=== PATIENT | female | born 1950 | race Caucasian/White ===

== ENCOUNTER → 2024-02-02 10:28 | Outpatient (REF) | payer MEDICARE, OTHER, SELFPAY | LOC: RCS 10:28 | PROVIDERS: ATTENDING PHYSICIAN Internal Medicine Cardiovascular Disease | DX: I34.1 Nonrheumatic mitral (valve) prolapse (principal); I48.0 Paroxysmal atrial fibrillation | CPT/HCPCS: 93306; 93356 ==

== ENCOUNTER → 2024-02-04 09:07 | Outpatient (REF) | payer MEDICARE, OTHER, SELFPAY ==
[2024-02-04 11:14] LABS: TSH 0.02 uIU/ml (0.47-4.68)
== END ==
LOC: REG 09:07
PROVIDERS: ATTENDING PHYSICIAN Internal Medicine Endocrinology, Diabetes & Metabolism; FAMILY PHYSICIAN Family Medicine
DX: E89.0 Postprocedural hypothyroidism (principal)
CPT/HCPCS: 36415; 84443

== ENCOUNTER → 2024-03-17 08:55 | Outpatient (REF) | payer MEDICARE, OTHER, SELFPAY ==
[2024-03-17 10:54] LABS: TSH < 0.02 uIU/ml (0.47-4.68)
== END ==
LOC: REG 08:55
PROVIDERS: ATTENDING PHYSICIAN Internal Medicine Endocrinology, Diabetes & Metabolism; FAMILY PHYSICIAN Family Medicine
DX: E89.0 Postprocedural hypothyroidism (principal)
CPT/HCPCS: 36415; 84443

== ENCOUNTER → 2024-05-10 11:26 | Outpatient (REF) | payer MEDICARE, OTHER, SELFPAY ==
[2024-05-10 13:08] LABS: % Basophils 0.2 % (0-2); % Immature Granulocytes 0.5 % (0-0.5); % Lymphocytes 6.6 % (20.5-51.1); % Monocytes 2.2 % (1.7-9.3); % Neutrophils 90.5 % (42.2-75.2); Absolute Immature Granulocytes 0.1 10^3/uL (0-0.05); Absolute Lymphocytes 0.9 10^3/uL (1.2-3.4); Absolute Monocytes 0.3 10^3/uL (0.1-0.6); Absolute Neutrophils 11.8 10^3/uL (1.4-6.5); Hematocrit 38.2 % (37.0-47.0); Mean Corpuscular Hgb 31.2 pg (27.0-31.0); Mean Corpuscular Volume 91.6 fL (81.0-99.0); Mean Platelet Volume 9.4 fL (7.4-10.4); Nucleated Red Blood Cells % 0 %; Platelet Count 289 10^3/uL (130-400); Red Blood Cell Count 4.17 10^6/uL (4.20-5.40); Red Cell Dist. Width 16.7 % (11.5-14.5)
[2024-05-10 13:55] LABS: ALT (SGPT) 34 U/L (0-35); AST (SGOT) 36 U/L (14-36); Albumin 4.3 g/dl (3.5-5.0); Alkaline Phosphatase 101 U/L (38-126); Blood Urea Nitrogen 20 mg/dl (7-17); Calcium 9.3 mg/dl (8.4-10.2); Carbon Dioxide 30 mmol/L (22-30); Chloride 100 mmol/L (98-107); Glucose 124 mg/dl (70-99); Potassium 4.9 mmol/L (3.5-5.1); Sodium 134 mmol/L (135-145); Total Bilirubin 0.5 mg/dl (0.2-1.3); Total Protein 6.8 g/dl (6.3-8.2); eGFR > 60.00
[2024-05-10 14:08] LABS: Free T4 1.61 ng/dl (0.78-2.19)
[2024-05-10 14:29] LABS: TSH 0.09 uIU/ml (0.47-4.68)
== END ==
LOC: REG 11:26
PROVIDERS: ATTENDING PHYSICIAN Internal Medicine Endocrinology, Diabetes & Metabolism; FAMILY PHYSICIAN Family Medicine; REFERRING PHYSICIAN Internal Medicine Medical Oncology
DX: E89.0 Postprocedural hypothyroidism (principal); C25.9 Malignant neoplasm of pancreas, unspecified
CPT/HCPCS: 36415; 80053; 84439; 84443; 85025; 86301

== ENCOUNTER → 2024-06-14 08:45 | Outpatient (REF) | payer MEDICARE, OTHER, SELFPAY ==
[2024-06-14 09:44] LABS: % Eosinophils 2.9 % (0-6); % Immature Granulocytes 0.2 % (0-0.5); % Lymphocytes 29.7 % (20.5-51.1); % Monocytes 9.8 % (1.7-9.3); % Neutrophils 56.4 % (42.2-75.2); Absolute Basophils 0.1 10^3/uL (0-0.2); Absolute Eosinophils 0.2 10^3/uL (0-0.7); Absolute Lymphocytes 2.5 10^3/uL (1.2-3.4); Absolute Monocytes 0.8 10^3/uL (0.1-0.6); Absolute Neutrophils 4.7 10^3/uL (1.4-6.5); Hematocrit 42.5 % (37.0-47.0); Hemoglobin 14.5 g/dL (12.0-16.0); Mean Corp Hgb Conc. 34.1 g/dL (33.0-37.0); Mean Corpuscular Hgb 31.3 pg (27.0-31.0); Mean Corpuscular Volume 91.6 fL (81.0-99.0); Mean Platelet Volume 9.3 fL (7.4-10.4); Nucleated Red Blood Cells % 0 %; Platelet Count 280 10^3/uL (130-400); Red Blood Cell Count 4.64 10^6/uL (4.20-5.40); Red Cell Dist. Width 15.7 % (11.5-14.5); White Blood Cell Count 8.4 10^3/uL (4.8-10.8)
[2024-06-14 11:46] LABS: ALT (SGPT) 38 U/L (0-35); AST (SGOT) 55 U/L (14-36); Albumin 4.8 g/dl (3.5-5.0); Alkaline Phosphatase 102 U/L (38-126); Blood Urea Nitrogen 16 mg/dl (7-17); Calcium 9.8 mg/dl (8.4-10.2); Carbon Dioxide 27 mmol/L (22-30); Chloride 100 mmol/L (98-107); Glucose 113 mg/dl (70-99); Sodium 141 mmol/L (135-145); Total Bilirubin 0.6 mg/dl (0.2-1.3); Total Protein 7.4 g/dl (6.3-8.2); eGFR > 60.00
[2024-06-16 02:49] LABS: CA 19-9 <2 U/mL (<=35)
== END ==
LOC: REG 08:45
PROVIDERS: ATTENDING PHYSICIAN Internal Medicine Medical Oncology; FAMILY PHYSICIAN Family Medicine
DX: C25.9 Malignant neoplasm of pancreas, unspecified (principal)
CPT/HCPCS: 36415; 80053; 85025; 86301

== ENCOUNTER → 2024-08-21 09:03 | Outpatient (REF) | payer MEDICARE, OTHER, SELFPAY ==
[2024-08-21 09:48] LABS: % Basophils 0.8 % (0-2); % Eosinophils 2.7 % (0-6); % Immature Granulocytes 0.3 % (0-0.5); % Lymphocytes 25.7 % (20.5-51.1); % Monocytes 10.3 % (1.7-9.3); % Neutrophils 60.2 % (42.2-75.2); Absolute Basophils 0.1 10^3/uL (0-0.2); Absolute Eosinophils 0.2 10^3/uL (0-0.7); Absolute Lymphocytes 1.9 10^3/uL (1.2-3.4); Absolute Monocytes 0.8 10^3/uL (0.1-0.6); Absolute Neutrophils 4.4 10^3/uL (1.4-6.5); Hematocrit 44.7 % (37.0-47.0); Hemoglobin 15.6 g/dL (12.0-16.0); Mean Corp Hgb Conc. 34.9 g/dL (33.0-37.0); Mean Corpuscular Hgb 31.7 pg (27.0-31.0); Mean Corpuscular Volume 90.9 fL (81.0-99.0); Mean Platelet Volume 9.5 fL (7.4-10.4); Nucleated Red Blood Cells % 0 %; Platelet Count 373 10^3/uL (130-400); Red Blood Cell Count 4.92 10^6/uL (4.20-5.40); Red Cell Dist. Width 15.7 % (11.5-14.5); White Blood Cell Count 7.3 10^3/uL (4.8-10.8)
[2024-08-21 11:07] LABS: ALT (SGPT) 78 U/L (0-35); AST (SGOT) 74 U/L (14-36); Albumin 4.3 g/dl (3.5-5.0); Alkaline Phosphatase 171 U/L (38-126); Blood Urea Nitrogen 20 mg/dl (7-17); Calcium 9.6 mg/dl (8.4-10.2); Carbon Dioxide 28 mmol/L (22-30); Chloride 101 mmol/L (98-107); Glucose 117 mg/dl (70-99); Potassium 4.9 mmol/L (3.5-5.1); Sodium 141 mmol/L (135-145); Total Bilirubin 0.4 mg/dl (0.2-1.3); eGFR > 60.00
[2024-08-21 11:10] LABS: TSH 3.64 uIU/ml (0.47-4.68)
[2024-08-22 17:13] LABS: Thyroglobulin <0.1 ng/mL (1.3-31.8); Thyroglobulin Antibodies <0.9 IU/mL (0.0-4.0)
== END ==
LOC: REG 09:03
PROVIDERS: ATTENDING PHYSICIAN Internal Medicine Endocrinology, Diabetes & Metabolism; FAMILY PHYSICIAN Family Medicine
DX: E89.0 Postprocedural hypothyroidism (principal); C73 Malignant neoplasm of thyroid gland
CPT/HCPCS: 36415; 80053; 84432; 84443; 85025; 86800

== ENCOUNTER 2024-10-08 12:12 | Emergency (ER) | payer MEDICARE, OTHER, SELFPAY ==
[2024-10-08 12:13] VITALS: BP 150/84
[2024-10-08 13:20] VITALS: BP 138/83
[2024-10-08 13:23] VITALS: BP 138/83
[2024-10-08 14:16] VITALS: BP 124/68
[2024-10-08] MEDS: NSS 1000 IV (14:18)
[2024-10-08] MEDS: MORPHINE SULFATE 4 MG IV (14:19)
[2024-10-08] MEDS: ZOFRAN 4 MG IV (14:19)
[2024-10-08 14:29] LABS: % Basophils 0.5 % (0-2); % Eosinophils 0.8 % (0-6); % Immature Granulocytes 0.4 % (0-0.5); % Lymphocytes 7.4 % (20.5-51.1); % Monocytes 1.6 % (1.7-9.3); % Neutrophils 89.3 % (42.2-75.2); Absolute Basophils 0.1 10^3/uL (0-0.2); Absolute Eosinophils 0.1 10^3/uL (0-0.7); Absolute Lymphocytes 0.8 10^3/uL (1.2-3.4); Absolute Monocytes 0.2 10^3/uL (0.1-0.6); Absolute Neutrophils 9.8 10^3/uL (1.4-6.5); Hematocrit 36.5 % (37.0-47.0); Hemoglobin 12.7 g/dL (12.0-16.0); Mean Corp Hgb Conc. 34.8 g/dL (33.0-37.0); Mean Corpuscular Hgb 32.2 pg (27.0-31.0); Mean Corpuscular Volume 92.4 fL (81.0-99.0); Mean Platelet Volume 9.3 fL (7.4-10.4); Nucleated Red Blood Cells % 0 %; Platelet Count 214 10^3/uL (130-400); Red Blood Cell Count 3.95 10^6/uL (4.20-5.40); Red Cell Dist. Width 17.1 % (11.5-14.5); White Blood Cell Count 10.9 10^3/uL (4.8-10.8)
--- NOTE | 2024-10-08 14:39 | ED.GENMED ---
History of Present Illness
General
Chief Complaint: Cancer Problem
Source: patient
Exam Limitations: none
Time Seen by Provider: 10/08/24 13:43
Nursing documentation reviewed up to this point in time: agreed with
History of Present Illness
History of Present Illness:
74-year-old female with history of hypothyroidism, stage IV pancreatic cancer presents to the emergency room with her for evaluation mainly of leg pain and pelvic pain. Patient unfortunately was diagnosed with stage IV pancreatic cancer and
has been mainly following through [facility] (Dr. Tristan Porter is her oncologist) although she recently did a clinical trial through [facility] which was unfortunately unsuccessful. After this clinical trial she had about a month of chemotherapy
holiday and unfortunately during that period had significant progression of her cancer found to have metastasis to liver and lung and so she was recently started on chemotherapy once again. Throughout the past few months she has been having pains
in her left leg. 2 weeks ago as part of diagnostic workup she had an ultrasound of the leg that was negative for DVT. She has been managing her symptoms with Tylenol and Motrin but she feels that her symptoms are worsening and she says she cannot
even sleep due to her left leg pain mainly. She discussed with her oncologist who recommended she come to the emergency room for evaluation and pain management. She has noticed a small bump on the medial aspect of the left stewart but no edema. No
change in the skin. She denies any trauma or injury. She also reports some pain into the left groin. She denies any significant back pain. She has had abdominal pains and various chest pains related to her cancer but nothing new recently. She
denies any other new complaints
Past History
Past History
ED Past Medical History: Cancer and Hypothyroidism
ED Past Surgical History: Other
Social History
Tobacco: Non-smoker
Personal:
Living: with family
Review of Systems
Review of Systems
All Other Systems: ROS reviewed and negative except as documented in HPI and ROS
Constitutional: Denies fever
Musculoskeletal: Reports other (Leg and groin pain)
Skin: Denies rash
Phy Exam
Physical Exam
Physical Exam:
General: Awake, alert, oriented x3; no acute distress
Head: Normocephalic, atraumatic
Eyes: Conjunctiva normal, sclera anicteric
Throat: Airway intact, handling secretions
Neck: Trachea midline
Lungs: Breathing comfortably no distress
Heart: Regular rate
Abd: Soft, non distended, nontender
Neuro: Cranial nerves grossly intact, speech fluid
Skin: no rash, no wounds, no erythema or ecchymosis to the leg
Extremities: No edema in extremities, equal pulses in all extremities; she does have some mild tenderness around the left mid stewart and a firm nodule left mid stewart which is tender to the touch but no overlying skin changes
Scores
Heart Failure Risk
Heart Failure Risk Score: Not Applicable
Heart Score for Chest Pain Patients
STEMI patient?: Not applicable
Withdrawal Assessment of Alcohol
Withdrawal Assessment Completed?: Not applicable
Course
Orders/Labs/Results
Orders:
Orders
10/08/24 13:44
HYDROmorphone [Dilaudid] 1 mg IV NOW STA
Ondansetron Injectable [Zofran] 4 mg IV NOW STA
10/08/24 13:45
0.9% Sodium Chloride 1000 ml [Nss] 1,000 ml IV BOLUS
10/08/24 14:03
CR Leg Tibia/fibula Left 2 Vw Urgent
Comment:
Reason For Exam: leg pain, cancer history
10/08/24 14:05
Morphine Sulfate 4 mg IV NOW STA
10/08/24 14:15
CA 19-9 [S] Urgent
Complete Blood Count/With Diff Urgent
Comprehensive Metabolic Panel Urgent
Lipase Urgent
10/08/24 15:09
US Periph Venous LOWER Ext LT Urgent
Comment:
Reason For Exam: left leg pain
10/08/24 16:31
Urinalysis Reflex To Culture Urgent
Date Specimen was Collected: 10/08/24
Time Specimen was Collected: 16:30
Urine Microscopic Reflex Cult Urgent
10/08/24 17:40
Ibuprofen [Motrin] 400 mg PO NOW STA
Oxycodone [Roxicodone] 2.5 mg PO NOW STA
Abnormal Lab Results
10/08/24 10/08/24
14:15 16:31
WBC 10.9 H 10^3/uL
(4.8-10.8)
RBC 3.95 L 10^6/uL
(4.20-5.40)
Hct 36.5 L %
(37.0-47.0)
MCH 32.2 H pg
(27.0-31.0)
RDW 17.1 H %
(11.5-14.5)
Absolute Neuts (auto) 9.8 H 10^3/uL
(1.4-6.5)
Absolute Lymphs (auto) 0.8 L 10^3/uL
(1.2-3.4)
Neutrophils % 89.3 H %
(42.2-75.2)
Lymphocytes % 7.4 L %
(20.5-51.1)
Monocytes % 1.6 L %
(1.7-9.3)
Sodium 131 L mmol/L
(135-145)
Chloride 97 L mmol/L
(98-107)
BUN 18 H mg/dl
(7-17)
Glucose 112 H mg/dl
(70-99)
AST 147 H U/L
(14-36)
ALT 125 H U/L
(0-35)
Alkaline Phosphatase 261 H U/L
(38-126)
Urine Ketones 1+ A
(Negative)
Leukocyte Esterase Rfl Trace A
(Negative)
Urine Bacteria (Reflex) Few A
(Negative)
10/08/24 14:15
10/08/24 14:15
Vital Signs
Initial and Last Documented VS:
Initial Vital Signs
Temp Pulse Resp BP Pulse Ox
36.5 C 92 16 150/84 97
10/08/24 12:13 10/08/24 12:13 10/08/24 12:13 10/08/24 12:13 10/08/24 12:13
Last Documented Vital Signs
Temp Pulse Resp BP Pulse Ox
36.5 C 93 16 126/75 93
10/08/24 12:13 10/08/24 13:23 10/08/24 13:23 10/08/24 17:00 10/08/24 17:15
MDM/Problems Addressed
Differential Diagnosis Includes:
Bony metastasis, contusion/hematoma, DVT
MDM/Problems Addressed:
74-year-old female presents for evaluation of worsening pain in the left leg in the setting of metastatic pancreatic cancer. Pain uncontrolled with Tylenol and Motrin. No trauma or injury. Vitals and exam as above. She was ruled out for DVT 2
weeks ago at [facility]�can repeat interval scan to definitively rule out. Will send basic labs�patient is due for outpatient lab work and would like to have them drawn today (CBC, CMP, CA 19-9). Will check x-ray of the left leg. Will discuss with
patient's oncologist�patient would like to limit diagnostic she says that she has been given a prognosis of 2 months to live and that she is working towards palliative treatment and really mainly wants to focus on pain control for her symptoms at
this point in time. Will treat symptomatically.
Discussed case with patient's oncologist Dr. Porter. Possible that this is bony mets versus radiculopathy versus pain from enlarging lymph nodes. Agreed with workup as above, pain control and outpatient follow-up.
Labs reviewed: CBC unremarkable, CMP no clinically significant abnormalities. X-ray negative for any bony pathology. DVT study negative. Patient's pain was well-controlled here. I had a long discussion with patient and . I did explain
that MRI would probably be the next diagnostic steps to evaluate if this is a radicular pain from lumbar pathology. Offered admission for MRI and symptom control versus discharge with pain control and outpatient follow-up as planned�mary is
scheduled for outpatient MRI within a week. She feels comfortable with discharge with pain control and outpatient follow-up. Urged to return if symptoms are worsening. All questions answered.
Chronic conditions affecting care:
Pancreatic cancer
Acute Exacerbation and/or Progression of Chronic Illness:
Acutely hypertensive
Acute Exacerbation and/or Progression of Chronic Illness: HTN
*Radiology
Radiology exam reviewed: radiology read reviewed
*Pulse Oximetry
Patient hypoxic: no
*Critical Care Note
Total Time (30-74mins, 75-104mins- exclusive of procedures): Not Applicable
Data Reviewed
Source: patient, records and spouse
Patient Management
Discussion with other providers: Senior Account Clerk (Discussed with patient's oncologist)
ED Attending Note
-
Portions of this chart may have been created with voice recognition software.� Occasional wrong word or��sound alike� substitutions may have occurred due to the inherent limitations of voice recognition software.
Discharge Plan
Departure
Patient Disposition: Home (Routine Discharge)
Date of Disposition: 10/08/24
Time of Disposition: 17:44
Patient with high blood pressure during this ER visit?: Yes
Discharge Problem:
Leg pain
Instructions: Cancer Pain Syndromes (DC)
Prescriptions:
New
oxycodone 5 mg tablet
5 mg PO Q4H PRN (Reason: Pain) Qty: 20 0RF
No Action
levothyroxine 88 MCG tablet
88 mcg PO SUTUWETHFRSA
ascorbic acid (vitamin C) [Vitamin C] 500 MG tablet
1,000 mg PO DAILY
diphenhydramine HCl [Banophen] 25 MG capsule
25 mg PO DAILYPRN PRN (Reason: ALLERGY TO COLD)
Patient Comments:
COLD UTICARIA
epinephrine [EpiPen] 0.3 MG/0.3/SYRINGE auto-injector
0.3 mg IM PRN PRN (Reason: ALLERGIC REACTION TO COLD)
Patient Comments:
COLD UTICARIA
methylprednisolone [Medrol (Patrick)] 4 MG tablets,dose pack
4 tab PO . DIRECT PRN
Patient Comments:
COLD URTICARIA
albuterol sulfate 1 PUFF HFA aerosol inhaler
2 puff inhalation R Q4HPRN PRN (Reason: SOB FROM COLD ALLERGY)
cholecalciferol (vitamin D3) 1,000 UNITS tablet
1,000 units PO DAILY
omega-3 fatty acids-fish oil 1 EACH capsule
1 ea PO DAILY
multivitamin with folic acid [Tab-A-Adina] 1 TABLET tablet
1 tab PO DAILY
Biotin
2 tab PO DAILY
Calcium 400mg
400 mg PO TID@0800,1200,1600
Referrals:
Damon Sousa MD [Family Provider] - Call in 1-3 days for appt
Tristan Porter MD [Non-Admitting Privileges] - Keep scheduled appt
Activity Restrictions/Additional Instructions:
Thank you for visiting the Emergency Department at [facility].
1. Please schedule a follow up appointment as directed. Call first thing tomorrow morning to make an appointment.
2. If indicated, please take your medications as instructed and indicated on discharge paperwork.
3. If any of your symptoms do not improve, or persist, or become more severe within 6-12 hours, please return to the emergency department for further care.
4. Please return to the emergency department if you develop a headache, neck pain/stiffness, fever greater than 100.4F, chest pain, shortness of breath, persistent nausea, vomiting, slurred speech, difficulty walking, numbness/tingling, weakness,
signs of infection or any other symptoms that are worrisome to you.
Please call [phone] if you have any questions.
Interventions
Interventions:
*Risk Screen - Suicide Last Done: 10/08/24 12:13
*General Assessment Last Done: 10/08/24 13:23
*Neglect/Abuse Screening Last Done: 10/08/24 13:18
ED- Fall Risk Assessment Last Done: 10/08/24 13:24
*ED COVID-19 Vaccine History Last Done: 10/08/24 13:18
Discharge Date and Time
Print Language: TELUGU
[2024-10-08 14:46] LABS: ALT (SGPT) 125 U/L (0-35); AST (SGOT) 147 U/L (14-36); Albumin 4.1 g/dl (3.5-5.0); Alkaline Phosphatase 261 U/L (38-126); Blood Urea Nitrogen 18 mg/dl (7-17); Calcium 8.7 mg/dl (8.4-10.2); Carbon Dioxide 28 mmol/L (22-30); Chloride 97 mmol/L (98-107); Glucose 112 mg/dl (70-99); Lipase 40 U/L (23-300); Potassium 4.7 mmol/L (3.5-5.1); Sodium 131 mmol/L (135-145); Total Bilirubin 0.6 mg/dl (0.2-1.3); Total Protein 6.6 g/dl (6.3-8.2); eGFR > 60.00
[2024-10-08 16:13] VITALS: BP 114/59
[2024-10-08 16:57] LABS: Urine Albumin Trace (Neg - Trace); Urine Bilirubin Negative (Negative); Urine Character Clear (Clear); Urine Color Yellow; Urine Glucose Negative (Negative); Urine Ketone 1+ (Negative); Urine Leukocyte Trace (Negative); Urine Nitrite Negative (Negative); Urine Occult Blood Negative (Negative); Urine Urobilinogen Negative (Neg - 1+)
[2024-10-08 17:00] VITALS: BP 126/75
[2024-10-08 17:14] LABS: Urine Squamous Cell 0-2 /LPF (Few)
[2024-10-08 17:15] LABS: Urine Bacteria Few (Negative); Urine Red Blood Cell 0-2 /HPF (0-2)
[2024-10-08] MEDS: ROXICODONE 2.5 MG PO (17:55)
[2024-10-08] MEDS: MOTRIN 400 MG PO (17:55)
[2024-10-10 19:49] LABS: CA 19-9 <2 U/mL (<=35)
== END 2024-10-08 18:31 | disposition home or self-care (01) ==
LOC: EMR 12:12
PROVIDERS: EMERGENCY PHYSICIAN Emergency Medicine; FAMILY PHYSICIAN Family Medicine
DX: M79.605 Pain in left leg (principal); C25.9 Malignant neoplasm of pancreas, unspecified; C78.7 Secondary malignant neoplasm of liver and intrahepatic bile duct; C78.00 Secondary malignant neoplasm of unspecified lung; E03.9 Hypothyroidism, unspecified
CPT/HCPCS: 96374; 96375; 96361; 99284; 73590; 80053; 81003; 81015; 83690; 85025; 86301; 93971

== ENCOUNTER → 2024-10-17 11:56 | Outpatient (REF) | payer MEDICARE, OTHER, SELFPAY | LOC: RAD 11:56 | PROVIDERS: ATTENDING PHYSICIAN Internal Medicine Hospice and Palliative Medicine; FAMILY PHYSICIAN Family Medicine | DX: C25.9 Malignant neoplasm of pancreas, unspecified (principal) | CPT/HCPCS: 71046 ==

== ENCOUNTER 2024-10-18 16:14 | Inpatient (IN) | payer MEDICARE, OTHER, SELFPAY ==
[2024-10-18] VITALS (20 sets, daily range): BP systolic 88–141; BP diastolic 55–88
--- NOTE | 2024-10-18 11:20 | ED.GENMED ---
ED Provider Triage
<JAREN Juarez - Last Filed: 10/18/24 11:27>
-
Patient seen by provider in Triage?: Seen in Triage
Attestation: A medical screening examination has been initiated by a qualified medical provider. Based on the assessment performed at this time, it has been determined that an emergent medical condition may exist and the patient has been informed
that further medical evaluation and possible additional diagnostic testing may be needed.
HPI: 74 yr old female with hx of stage 4 pancreatic cancer w/ lung mets presents for SOB since last Tuesday. Pt had outpt chest xray yesterday suspicious for pneumonia. Pt has had cough /sweating however SOB has been getting worse.
GENERAL: Alert , in no apparent distress
EYE: No visual abnormalities.
NECK: Trachea midline
ENT: No visible abnormalities.
LUNGS: No acute respiratory distress
NEUROLOGICAL: Alert and oriented
SKIN: Skin intact. No visible changes.
MUSCULOSKELETAL: Moving extremities normally
PSYCH: Normal and appropriate interaction.
This is a medical evaluation conducted in person to initiate diagnostic evaluation and provide initial therapeutics. Please see further documentation by the treating clinician.
History of Present Illness
<JAREN Juarez - Last Filed: 10/18/24 11:27>
General
Chief Complaint: Breathing Problem
Time Seen by Provider: 10/18/24 14:39
<Mauricio Lopez MD - Last Filed: 10/18/24 21:19>
General
Source: patient
Exam Limitations: none
Nursing documentation reviewed up to this point in time: agreed with
History of Present Illness
History of Present Illness:
74-year-old female with past medical history of hypothyroidism, stage IV pancreatic cancer presents to the emergency room with her for evaluation of shortness of breath. Patient follows through [facility] for treatment of her pancreatic
cancer. Patient reports that since last Tuesday she has had progressive shortness of breath associate with mild nonproductive cough. She denies any chest pain. Denies any swelling in the legs although she has had pain in her legs which she was
evaluated for including multiple negative DVT studies. She says that she disclosed the symptoms to her oncologist who sent her for an x-ray yesterday which was concerning for pneumonia and significant pleural effusion; she was referred to the ER
and was recommended for follow-up CT of the chest today.
Past History
<JAREN Juarez - Last Filed: 10/18/24 11:27>
Past History
ED Past Medical History: Cancer and Hypothyroidism
ED Past Surgical History: Other
Social History
Tobacco: Non-smoker
Personal:
Living: with family
Review of Systems
<Mauricio Lopez MD - Last Filed: 10/18/24 21:19>
Review of Systems
All Other Systems: ROS reviewed and negative except as documented in HPI and ROS
Constitutional: Denies fever or chills
Respiratory: Reports cough and trouble breathing
Cardiac: Denies chest pain
Musculoskeletal: Reports muscle pain; Denies edema
Neurological: Denies headache
Phy Exam
<Mauricio Lopez MD - Last Filed: 10/18/24 21:19>
Physical Exam
Physical Exam:
General: Awake, alert, oriented x3; anxious appearing
Head: Normocephalic, atraumatic
Eyes: Conjunctiva normal, sclera anicteric
Throat: Airway intact, handling secretions
Neck: Trachea midline, supple without meningismus
Lungs: Patient is tachypneic and conversationally dyspneic; low normal pulse ox; breath sounds diminished throughout all lung orosco, no focal wheezing rales or rhonchi appreciated
Heart: Regular rate and rhythm, no murmurs, gallops, or rubs
Neuro: No gross deficits
Skin: Warm and dry
Extremities: No edema in extremities, warm and well-perfused
Scores
<Mauricio Lopez MD - Last Filed: 10/18/24 21:19>
Heart Failure Risk
Heart Failure Risk Score: Not Applicable
Heart Score for Chest Pain Patients
STEMI patient?: Not applicable
Withdrawal Assessment of Alcohol
Withdrawal Assessment Completed?: Not applicable
Course
<JAREN Juarez - Last Filed: 10/18/24 11:27>
Orders/Labs/Results
Orders:
Orders
10/18/24 11:23
Electrocardiogram (*1) Stat
Reason for Study: Other
Other Reason for Exam: chest pain
CT Chest PE Study Urgent
Comment:
Reason For Exam: SOb hx of pancreatic cancer w/ mets
EKG- Treatment ONCE
10/18/24 11:32
Complete Blood Count/With Diff Urgent
Comprehensive Metabolic Panel Urgent
10/18/24 Dinner
Regular
At Your Request: Full Participation
10/18/24 15:28
IR[facility] CONSULT Urgent
Consulting Provider: Kapil Pitts
Was physician already notified: Yes
Reason for Consult/Procedure: thoracentesis
Acknowledgement that appropriate orders are entered: Yes
10/18/24 15:29
LevoFLOXacin 750 MG/150 ML [Levaquin] 750 mg in 150 ml IV NOW
10/18/24 15:33
Sputum Culture [Respiratory Culture/Gram Stain] Urgent
JOHN Source: Sputum
Specimen Description:
10/18/24 15:39
COVID-19 Antigen Urgent
Source: Nasal Swab
Blood Culture Q30M
JOHN Source: Blood/Venous
Specimen Description:
Influenza A+B Rapid Molecular Urgent
JOHN Source: Nasal Swab
Specimen Description:
10/18/24 15:53
Blood Culture Q30M
JOHN Source: Blood/Venous
Specimen Description:
10/18/24 15:54
Admit/Transfer Patient As Directed
Co-Sign Provider:
Level of Care: Inpatient admission
Assign to:: Medical/Surgical
Physician / Group: robert
Diagnosis: pneumonia
Reason for Hospitalization: pneumonia, pleural effusions
Expected length of stay greater than two midnights?: Yes
ELOS- Estimated Length of Stay in days: 2
I certify the patient meets the requirements for IP care: Yes
10/18/24 15:55
Code Status As Directed
Resuscitation Status: Full Code
PRN Pain Medication Management As Directed
May give lesser potent ordered pain med per pt: Yes
preference::
Protocol:: Medication orders for pain may be administered in a
manner that supports deferring to patient preference
when the pt is:
- Requesting an ordered lesser potent pain medication.
Least to most potent pain medications are defined
as: acetaminophen < NSAID < tramadol < opioids
(morphine, oxycodone, hydromorphone).
- Requesting a lesser dose of the same medication IF
ORDERED.
- Requesting a less intrusive route of administration
if both routes are prescribed by the provider (PO <
IV).
10/18/24 15:58
Legionella Urinary Antigen Urgent
JOHN Source: Urine
Specimen Description:
MRSA Screen Routine
JOHN Source: Nose
Specimen Description:
Strep pneumoniae Antigen Urgent
JOHN Source: Urine
Specimen Description:
10/18/24 16:55
Body Fluid Amylase Routine
Fluid Source: Pleural
Date Specimen was Collected: 10/18/24
Time Specimen was Collected: 16:57
Body Fluid Glucose Routine
Fluid Source: Pleural
Date Specimen was Collected: 10/18/24
Time Specimen was Collected: 16:57
Body Fluid LDH Routine
Fluid Source: Pleural
Date Specimen was Collected: 10/18/24
Time Specimen was Collected: 16:57
Body Fluid Protein Routine
Fluid Source: Pleural
Body Fluid Triglycerides Routine
Fluid Source: Pleural
Date Specimen was Collected: 10/18/24
Time Specimen was Collected: 16:57
Body Fluid pH Routine
Fluid Source: Pleural
Date Specimen was Collected: 10/18/24
Time Specimen was Collected: 16:57
Fluid Culture with Gram Stain Routine
JOHN Source: Pleural Fluid
Specimen Description:
Comment: post procedure
IRAD Cytology Routine
Date Specimen was Collected: 10/18/24
Time Specimen was Collected: 16:57
Source: Pleural Fluid, Right
Clinical Impression: pna, panc cancer lung mets
History of Malignancy: yes
History of Radiation / Chemotherapy: yes
Submitting Physician: Dr. pitts
10/18/24 16:59
Body Fluid Cell Count Routine
What is the Body Fluid: pleural fluid
Date Specimen was Collected: 10/18/24
Time Specimen was Collected: 16:47
Comment: post procedure
Fluid Culture with Gram Stain Routine
JOHN Source: Pleural Fluid
Specimen Description:
Date Specimen was Collected: 10/18/24
Time Specimen was Collected: 16:47
Comment: post procedure
10/18/24 18:07
Ondansetron HCl [Zofran] 8 mg PO Q8HPRN PRN
10/18/24 19:25
0.9% Sodium Chloride 1000 ml [Nss] 1,000 ml IV 100 mls/hr
Acetaminophen [Tylenol] 650 mg PO Q4HPRN PRN
VANCOMYCIN Pharmacy to Dose [VANCOCIN Pharmacy to Dose] 1 each Pharmacy To Prepare [Call Pharmacy To Prepare] 0 ml IV PER PROTOCOL
10/18/24 19:25
LDH Routine
Comment: post procedure, add on to morning labs if already drawn
Total Protein Routine
Comment: post procedure, add on to morning labs if already drawn
Activity As Directed
Activity Level: As Tolerated
Vital Signs As Directed
Frequency: Per unit guidelines
DX Deep Vein Thrombosis Video Routine
10/18/24 20:00
Calcium Carbonate [Oscal Camacho 500] 500 mg PO BID
Heparin 5,000 units SC Q12
Oxycodone [Roxicodone] 5 mg PO Q6H
10/18/24 21:00
Ibuprofen [Motrin] 400 mg PO Q6H
10/18/24 22:00
Loratadine [Claritin] 10 mg PO HS
10/19/24 06:00
Complete Blood Count/With Diff IN AM
Comprehensive Metabolic Panel IN AM
Levothyroxine [Synthroid] 88 mcg PO DAILY @ 0600
10/19/24 08:00
Ascorbic Acid [Vitamin C] 1,000 mg PO DAILY
Cholecalciferol (Vitamin D3) [VITAMIN D3 (cholecalciferol)] 25 mcg PO DAILY
Multivitamin [Theragran] 1 tablet PO DAILY
10/20/24 16:00
LevoFLOXacin 750 MG/150 ML [Levaquin] 750 mg in 150 ml IV Q48H
Abnormal Lab Results
10/18/24
11:32
RBC 3.73 L 10^6/uL
(4.20-5.40)
Hgb 11.9 L g/dL
(12.0-16.0)
Hct 34.7 L %
(37.0-47.0)
MCH 31.9 H pg
(27.0-31.0)
RDW 16.1 H %
(11.5-14.5)
MPV 10.7 H fL
(7.4-10.4)
Abs Immat Gran (auto) 0.1 H 10^3/uL
(0-0.05)
Immature Gran % 1.2 H %
(0-0.5)
Sodium 130 L mmol/L
(135-145)
Chloride 94 L mmol/L
(98-107)
BUN 20 H mg/dl
(7-17)
Glucose 114 H mg/dl
(70-99)
AST 111 H U/L
(14-36)
ALT 83 H U/L
(0-35)
Alkaline Phosphatase 332 H U/L
(38-126)
10/18/24 11:32
10/18/24 11:32
Vital Signs
Initial and Last Documented VS:
Initial Vital Signs
Temp Pulse Resp BP Pulse Ox
36.9 C 91 30 141/88 94
10/18/24 11:20 10/18/24 11:20 10/18/24 11:20 10/18/24 11:20 10/18/24 11:20
Last Documented Vital Signs
Temp Pulse Resp BP Pulse Ox
37.1 C 86 21 107/67 97
10/18/24 16:08 10/18/24 21:00 10/18/24 21:00 10/18/24 21:00 10/18/24 21:00
<Mauricio Lopez MD - Last Filed: 10/18/24 21:19>
Orders/Labs/Results
Orders:
Orders
10/18/24 11:23
Electrocardiogram (*1) Stat
Reason for Study: Other
Other Reason for Exam: chest pain
CT Chest PE Study Urgent
Comment:
Reason For Exam: SOb hx of pancreatic cancer w/ mets
EKG- Treatment ONCE
10/18/24 11:32
Complete Blood Count/With Diff Urgent
Comprehensive Metabolic Panel Urgent
10/18/24 Dinner
Regular
At Your Request: Full Participation
10/18/24 15:28
IRAD CONSULT Urgent
Consulting Provider: Kapil Pitts
Was physician already notified: Yes
Reason for Consult/Procedure: thoracentesis
Acknowledgement that appropriate orders are entered: Yes
10/18/24 15:29
LevoFLOXacin 750 MG/150 ML [Levaquin] 750 mg in 150 ml IV NOW
10/18/24 15:33
Sputum Culture [Respiratory Culture/Gram Stain] Urgent
JOHN Source: Sputum
Specimen Description:
10/18/24 15:39
COVID-19 Antigen Urgent
Source: Nasal Swab
Blood Culture Q30M
JOHN Source: Blood/Venous
Specimen Description:
Influenza A+B Rapid Molecular Urgent
JOHN Source: Nasal Swab
Specimen Description:
10/18/24 15:53
Blood Culture Q30M
JOHN Source: Blood/Venous
Specimen Description:
10/18/24 15:54
Admit/Transfer Patient As Directed
Co-Sign Provider:
Level of Care: Inpatient admission
Assign to:: Medical/Surgical
Physician / Group: robert
Diagnosis: pneumonia
Reason for Hospitalization: pneumonia, pleural effusions
Expected length of stay greater than two midnights?: Yes
ELOS- Estimated Length of Stay in days: 2
I certify the patient meets the requirements for IP care: Yes
10/18/24 15:55
Code Status As Directed
Resuscitation Status: Full Code
PRN Pain Medication Management As Directed
May give lesser potent ordered pain med per pt: Yes
preference::
Protocol:: Medication orders for pain may be administered in a
manner that supports deferring to patient preference
when the pt is:
- Requesting an ordered lesser potent pain medication.
Least to most potent pain medications are defined
as: acetaminophen < NSAID < tramadol < opioids
(morphine, oxycodone, hydromorphone).
- Requesting a lesser dose of the same medication IF
ORDERED.
- Requesting a less intrusive route of administration
if both routes are prescribed by the provider (PO <
IV).
10/18/24 15:58
Legionella Urinary Antigen Urgent
JOHN Source: Urine
Specimen Description:
MRSA Screen Routine
JOHN Source: Nose
Specimen Description:
Strep pneumoniae Antigen Urgent
JOHN Source: Urine
Specimen Description:
10/18/24 16:55
Body Fluid Amylase Routine
Fluid Source: Pleural
Date Specimen was Collected: 10/18/24
Time Specimen was Collected: 16:57
Body Fluid Glucose Routine
Fluid Source: Pleural
Date Specimen was Collected: 10/18/24
Time Specimen was Collected: 16:57
Body Fluid LDH Routine
Fluid Source: Pleural
Date Specimen was Collected: 10/18/24
Time Specimen was Collected: 16:57
Body Fluid Protein Routine
Fluid Source: Pleural
Body Fluid Triglycerides Routine
Fluid Source: Pleural
Date Specimen was Collected: 10/18/24
Time Specimen was Collected: 16:57
Body Fluid pH Routine
Fluid Source: Pleural
Date Specimen was Collected: 10/18/24
Time Specimen was Collected: 16:57
Fluid Culture with Gram Stain Routine
JOHN Source: Pleural Fluid
Specimen Description:
Comment: post procedure
IR[facility] Cytology Routine
Date Specimen was Collected: 10/18/24
Time Specimen was Collected: 16:57
Source: Pleural Fluid, Right
Clinical Impression: pna, panc cancer lung mets
History of Malignancy: yes
History of Radiation / Chemotherapy: yes
Submitting Physician: Dr. pitts
10/18/24 16:59
Body Fluid Cell Count Routine
What is the Body Fluid: pleural fluid
Date Specimen was Collected: 10/18/24
Time Specimen was Collected: 16:47
Comment: post procedure
Fluid Culture with Gram Stain Routine
JOHN Source: Pleural Fluid
Specimen Description:
Date Specimen was Collected: 10/18/24
Time Specimen was Collected: 16:47
Comment: post procedure
10/18/24 18:07
Ondansetron HCl [Zofran] 8 mg PO Q8HPRN PRN
10/18/24 19:25
0.9% Sodium Chloride 1000 ml [Nss] 1,000 ml IV 100 mls/hr
Acetaminophen [Tylenol] 650 mg PO Q4HPRN PRN
VANCOMYCIN Pharmacy to Dose [VANCOCIN Pharmacy to Dose] 1 each Pharmacy To Prepare [Call Pharmacy To Prepare] 0 ml IV PER PROTOCOL
10/18/24 19:25
LDH Routine
Comment: post procedure, add on to morning labs if already drawn
Total Protein Routine
Comment: post procedure, add on to morning labs if already drawn
Activity As Directed
Activity Level: As Tolerated
Vital Signs As Directed
Frequency: Per unit guidelines
DX Deep Vein Thrombosis Video Routine
10/18/24 20:00
Calcium Carbonate [Oscal Camacho 500] 500 mg PO BID
Heparin 5,000 units SC Q12
Oxycodone [Roxicodone] 5 mg PO Q6H
10/18/24 21:00
Ibuprofen [Motrin] 400 mg PO Q6H
10/18/24 22:00
Loratadine [Claritin] 10 mg PO HS
10/19/24 06:00
Complete Blood Count/With Diff IN AM
Comprehensive Metabolic Panel IN AM
Levothyroxine [Synthroid] 88 mcg PO DAILY @ 0600
10/19/24 08:00
Ascorbic Acid [Vitamin C] 1,000 mg PO DAILY
Cholecalciferol (Vitamin D3) [VITAMIN D3 (cholecalciferol)] 25 mcg PO DAILY
Multivitamin [Theragran] 1 tablet PO DAILY
10/20/24 16:00
LevoFLOXacin 750 MG/150 ML [Levaquin] 750 mg in 150 ml IV Q48H
Abnormal Lab Results
10/18/24
11:32
RBC 3.73 L 10^6/uL
(4.20-5.40)
Hgb 11.9 L g/dL
(12.0-16.0)
Hct 34.7 L %
(37.0-47.0)
MCH 31.9 H pg
(27.0-31.0)
RDW 16.1 H %
(11.5-14.5)
MPV 10.7 H fL
(7.4-10.4)
Abs Immat Gran (auto) 0.1 H 10^3/uL
(0-0.05)
Immature Gran % 1.2 H %
(0-0.5)
Sodium 130 L mmol/L
(135-145)
Chloride 94 L mmol/L
(98-107)
BUN 20 H mg/dl
(7-17)
Glucose 114 H mg/dl
(70-99)
AST 111 H U/L
(14-36)
ALT 83 H U/L
(0-35)
Alkaline Phosphatase 332 H U/L
(38-126)
10/18/24 11:32
10/18/24 11:32
Vital Signs
Initial and Last Documented VS:
Initial Vital Signs
Temp Pulse Resp BP Pulse Ox
36.9 C 91 30 141/88 94
10/18/24 11:20 10/18/24 11:20 10/18/24 11:20 10/18/24 11:20 10/18/24 11:20
Last Documented Vital Signs
Temp Pulse Resp BP Pulse Ox
37.1 C 86 21 107/67 97
10/18/24 16:08 10/18/24 21:00 10/18/24 21:00 10/18/24 21:00 10/18/24 21:00
<Mauricio Lopez MD - Last Filed: 10/18/24 21:19>
MDM/Problems Addressed
Differential Diagnosis Includes:
Pneumonia, malignant effusion, pneumothorax, pulmonary embolism, CHF
MDM/Problems Addressed:
74-year-old female presents for evaluation of worsening shortness of breath since Tuesday. She arrives to us with tachypnea, low normal pulse ox. Chest x-ray done as an outpatient yesterday showed bilateral pleural effusions and findings
concerning for pneumonia. Physical exam as above. Labs were sent in triage including a CBC and a CMP which showed no clinically significant abnormalities�she has stably abnormal LFTs and mild hyponatremia, stable anemia. She was ordered for a CT
chest in triage to rule out PE and to better evaluate findings on previous chest x-ray. I did review appears to show bilateral pneumonia with significant pleural effusions. Suspect will need thoracentesis, will cover with antibiotics. Will admit
for continued management. Case discussed with hospitalist for admission. Case discussed with IR to consider thoracentesis.
Chronic conditions affecting care:
Pancreatic cancer
<Mauricio Lopez MD - Last Filed: 10/18/24 21:19>
*Radiology
Radiology exam reviewed: preliminary read by ED provider and radiology read reviewed
*Pulse Oximetry
Patient hypoxic: no
*EKG
Interpreted by ED Provider?: Yes
Heart Rate: 90
Rate: normal
Rhythm: sinus and PAC's
[place]: left axis deviation
Interval: normal interval
QRS Pattern: normal QRS
Ischemia: no ischemia
*Critical Care Note
Total Time (30-74mins, 75-104mins- exclusive of procedures): Not Applicable
Data Reviewed
Review of Other/Old Records Reveals: Labs and Records
Source: patient, records and spouse
<Mauricio Lopez MD - Last Filed: 10/18/24 21:19>
Patient Management
Discussion with other providers: Hospitalist (Discussed with hospitalist)
Escalation/DeEscalation of care consider admission/obs:
Admission indicated
ED Attending Note
<JAREN Juarez - Last Filed: 10/18/24 11:27>
-
Portions of this chart may have been created with voice recognition software.� Occasional wrong word or��sound alike� substitutions may have occurred due to the inherent limitations of voice recognition software.
Discharge Plan
Departure
Patient Disposition: Admit
Date of Disposition: 10/18/24
Time of Disposition: 15:31
Admit to doctor: Robert
Presentation/result/management discussed w/ accepting MD/DO: Hospitalist
Discharge Problem:
Pneumonia, Pleural effusion
Interventions
Interventions:
*Risk Screen - Suicide Last Done: 10/18/24 11:20
*General Assessment Last Done: 10/18/24 11:20
ED- Fall Risk Assessment Last Done: 10/18/24 14:50
*ED COVID-19 Vaccine History Last Done: 10/18/24 11:20
ED- Cardiac Assessment Last Done: 10/18/24 14:50
ED- Pulmonary Assessment Last Done: 10/18/24 14:50
[2024-10-18 12:10] LABS: % Basophils 0.5 % (0-2); % Eosinophils 0.5 % (0-6); % Immature Granulocytes 1.2 % (0-0.5); % Lymphocytes 23.3 % (20.5-51.1); % Monocytes 5.9 % (1.7-9.3); % Neutrophils 68.6 % (42.2-75.2); Absolute Immature Granulocytes 0.1 10^3/uL (0-0.05); Absolute Lymphocytes 1.4 10^3/uL (1.2-3.4); Absolute Monocytes 0.4 10^3/uL (0.1-0.6); Absolute Neutrophils 4.1 10^3/uL (1.4-6.5); Hematocrit 34.7 % (37.0-47.0); Hemoglobin 11.9 g/dL (12.0-16.0); Mean Corp Hgb Conc. 34.3 g/dL (33.0-37.0); Mean Corpuscular Hgb 31.9 pg (27.0-31.0); Nucleated Red Blood Cells % 0 %; Red Blood Cell Count 3.73 10^6/uL (4.20-5.40); Red Cell Dist. Width 16.1 % (11.5-14.5)
[2024-10-18 12:13] LABS: ALT (SGPT) 83 U/L (0-35); AST (SGOT) 111 U/L (14-36); Albumin 4.3 g/dl (3.5-5.0); Alkaline Phosphatase 332 U/L (38-126); Blood Urea Nitrogen 20 mg/dl (7-17); Calcium 9.4 mg/dl (8.4-10.2); Carbon Dioxide 27 mmol/L (22-30); Chloride 94 mmol/L (98-107); Glucose 114 mg/dl (70-99); Potassium 4.6 mmol/L (3.5-5.1); Sodium 130 mmol/L (135-145); Total Bilirubin 0.6 mg/dl (0.2-1.3); eGFR 58.75
[2024-10-18 13:31] LABS: Mean Platelet Volume 10.7 fL (7.4-10.4); Platelet Count 142 10^3/uL (130-400)
[2024-10-18] MEDS: LEVAQUIN 150 IV (15:35)
--- NOTE | 2024-10-18 16:00 | HPS.HSE ---
Family Physician
-
Family Physician: Damon Sousa
Chief Complaint
-
cough, shortness of breath
History of Present Illness
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
asthma, osteopenia, melanoma in 2005, mitral valve prolapse, presenting with shortness of breath and productive cough since last Tuesday. Patient had outpatient chest x-ray yesterday suspicious for pneumonia. She has been having cough and
sweating.
She does not smoke or drink alcohol.
Medical History
Past Medical History
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
osteopenia, melanoma in 2005, mitral valve prolapse,)
Past Surgical History: Reports None
Social History
Tobacco: Non-smoker
Alcohol: None
Drug: None
Family History
Family History: Not pertinent
Allergies / Home Medications
Allergies reflects when Allergies were last updated in [employer].
Home Medications with original date entered in [employer]
Allergy/Medication List:
Allergies
Allergy/AdvReac Type Severity Reaction Status Date / Time
latex Allergy hives,rash Verified 10/18/24 11:25
oxaliplatin Allergy Unknown Verified 10/18/24 11:25
Sulfa (Sulfonamide Allergy Hives,rash Verified 10/18/24 11:25
Antibiotics)
COLD UTICARIA Allergy Unknown Uncoded 10/18/24 11:25
KEFLEX Allergy Unknown Uncoded 10/18/24 11:25
Home Medications
levothyroxine 88 mcg tablet 88 mcg PO DAILY Thyroid 07/30/19
biotin 1 mg capsule 2 mg PO DAILY Supplement ##0 11/02/21
calcium carbonate 500 mg PO BID Supplement ##0 11/02/21
cholecalciferol (vitamin D3) 25 mcg (1,000 unit) tablet 1,000 units PO DAILY Supplement 11/02/21
ascorbic acid (vitamin C) 1,000 mg tablet (Vitamin C) 1 g PO DAILY 10/18/24
fexofenadine 180 mg tablet 180 mg PO HS 10/18/24
ibuprofen 200 mg tablet (Advil) 400 mg PO Q6H 10/18/24
ondansetron HCl 8 mg tablet 8 mg PO Q8HPRN PRN nausea 10/18/24
oxycodone 5 mg tablet 5 mg PO Q6H 10/18/24
therapeutic multivitamin 1 tab PO DAILY 10/18/24
Review of Systems
-
History Source: Patient
A 12 point ROS was completed and negative except as noted: Yes
Constitutional: Reports No Symptoms
EENT: Reports No Symptoms
Respiratory: Reports See HPI
Cardiac: Reports No Symptoms
Abdomen/GI: Reports No Symptoms
: Reports No Symptoms
Musculoskeletal: Reports No Symptoms
Skin: Reports No Symptoms
Neurological: Reports No Symptoms
Endocrine: Reports No Symptoms
Hematologic/Lymphatic: Reports No Symptoms
Psych: Reports No Symptoms
Physical Exam
Vital Signs
Vital Signs
Temp Pulse Resp BP Pulse Ox
98.5 F 90 20 116/70 97
10/18/24 11:20 10/18/24 15:30 10/18/24 15:30 10/18/24 15:00 10/18/24 15:41
Physical Exam
General: Well Developed, Well Nourished and No Apparent Distress
HEENT: NormoCephalic, Moist mucous membranes and Atraumatic
Respiratory: Clear
Cardiac: S1/S2 and Regular Rhythm; No Murmur or Rub
GI: Soft, Non Tender, Non Distended and Normal Bowel Sounds; No Organomegaly
Rectal: Deferred by Provider
Musculoskeletal: No Clubbing, No Cyanosis and No Edema
Skin: No Rash
Neuro: Nonfocal/grossly intact
Laboratory Results
-
10/18/24 11:32
10/18/24 11:32
Laboratory Results
Total Bilirubin 0.6 mg/dl (0.2-1.3) 10/18/24 11:32
AST 111 U/L (14-36) H 10/18/24 11:32
ALT 83 U/L (0-35) H 10/18/24 11:32
Alkaline Phosphatase 332 U/L (38-126) H 10/18/24 11:32
Data Reviewed
-
Lab Data: Labs Reviewed by me
Old Records: Reviewed
Impression/Plan
-
IMPRESSION:
PLAN:
# Bilateral pneumonia in immunocompromised patient
# Moderate bilateral pleural effusions secondary to pneumonia/lung metastases
-Blood cultures
-COVID and flu pending
-As per chest x-ray
-CT PE shows moderate bilateral pleural effusions
-Check strep antigen, Legionella, sputum culture, MRSA
-IV fluids
-Vancomycin/Levaquin due to Keflex allergy
-IR consulted for thoracentesis
# Transaminitis
-Continue to monitor
Stage IV pancreatic cancer with lung metastases
-On chemotherapy
-Continue oxycodone, ibuprofen
Chronic bronchiectasis
Papillary thyroid cancer status post thyroidectomy/GAMBOA
-Continue levothyroxine
Mild intermittent asthma
-Continue DuoNebs
Osteopenia
Melanoma in 2005
Mitral valve prolapse
Full code
DVT prophylaxis�heparin
Regular diet
[2024-10-18 17:18] LABS: COVID-19 Antigen Negative (Negative)
[2024-10-18 17:37] LABS: Body Fluid pH 7.48
[2024-10-18 17:40] LABS: Body Fluid Mononuclear 81.5 %; Body Fluid Polymorphonuclear 18.5 %; Body Fluid WBC 228 /CUMM
[2024-10-18 17:43] LABS: Body Fluid Second Tech EYM
[2024-10-18 17:56] LABS: Body Fluid Glucose 111 mg/dl; Body Fluid LDH 451 U/L; Body Fluid Triglycerides 63 mg/dl
[2024-10-18] MEDS: ZOFRAN 8 MG PO (18:31)
[2024-10-18 19:17] LABS: Total Protein 6.1 g/dl (6.3-8.2)
[2024-10-18 20:08] LABS: Body Fluid Amylase < 30 U/L
[2024-10-18] MEDS: ROXICODONE 2.5 MG PO (20:12)
[2024-10-18] MEDS: MOTRIN 400 MG PO (20:14)
[2024-10-18] MEDS: VANCOCIN 275 MG IV (20:17)
[2024-10-18] MEDS: NSS 1000 IV (20:18)
[2024-10-18] MEDS: ROXICODONE PO (20:27)
--- NOTE | 2024-10-18 20:29 | PHA.VAN.IN ---
Assessment
- Assessment
Renal Function: Appears elevated from baseline (10/08/24 BASELINE SCR: 0.7)
Concomitant Antimicrobials: LEVAQUIN
- Previous Dosing Experience
Previous Regimen: NONE
Plan
- Plan
Initial / Loading Dose: 1250MG
Maintenance Regimen: DOSING BY RANDOM LEVELS
Monitoring: RANDOM VANCOMYCIN LEVEL 10/19/24 AM
Pharmacokinetics Vancomycin I
- -
Patient Age: 74
Patient Sex: Female
Vancomycin Day #: 1
Indication: Pulmonary/Respiratory
Requesting Provider: JELLY
Pertinent Antimicrobial Allergies:
Allergies
Sulfa (Sulfonamide Antibiotics) Allergy (Verified 10/18/24 11:25)
Hives,rash
cephalexin [From Keflex] Allergy (Verified 10/18/24 19:55)
Unknown
Height / Weight:
Height 5 ft 5 in
Actual Weight 53.4 kg
Pertinent Past Medical History: PANCREATIC CA WITH METS
- Vital Signs / Lab Results
Temp Pulse Resp BP Pulse Ox
98.7 F 86 18 112/65 96
10/18/24 16:08 10/18/24 18:00 10/18/24 18:00 10/18/24 18:00 10/18/24 18:00
Lab Results - Hematology
10/18/24
11:32
WBC 6.0
Lab Results - Chemistry
10/18/24
11:32
BUN 20 H
Creatinine 1.0
Albumin 4.3
Microbiology Results
10/18/24 15:39 Influenza Types A & B (YAA) - Final
Nasal Swab Negative for Influenza A & B, NAAT
Negative results must be combined with clinical observations
and patient history.
Nucleic Acid Amplification test (NAAT)performed on the
[employer] platform.
[2024-10-18] MEDS: OSCAL CAL 500 500 MG PO (21:32)
[2024-10-18] MEDS: HEPARIN 5000 UNITS SC (21:32)
[2024-10-18] MEDS: MOTRIN PO (21:32)
[2024-10-18] MEDS: CLARITIN 10 MG PO (21:32)
[2024-10-19] VITALS (11 sets, daily range): BP systolic 106–126; BP diastolic 64–79
[2024-10-19] MEDS: MOTRIN 400 MG PO ×4 (02:07→22:11)
[2024-10-19] MEDS: ROXICODONE 2.5 MG PO ×4 (02:07→22:11)
[2024-10-19] MEDS: NSS 1000 IV ×2 (06:27→18:26)
[2024-10-19 06:57] LABS: % Basophils 0.3 % (0-2); % Eosinophils 0.9 % (0-6); % Immature Granulocytes 1.4 % (0-0.5); % Lymphocytes 17.6 % (20.5-51.1); % Neutrophils 69.8 % (42.2-75.2); Absolute Eosinophils 0.1 10^3/uL (0-0.7); Absolute Immature Granulocytes 0.1 10^3/uL (0-0.05); Absolute Lymphocytes 1.1 10^3/uL (1.2-3.4); Absolute Monocytes 0.7 10^3/uL (0.1-0.6); Absolute Neutrophils 4.5 10^3/uL (1.4-6.5); Hematocrit 27.1 % (37.0-47.0); Hemoglobin 9.6 g/dL (12.0-16.0); Mean Corp Hgb Conc. 35.4 g/dL (33.0-37.0); Mean Corpuscular Hgb 32.7 pg (27.0-31.0); Mean Corpuscular Volume 92.2 fL (81.0-99.0); Mean Platelet Volume 11.9 fL (7.4-10.4); Nucleated Red Blood Cells % 0.6 %; Platelet Count 111 10^3/uL (130-400); Red Blood Cell Count 2.94 10^6/uL (4.20-5.40); Red Cell Dist. Width 16.2 % (11.5-14.5); White Blood Cell Count 6.5 10^3/uL (4.8-10.8)
[2024-10-19 07:34] LABS: ALT (SGPT) 66 U/L (0-35); AST (SGOT) 98 U/L (14-36); Albumin 2.9 g/dl (3.5-5.0); Alkaline Phosphatase 248 U/L (38-126); Blood Urea Nitrogen 16 mg/dl (7-17); Calcium 8.3 mg/dl (8.4-10.2); Carbon Dioxide 25 mmol/L (22-30); Chloride 100 mmol/L (98-107); Estimated Creatinine Clearance 51 ml/min; Glucose 87 mg/dl (70-99); Potassium 4.5 mmol/L (3.5-5.1); Sodium 131 mmol/L (135-145); Total Bilirubin 0.4 mg/dl (0.2-1.3); Total Protein 5.1 g/dl (6.3-8.2); eGFR > 60.00
[2024-10-19] MEDS: SYNTHROID 88 MCG PO (07:36)
[2024-10-19] MEDS: THERAGRAN 1 TABLET PO (09:20)
[2024-10-19] MEDS: VITAMIN D3 (cholecalciferol) 25 MCG PO (09:20)
[2024-10-19] MEDS: OSCAL CAL 500 500 MG PO (09:20)
[2024-10-19] MEDS: VITAMIN C 1000 MG PO (09:20)
[2024-10-19] MEDS: HEPARIN 5000 UNITS SC ×2 (09:21→21:18)
--- NOTE | 2024-10-19 09:30 | PHA.VAN.FU ---
Vancomycin Assessment / Plan
- Assessment
Renal Function: SCR Decreasing
WBC's are: WNL
In the past 24 hrs, patient has been: Afebrile
Concomitant Antimicrobials: levofloxacin
- Assessment - Therapeutic Drug Monitoring
Random Level: 10 - drawn ~10H after initial dose of 1250mg
- Dosing Plan
Adjust Regimen to: Vanc 1000mg Q24H - first dose now then 0600
New Regimen Predicts: AUC (549), Peak (37.2), Trough (12.7)
Dosing Comments: utilized IBW for dosing weight
Patients may have higher clearance than predicted as patients with cancer may have increased clearance (Pharmacotherapy. 2019;40(27):4107-5650)
- Monitoring Plan
No level(s) ordered at this time: consider levels in next few days
MRSA Screen: Ordered per protocol
- Follow Up
Pharmacy will continue to follow.
Vancomycin Follow UP
- -
Patient Age: 74
Patient Sex: Female
Vancomycin Day #: 2
Indication: Pulmonary/Respiratory
Requesting Provider: Dr. Capone
Pertinent Antimicrobial Allergies:
Sulfa (Sulfonamide Antibiotics) - Hives,rash
cephalexin - Unknown
Height / Weight:
Height 5 ft 5 in
Actual Weight 53.4 kg
IBW in k
Pertinent Past Medical History: BMI ~19.6, stage IV pancreatic cancer
- Vital Signs / Lab Results
Temp Pulse Resp BP Pulse Ox
98.2 F 84 15 110/75 95
10/19/24 09:26 10/19/24 08:30 10/19/24 08:30 10/19/24 08:00 10/19/24 09:26
Lab Results - Hematology
10/18/24 10/19/24
11:32 06:31
WBC 6.0 6.5
Lab Results - Chemistry
10/18/24 10/19/24
11:32 06:31
BUN 20 H 16
Creatinine 1.0 0.8
Estimated Creat Clear 51
Albumin 4.3 2.9 L
Microbiology Results
10/18/24 15:39 Influenza Types A & B (YAA) - Final
Nasal Swab Negative for Influenza A & B, NAAT
Negative results must be combined with clinical observations
and patient history.
Nucleic Acid Amplification test (NAAT)performed on the
[employer] platform.
Therapeutic Drug Monitoring
Random Vancomycin 10.0 ug/ml 10/19/24 06:31
[2024-10-19] MEDS: VANCOCIN 200 IV (11:29)
--- NOTE | 2024-10-19 12:00 | PTCARENOTE ---
Assumed care of patient [id number].
Patient is pleasant, cooperative and AAOX4. Here with PNA and pleural effusions s/p R Thoracentesis on 10/18. Receiving IV fluids and IV ABX. Lungs diminished to auscultation, presently on 2L NC. Attempted to wean off oxygen and patient was 88% on RA.
Placed back on 2L NC. Ambulatory with staff assist. Skin intact.
[2024-10-19] MEDS: ZOFRAN 8 MG PO (13:11)
--- NOTE | 2024-10-19 14:42 | W.PN.HOSP.TC ---
Today's Communication/Plan
-
Continue oxygen supplementation.
Left thoracentesis if possible.
Pulmonology consultation.
Expand antibiotics with addition of Zosyn.
Check procalcitonin level
Assessment / Plan
Assessment / Plan
Impression:
Acute hypoxic respiratory failure.
Bilateral pleural effusions.
Metastatic lymphadenopathy.
Bilateral pneumonia suspected.
Immunocompromise state
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
-On chemotherapy with gemcitabine and Abraxane 2 weeks prior to admission.
Elevated LFT
Protein calorie malnutrition BMI of 19
Other conditions:
Bronchiectasis by history.
History of papillary thyroid cancer status post thyroidectomy and radiation treatment.
Mild intermittent asthma.
History of melanoma removal.
Osteopenia.
Mitral valve prolapse
Plan:
Acute hypoxic respiratory failure.
On exam she is saturating at 85% on room air.
Likely multifactorial and suspect secondary to metastatic lung disease and bilateral pleural effusion, possibly pneumonia.
Continue oxygen supplementation and following below.
No evidence of CHF
Recent echocardiogram within normal limit
CT scan of the chest negative for PE
Bilateral pleural effusion.
Status post right thoracentesis 10/18 900 cc with no evidence of empyema. Gram stain and cultures negative to date
Consult interventional urology for left thoracentesis
Bilateral pneumonia suspected.
COVID/flu negative
Prior history of bronchiectasis.
Afebrile with normal white count, although immunocompromised to recent chemotherapy.
Reports nonproductive cough with minimal hemoptysis prior to presentation.
Check procalcitonin level.
Expand antibiotics: Vancomycin with addition of Zosyn. Hold Levaquin.
Pulmonology evaluation
Consider steroid trial, although with no evidence of bronchospasm on exam
Pancreatic carcinoma
Status post partial pancreas resection.
Status post multiple rounds of chemotherapy including 5-FU regimen, clinical trials, currently on gemcitabine and Abraxane 2 weeks prior to presentation.
Primary oncology Dr. Palacio [facility] [phone], [phone]
Full code.
DVT prophylaxis heparin
Anticipated Discharge: > 48 hours
Subjective/Interval History
-
Date of Service: October 19, 2024
Objective Data
-
Labs:
Laboratory Results
10/19/24
06:31
WBC 6.5
Hgb 9.6 L
Hct 27.1 L
Plt Count 111 L D
Sodium 131 L
Potassium 4.5
Chloride 100
Carbon Dioxide 25
BUN 16
Creatinine 0.8
Glucose 87
Calcium 8.3 L
Total Bilirubin 0.4
AST 98 H
ALT 66 H
Alkaline Phosphatase 248 H
Vital Signs:
Vital Signs
Temp Pulse Resp BP Pulse Ox
98.2 F 90 14 107/69 95
10/19/24 09:26 10/19/24 13:30 10/19/24 13:15 10/19/24 12:00 10/19/24 13:45
I&O
10/18/24 10/19/24 10/20/24
06:59 06:59 06:59
Intake Total 1000 / 1000
Balance 1000 / 1000
Physical Exam
-
General: Well Developed and No Apparent Distress
HEENT: Normocephalic, Atraumatic and Moist Mucous Membranes
Respiratory: Clear to Auscultation
Cardiac: Regular Rhythm and S1/S2; Negative Murmur, Rub or Gallop
GI: Soft, Nontender, Nondistended and Normal Bowel Sounds; Negative Organomegaly
Rectal: Deferred by Provider
Musculoskeletal: No Clubbing, No Cyanosis and No Edema
Skin: Negative Rash
Neuro: Nonfocal/Grossly Intact
--- NOTE | 2024-10-19 14:59 | CON.PUL ---
Consultation
Consultation Request
Date/Time Consultation Requested: 10/19/24-3:30 PM
Date/Time Consultation Performed: 10/19/24-4 PM
Requesting Provider: hospitalist
Performing Provider: , Dr. Persaud
Reason for Consultation: , shortness of breath
Medical History
-
Chief Complaint: , shortness of breath
History of Present Illness:
74-year-old female with history of stage IV pancreatic cancer with metastatic disease to the lung, receiving chemotherapy at [facility] as well as bronchiectasis and papillary thyroid carcinoma status post thyroidectomy presented with shortness
of breath and productive cough, found to have pneumonia-pulmonary consulted for pneumonia and pleural effusion 10/19/24.Patient developed increasing shortness of breath and difficulties taking a deep breath, Currently denies any pleurisy, chest
congestion, adductive cough, abdominal pain, new weakness or swelling.
Past Medical History
Past Medical History: None (. Pancreatic cancer, stage IV/chemotherapy, lung metastases. Bronchiectasis. Papillary thyroid cancer/thyroidectomy/radioactive iodine. Asthma. Osteopenia. Melanoma 2016.)
Social History
Tobacco: Non-smoker
Alcohol: None
Drug: None
Occupational Exposures: No known asbestos exposure
Environmental Exposures: . No known tuberculosis exposure
Family History
Family History: Reviewed & Not Pertinent
Allergies / Home Medications
Allergies
Allergy/AdvReac Type Severity Reaction Status Date / Time
cephalexin [From Keflex] Allergy face Verified 10/19/24 09:46
welts;
tolerates
amoxicillin
latex Allergy hives,rash Verified 10/18/24 11:25
oxaliplatin Allergy Unknown Verified 10/18/24 11:25
Sulfa (Sulfonamide Allergy Hives,rash Verified 10/18/24 11:25
Antibiotics)
COLD UTICARIA Allergy Unknown Uncoded 10/18/24 11:25
Home Medications
�Medication �Instructions �Recorded �Confirmed �Last Taken �Type
levothyroxine 88 mcg tablet 88 mcg PO DAILY Thyroid 07/30/19 10/18/24 11/01/21 History
biotin 1 mg capsule 2 mg PO DAILY Supplement ##0 11/02/21 10/18/24 11/01/21 History
calcium carbonate 500 mg PO BID Supplement ##0 11/02/21 10/18/24 11/01/21 History
cholecalciferol (vitamin D3) 25 1,000 units PO DAILY Supplement 11/02/21 10/18/24 11/01/21 History
mcg (1,000 unit) tablet
ascorbic acid (vitamin C) 1,000 mg 1 g PO DAILY 10/18/24 10/18/24 Unknown History
tablet (Vitamin C)
fexofenadine 180 mg tablet 180 mg PO HS 10/18/24 10/18/24 Unknown History
ibuprofen 200 mg tablet (Advil) 400 mg PO Q6H 10/18/24 10/18/24 Unknown History
ondansetron HCl 8 mg tablet 8 mg PO Q8HPRN PRN nausea 10/18/24 10/18/24 Unknown History
oxycodone 5 mg tablet 5 mg PO Q6H 10/18/24 10/18/24 Unknown History
therapeutic multivitamin 1 tab PO DAILY 10/18/24 10/18/24 Unknown History
Review of Systems
-
Unable to Obtain full review of systems at this time due to: Other (per HPI)
Vitals / Labs / Diagnostic Testing
Vital Signs
Temp Pulse Resp BP Pulse Ox
98.2 F 90 14 107/69 95
10/19/24 09:26 10/19/24 13:30 10/19/24 13:15 10/19/24 12:00 10/19/24 13:45
Lab Data
10/19/24 06:31
10/19/24 06:31
Microbiology
10/18/24 16:59 Pleural Fluid Body Fluid Culture - Preliminary
No Growth After 18-24 Hours
10/18/24 16:59 Pleural Fluid Gram Stain - Preliminary
10/18/24 15:39 Nasal Swab Influenza Types A & B (YAA) - Final
Negative for Influenza A & B, NAAT
Negative results must be combined with clinical observations
and patient history.
Nucleic Acid Amplification test (NAAT)performed on the
[employer] platform.
Diagnostic Testing:
Physical Exam
-
Exam:
HEENT atraumatic normocephalic and anicteric. Heart was regular without murmur. Chest was clear without wheezes or crackles. Integument without rashes or icterus. Neurologic exam without weakness or numbness. Abdomen soft and nondistended.
The patient had no JVD, cyanosis, clubbing or edema.
Assessment
-
74-year-old female with history of stage IV pancreatic cancer with metastatic disease to the lung, receiving chemotherapy at [place] as well as bronchiectasis and papillary thyroid carcinoma status post thyroidectomy presented with shortness
of breath and productive cough, found to have pneumonia-pulmonary consulted for pneumonia and pleural effusion 10/19/24.
Bilateral community acquired pneumonia..
Bilateral pleural effusions.
Status post right thoracentesis 10/18/24--900 mL straw-colored fluid, cultures negative, no growth, cytology pending
Left thoracentesis 10/19/24--Ultrasound not enough fluid for thoracentesis
Immunocompromised.
Pancreatic cancer with metastatic disease to the lung and liver.
Transaminitis.
Protein calorie malnutrition.
Jcqjhx-mrzirdkzuq-chibtbpxkr 9.6.
Thrombocytopenia-platelet 111.
Mild hyponatremia
Conditions present prior to admission:
Pancreatic cancer, stage IV/chemotherapy, lung metastases.
Bronchiectasis. P
Papillary thyroid cancer/thyroidectomy/radioactive iodine.
Asthma.
Osteopenia.
Melanoma 2016.
Plan
Respiratory decompensation likely related to underlying lung disease with pneumonia and pleural effusions-No known previous pulmonary disease, now has Possible pulmonary mets
Supplemental oxygen as needed.
High flow oxygen if needed.
Aspiration precautions.
Nebulizers if needed-currently not bronchospastic
Incentive spirometry
Mucus clearing devices
Mucolytic's as needed.
Check cultures.
Influenza negative
COVID negative
Sputum culture-pending
Check urine Legionella and streptococcal antigen
Empiric antibiotics-empirically on vancomycin and Zosyn-Consider adding atypical coverage
Bilateral pleural effusions status post right thoracentesis-cultures negative, cytology pending.
Left thoracentesis, possible if there is enough fluid-pending, check cytology.
Monitor hemoglobin.
Transfuse as needed.
Follow liver functions.
Replace electrolytes.
DVT prophylaxis-on subcutaneous heparin.
Nutrition especially in light of significant protein calorie malnutrition.
Physical therapy.
Reviewed with at the bedside
Outpatient oncology [id number]-Sx[facility] at [place]-also had opinion from [facility]-has finished a couple phase 1 trials
Studies:
CT chest 10/30/18-4 mm left lower lobe nodule stable compared to CT chest 2013, no acute disease.
CT chest 10/18/2024-pneumonia, no pulmonary embolism, hilar lymphadenopathy and pulmonary nodules consistent with metastatic disease and bilateral pulmonary pleural effusions
Echocardiogram 02/02/24-EF 65-70%, normal diastolic function
Data Reviewed
-
EKG: Report reviewed by me
Radiology: Image personally visualized and interpreted and Report reviewed by me
CT Scan: Image personally visualized and interpreted and Report reviewed by me
Ultrasound: Report reviewed by me
Medical Tests (Nuc Med, Echo etc): Report reviewed by me
Labs: Labs reviewed by me
Old Records: Reviewed
Total Time Spent with Patient (in minutes): 55
[2024-10-19] MEDS: ROXICODONE PO (16:02)
[2024-10-19] MEDS: ZOSYN 50 IV ×2 (16:54→22:15)
[2024-10-19] MEDS: OSCAL CAL 500 PO (18:27)
[2024-10-19 19:56] LABS: Blood Urea Nitrogen 17 mg/dl (7-17); Calcium 8.4 mg/dl (8.4-10.2); Carbon Dioxide 27 mmol/L (22-30); Chloride 98 mmol/L (98-107); Estimated Creatinine Clearance 51 ml/min; Glucose 118 mg/dl (70-99); Magnesium 1.8 mg/dl (1.6-2.3); Potassium 4.5 mmol/L (3.5-5.1); Sodium 131 mmol/L (135-145); eGFR > 60.00
[2024-10-19 20:12] LABS: Procalcitonin 0.13 ng/ml (0.0-0.25)
[2024-10-19] MEDS: VIBRAMYCIN 100 MG PO (21:18)
[2024-10-19] MEDS: MAGNESIUM OXIDE 500 MG PO (21:18)
[2024-10-19] MEDS: CLARITIN 10 MG PO (22:12)
[2024-10-20] VITALS (9 sets, daily range): BP systolic 85–152; BP diastolic 54–95; BMI 20.3
[2024-10-20] MEDS: MOTRIN 400 MG PO ×4 (04:09→21:03)
[2024-10-20] MEDS: NSS 1000 IV (04:09)
[2024-10-20] MEDS: ROXICODONE 2.5 MG PO ×4 (04:10→21:04)
[2024-10-20] MEDS: ZOSYN 50 IV ×2 (04:12→10:23)
[2024-10-20] MEDS: VANCOCIN 200 IV (07:18)
[2024-10-20] MEDS: SYNTHROID 88 MCG PO (07:27)
[2024-10-20] MEDS: THERAGRAN 1 TABLET PO (07:36)
[2024-10-20] MEDS: VIBRAMYCIN 100 MG PO ×2 (07:36→21:03)
[2024-10-20] MEDS: VITAMIN D3 (cholecalciferol) 25 MCG PO (07:37)
[2024-10-20] MEDS: HEPARIN 5000 UNITS SC ×2 (07:37→21:03)
[2024-10-20] MEDS: VITAMIN C 1000 MG PO (08:44)
[2024-10-20] MEDS: OSCAL CAL 500 500 MG PO ×2 (08:44→21:03)
--- NOTE | 2024-10-20 10:15 | PHA.VAN.FU ---
Vancomycin Assessment / Plan
- Assessment
Renal Function: Stable
WBC's are: WNL
In the past 24 hrs, patient has been: Afebrile
Concomitant Antimicrobials: PO doxycyline; pip/tazo
- Dosing Plan
Continue: vancomycin 1000 mg q24h - first dose 10/19
- Monitoring Plan
Monitoring Comments: consider levels after Tuesday AM dose if still on
- Follow Up
Pharmacy will continue to follow.
Vancomycin Follow UP
- -
Patient Age: 74
Patient Sex: Female
Vancomycin Day #: 2
Indication: Pulmonary/Respiratory
Requesting Provider: Dr. Capone
Pertinent Antimicrobial Allergies:
Sulfa (Sulfonamide Antibiotics) - Hives,rash
cephalexin - Unknown
Height / Weight:
Height 5 ft 5 in
Actual Weight 53.4 kg
IBW in k
Pertinent Past Medical History: BMI ~19.6, stage IV pancreatic cancer
- Vital Signs / Lab Results
Temp Pulse Resp BP Pulse Ox
98.1 F 81 15 128/74 95
10/19/24 23:00 10/20/24 07:30 10/20/24 07:30 10/20/24 04:00 10/20/24 07:45
Lab Results - Hematology
10/18/24 10/19/24
11:32 06:31
WBC 6.0 6.5
Lab Results - Chemistry
10/18/24 10/19/24 10/19/24
11:32 06:31 19:33
BUN 20 H 16 17
Creatinine 1.0 0.8 0.8
Estimated Creat Clear 51 51
Albumin 4.3 2.9 L
Microbiology Results
10/19/24 22:36 Legionella Urinary Antigen - Final
Urine Negative for Legionella pneumophila Serogroup 1 antigen.
A negative result does not rule out the possiblity of
Legionella infection due to other serogroups or species of
Legionella. Clinical correlation is recommended.
Streptococcus pneumoniae Antigen (M - Final
Negative for Streptococcus pneumoniae antigen.
A negative result does not exclude infection with
Streptococcus pneumoniae. Clinical correlation is
recommended.
10/18/24 15:39 Blood Culture - Preliminary
Blood/Venous No Growth in 24 hours- Final report to follow
10/18/24 15:53 Blood Culture - Preliminary
Blood/Venous No Growth in 24 hours- Final report to follow
10/18/24 16:59 Body Fluid Culture - Preliminary
Pleural Fluid No Growth After 18-24 Hours
Gram Stain - Preliminary
10/18/24 15:39 Influenza Types A & B (YAA) - Final
Nasal Swab Negative for Influenza A & B, NAAT
Negative results must be combined with clinical observations
and patient history.
Nucleic Acid Amplification test (NAAT)performed on the
[employer] platform.
Therapeutic Drug Monitoring
Random Vancomycin 10.0 ug/ml 10/19/24 06:31
--- NOTE | 2024-10-20 11:03 | W.PN.PUL3 ---
Today's Communication / Plan
-
Repeat CXR for recurrence, path still pending
Complete abx for full course, can de-escalate to single therapy x 5 days
Check proBNP, repeat ECHO--in Afib, cards eval obtained
Can discuss ASEPT placement next week if fluid recurs following >2 taps
Prolonged discussion at bedside with patient and
Assessment
-
74-year-old female with history of stage IV pancreatic cancer with metastatic disease to the lung, receiving chemotherapy at [place] as well as bronchiectasis and papillary thyroid carcinoma status post thyroidectomy presented with shortness
of breath and productive cough, found to have pneumonia-pulmonary consulted for pneumonia and pleural effusion 10/19/24.
Bilateral pleural effusions s/p R thoracentesis 10/18/24--900 mL straw-colored fluid, cultures negative, no growth, cytology pending
Left thoracentesis 10/19/24--Ultrasound not enough fluid for thoracentesis
Immunocompromised
Pancreatic cancer with metastatic disease to the lung and liver.
Transaminitis.
Protein calorie malnutrition.
Egdjnl-dluuqzixkt-btxvatfywk 9.6.
Thrombocytopenia-platelet 111.
Mild hyponatremia
Conditions present prior to admission:
Pancreatic cancer, stage IV/chemotherapy, lung metastases.
Bronchiectasis. P
Papillary thyroid cancer/thyroidectomy/radioactive iodine.
Asthma.
Osteopenia.
Melanoma 2016.
Plan
Respiratory decompensation likely related to underlying lung disease with pneumonia and pleural effusions-No known previous pulmonary disease, now has Possible pulmonary mets
Supplemental oxygen as needed--97% on 2L NC
Aspiration precautions.
Nebulizers if needed-currently not bronchospastic
Incentive spirometry
Mucus clearing devices
Mucolytic's as needed.
Check cultures.
Influenza negative
COVID negative
Body fluid culture neg--pleural
Urine Legionella and streptococcal antigen negative
MRSA negative
Empiric antibiotics-empirically on vancomycin and Zosyn-may de-escalate given data and complete 5 days
Bilateral pleural effusions status post right thoracentesis-cultures negative, cytology pending.
Left thoracentesis, possible if there is enough fluid-pending, check cytology.
Cell count 10/18/24: pH 7.48 - wbc 228 - glu 111 - ldh 451 - serum LDH unable to obtain
Not known if exudate vs transudate/procal negative--can empirically treat with course of abx x 5 days
Check proBNP
Consider repeat ECHO
Afib noted, cards eval
Fluid could be related to underlying cancer, we discussed role of ASEPT
She was noted to have fluid present as far back at Nov
Monitor hemoglobin.
Transfuse as needed.
Follow liver functions.
Replace electrolytes.
DVT prophylaxis-on subcutaneous heparin.
Nutrition especially in light of significant protein calorie malnutrition.
Physical therapy.
Reviewed with at the bedside
Outpatient oncology [id number]-Qjcjcew at [place]-also had opinion from [facility]-has finished a couple phase 1 trials
She remains full code, but notes that she is not sure if she wants to keep doing this
Recommend GO if she decides that she does not wish to keep going
Studies:
CT chest 10/30/18-4 mm left lower lobe nodule stable compared to CT chest 2013, no acute disease.
CT chest 10/18/2024-pneumonia, no pulmonary embolism, hilar lymphadenopathy and pulmonary nodules consistent with metastatic disease and bilateral pulmonary pleural effusions
Echocardiogram 02/02/24-EF 65-70%, normal diastolic function
Total time spent on this consultation/encounter __51__ minutes which includes review of history, physical exam, medications, laboratory data, personal review of imaging, extensive review of outpatient records, discussion with care team and
respiratory therapy.
Subjective Data
-
Date of Service:
Date of Service: October 20, 2024
Chief Complaint: Pulmonary Follow Up
Subjective:
More tachy today and SOB
AFib noted on monitor, more diaphoretic
at bedside
Objective Data
Data Reviewed
Vital Signs / I&O / Oxygen:
Vital Signs
Temp Pulse Resp BP Pulse Ox
98.1 F 81 15 128/74 95
10/19/24 23:00 10/20/24 07:30 10/20/24 07:30 10/20/24 04:00 10/20/24 07:45
Intake and Output
10/19/24 10/20/24 10/21/24
06:59 06:59 06:59
Intake Total 1000 / 1000 50 / 50
Balance 1000 / 1000 50 / 50
SaO2 95
Nasal Cannula flow liters per 2
minute
Physical Exam
General: Comfortable, Chills, Sweats and Other (NAD)
HEENT: Normocephalic and Moist Mucous Membranes
Cardiovascular: S1-S2 and Irregular Rhythm (tachy)
Respiratory: Non-Labored Respirations and Other (decreased BS to mid thorax b/l)
GI: Soft, Non Distended and Non Tender
Neurology: Awake, Alert, Oriented and No Motor Deficits
Skin: Warm, Dry and Good Color
Labs/Micro/Reports
Lab Data
10/19/24 06:31
10/19/24 19:33
Microbiology
10/20/24 19:20 Nose Nasal Screen MRSA (PCR) - Final
MRSA not detected - performed by PCR methodology.
10/19/24 22:36 Urine Legionella Urinary Antigen - Final
Negative for Legionella pneumophila Serogroup 1 antigen.
A negative result does not rule out the possiblity of
Legionella infection due to other serogroups or species of
Legionella. Clinical correlation is recommended.
10/19/24 22:36 Urine Streptococcus pneumoniae Antigen (M - Final
Negative for Streptococcus pneumoniae antigen.
A negative result does not exclude infection with
Streptococcus pneumoniae. Clinical correlation is
recommended.
10/18/24 15:39 Blood/Venous Blood Culture - Preliminary
No Growth in 24 hours- Final report to follow
10/18/24 15:53 Blood/Venous Blood Culture - Preliminary
No Growth in 24 hours- Final report to follow
10/18/24 16:59 Pleural Fluid Body Fluid Culture - Preliminary
No Growth After 18-24 Hours
10/18/24 16:59 Pleural Fluid Gram Stain - Preliminary
10/18/24 15:39 Nasal Swab Influenza Types A & B (YAA) - Final
Negative for Influenza A & B, NAAT
Negative results must be combined with clinical observations
and patient history.
Nucleic Acid Amplification test (NAAT)performed on the
[employer] platform.
--- NOTE | 2024-10-20 12:36 | W.PN.HOSP.TC ---
Addendum entered and electronically signed by Brett Lang MD 10/20/24 13:33:
Twelve-lead ECG with A-fib
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
Following response to Lasix, repeated chest x-ray and natruretic peptide level, start Lopressor 25 mg twice daily. If rate had been not controlled on diet, consider Cardizem drip.
Pending cardiology consult and further discussion on anticoagulation for thromboembolic prophylaxis.
Original Note:
Today's Communication/Plan
-
Chest x-ray with concern for pleural effusion anticoagulation
Narrow antibiotics to Unasyn doxycycline
Twelve-lead ECG
CHF BNP
Trial of Lasix
Continue oxygen supplementation
Assessment / Plan
Assessment / Plan
Impression:
Acute hypoxic respiratory failure.
Bilateral pleural effusions.
Metastatic lymphadenopathy.
Bilateral pneumonia suspected.
Immunocompromise state
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
-On chemotherapy with gemcitabine and Abraxane 2 weeks prior to admission.
Elevated LFT
Protein calorie malnutrition BMI of 19
Other conditions:
Bronchiectasis by history.
History of papillary thyroid cancer status post thyroidectomy and radiation treatment.
Mild intermittent asthma.
History of melanoma removal.
Osteopenia.
Mitral valve prolapse
Plan:
Acute hypoxic respiratory failure.
On exam she is saturating at 85% on room air.
Likely multifactorial and suspect secondary to metastatic lung disease and bilateral pleural effusion, possibly pneumonia.
Continue oxygen supplementation and following below.
No evidence of CHF
Recent echocardiogram within normal limit
CT scan of the chest negative for PE
Bilateral pleural effusion.
Status post right thoracentesis 10/18 900 cc with no evidence of empyema. Gram stain and cultures negative to date
Minimal left pleural effusion not amenable for thoracentesis as per assessment on 10/19
Bilateral pneumonia suspected.
COVID/flu negative
Prior history of bronchiectasis.
Afebrile with normal white count, although immunocompromised to recent chemotherapy.
Reports nonproductive cough with minimal hemoptysis prior to presentation.
Check procalcitonin level. Normal
Narrow antibiotics to Unasyn and doxycycline
Pulmonology evaluation appreciated
Consider steroid trial, although with no evidence of bronchospasm on exam
Tachycardic
Check ECG with concern for A-fib
Patient mentioned history of paroxysmal A-fib in the past.
Check pro CHF BNP
Given persistent tachycardia as well as worsening shortness of breath, trial of Lasix 40 mg IV will be provided
Reported hallucinations
Will continue oxycodone with caution for now. Patient was informed not to take every 6 hours unless required for pain.
Pancreatic carcinoma
Status post partial pancreas resection.
Status post multiple rounds of chemotherapy including 5-FU regimen, clinical trials, currently on gemcitabine and Abraxane 2 weeks prior to presentation.
Primary oncology Dr. Pia LINDSEY [phone], [phone]
Full code.
DVT prophylaxis heparin
Anticipated Discharge: > 48 hours
Subjective/Interval History
-
Date of Service: October 20, 2024
Objective Data
-
Vital Signs:
Vital Signs
Temp Pulse Resp BP Pulse Ox
99.0 F 133 22 152/95 94
10/20/24 11:55 10/20/24 11:55 10/20/24 11:55 10/20/24 11:55 10/20/24 11:55
I&O
10/19/24 10/20/24 10/21/24
06:59 06:59 06:59
Intake Total 1000 / 1000 50 / 50
Balance 1000 / 1000 50 / 50
Physical Exam
-
General: Well Developed and No Apparent Distress
HEENT: Normocephalic, Atraumatic and Moist Mucous Membranes
Respiratory: Clear to Auscultation
Cardiac: Regular Rhythm and S1/S2; Negative Murmur, Rub or Gallop
GI: Soft, Nontender, Nondistended and Normal Bowel Sounds; Negative Organomegaly
Rectal: Deferred by Provider
Musculoskeletal: No Clubbing, No Cyanosis and No Edema
Skin: Negative Rash
Neuro: Nonfocal/Grossly Intact
[2024-10-20] MEDS: LASIX 40 MG IV (12:39)
[2024-10-20] MEDS: LOPRESSOR 25 MG PO ×2 (13:41→21:04)
[2024-10-20] MEDS: UNASYN IV ×2 (14:50→21:02)
[2024-10-20 14:56] LABS: NT-proBNP 237 pg/ml
[2024-10-20] MEDS: ZOFRAN 8 MG PO (15:58)
--- NOTE | 2024-10-20 18:41 | PTCARENOTE ---
recieved pt from ED via stretcher, able to walk from stretcher to bed, spouse at bedside, oriented to her room, VSS charted, call zamora within reach.
[2024-10-20] MEDS: CLARITIN 10 MG PO (21:03)
[2024-10-21] MEDS: UNASYN IV ×4 (03:01→21:00)
[2024-10-21 03:23] VITALS: BP 116/74
[2024-10-21] MEDS: ROXICODONE 2.5 MG PO ×4 (04:23→21:24)
[2024-10-21] MEDS: MOTRIN 400 MG PO ×4 (04:23→21:22)
[2024-10-21] MEDS: SYNTHROID 88 MCG PO (06:14)
[2024-10-21 07:40] VITALS: BP 112/68
[2024-10-21] MEDS: LOPRESSOR 25 MG PO ×2 (08:13→21:00)
[2024-10-21] MEDS: VITAMIN C 1000 MG PO (08:13)
[2024-10-21] MEDS: VIBRAMYCIN 100 MG PO ×2 (08:13→21:00)
[2024-10-21] MEDS: THERAGRAN 1 TABLET PO (08:13)
[2024-10-21] MEDS: OSCAL CAL 500 500 MG PO ×2 (08:14→21:00)
[2024-10-21] MEDS: VITAMIN D3 (cholecalciferol) 25 MCG PO (08:14)
[2024-10-21] MEDS: HEPARIN 5000 UNITS SC ×2 (08:14→21:18)
[2024-10-21 11:35] VITALS: BP 110/65
--- NOTE | 2024-10-21 12:57 | W.PN.CD ---
Today's Communication / Plan
-
Suggest Echo in AM
PRN metoprolol has been used in the past, seems reasonable to use again
Life expectancy too short to consider Eliquis
If path is negative or if pulmonary felt Lasix might help mobilize pleural effusion I have no objection to a trial of Lasix
Impression / Plan
-
PAF, known, follows with Dr. Roberts
- CHADS2-VASc is 2
- PRN metoprolol has been used in the past, seems reasonable to use at discharge
- Life expectancy too short to consider Eliquis
Metastatic pancreatic cancer
- Poor prognosis, she has been told that she only has several months to live
Pleural effusions are suspected to be malignant but path is pending
- If path is negative or if pulmonary felt Lasix might help mobilize pleural effusion I have no objection to a trial of Lasix
Dyspnea
- Suspect from pulmonary effects of metastatic pancreatic cancer
- Doubt heart failure
Physical Exam
Vital Signs/Labs
Vital Signs
Temp Pulse Resp BP Pulse Ox
98.7 F 79 16 110/65 94
10/21/24 11:35 10/21/24 11:35 10/21/24 11:35 10/21/24 11:35 10/21/24 11:35
10/20/24 10/21/24 10/22/24
06:59 06:59 06:59
Actual Weight 55.338 kg
10/19/24 06:31
10/19/24 19:33
Magnesium 1.8 mg/dl (1.6-2.3) 10/19/24 19:33
10/19/24
19:33
Uas-Q-Gdfnzsexedh Pept 237
Data Reviewed
-
Date of Service: October 21, 2024
[2024-10-21] MEDS: ZOFRAN 8 MG PO (13:05)
--- NOTE | 2024-10-21 13:53 | W.PN.HOSP.TC ---
Today's Communication/Plan
-
Continue antibiotics.
Continue beta-kelsy.
Update echocardiogram in a.m.
Monitor for pleural fluid reaccumulation.
Agree with additional diuresis with hope of decreasing rate of possible pleural fluid reaccumulation.
Discussed with patient's at the bedside
Discussed with cardiology and pulmonology.
Assessment / Plan
Assessment / Plan
Impression:
Acute hypoxic respiratory failure.
Bilateral pleural effusions.
Metastatic lymphadenopathy.
Bilateral pneumonia suspected.
Immunocompromise state
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
-On chemotherapy with gemcitabine and Abraxane 2 weeks prior to admission.
Elevated LFT
Protein calorie malnutrition BMI of 19
Other conditions:
Bronchiectasis by history.
History of papillary thyroid cancer status post thyroidectomy and radiation treatment.
Mild intermittent asthma.
History of melanoma removal.
Osteopenia.
Mitral valve prolapse
Plan:
Acute hypoxic respiratory failure.
On exam she is saturating at 85% on room air.
Likely multifactorial and suspect secondary to metastatic lung disease and bilateral pleural effusion, possibly pneumonia.
Continue oxygen supplementation and following below.
No evidence of CHF upon presentation
Recent echocardiogram within normal limit
CT scan of the chest negative for PE
Bilateral pleural effusion.
Status post right thoracentesis 10/18 900 cc with no evidence of empyema. Gram stain and cultures negative to date
Minimal left pleural effusion not amenable for thoracentesis as per assessment on 10/19
Bilateral pneumonia suspected.
COVID/flu negative
Prior history of bronchiectasis.
Afebrile with normal white count, although immunocompromised to recent chemotherapy.
Reports nonproductive cough with minimal hemoptysis prior to presentation.
Check procalcitonin level. Normal
Narrow antibiotics to Unasyn and doxycycline
Pulmonology evaluation appreciated
Consider steroid trial, although with no evidence of bronchospasm on exam
Paroxysmal atrial fibrillation.
Improved and back to normal sinus rhythm with introduction of beta-kelsy. Will continue
Ongoing discussion in terms of anticoagulation. Agree with life expectancy and risk versus benefits.
Reported hallucinations
Will continue oxycodone with caution for now. Patient was informed not to take every 6 hours unless required for pain.
Pancreatic carcinoma
Status post partial pancreas resection.
Status post multiple rounds of chemotherapy including 5-FU regimen, clinical trials, currently on gemcitabine and Abraxane 2 weeks prior to presentation.
Primary oncology Dr. Pia LINDSEY [phone], [phone]
Full code.
DVT prophylaxis heparin
Anticipated Discharge: 24 - 48 hours
Subjective/Interval History
-
Date of Service: October 21, 2024
Objective Data
-
Vital Signs:
Vital Signs
Temp Pulse Resp BP Pulse Ox
98.7 F 79 16 110/65 94
10/21/24 11:35 10/21/24 11:35 10/21/24 11:35 10/21/24 11:35 10/21/24 11:35
I&O
10/20/24 10/21/24 10/22/24
06:59 06:59 06:59
Intake Total 1110 / 1110
Balance 1110 / 1110
Physical Exam
-
General: Well Developed and No Apparent Distress
HEENT: Normocephalic, Atraumatic and Moist Mucous Membranes
Respiratory: Clear to Auscultation
Cardiac: Regular Rhythm and S1/S2; Negative Murmur, Rub or Gallop
GI: Soft, Nontender, Nondistended and Normal Bowel Sounds; Negative Organomegaly
Rectal: Deferred by Provider
Musculoskeletal: No Clubbing, No Cyanosis and No Edema
Skin: Negative Rash
Neuro: Nonfocal/Grossly Intact
--- NOTE | 2024-10-21 14:33 | W.PN.PUL3 ---
Today's Communication / Plan
-
CXR from 10/20 showing reaccumulation, but she had significant UO from lasix
Trial another dose today, cards to see
Repeat CXR in AM, if fluid remains can arrange for repeat Thora (only had 1 so far on R)
We have discussed ASEPT--would be indicated if she recurs again following second thora attempt
Reviewed plan of care with patient
Assessment
-
74-year-old female with history of stage IV pancreatic cancer with metastatic disease to the lung, receiving chemotherapy at [place] as well as bronchiectasis and papillary thyroid carcinoma status post thyroidectomy presented with shortness
of breath and productive cough, found to have pneumonia-pulmonary consulted for pneumonia and pleural effusion 10/19/24.
Bilateral pleural effusions s/p R thoracentesis 10/18/24--900 mL straw-colored fluid, cultures negative, no growth, cytology pending
Left thoracentesis 10/19/24--Ultrasound not enough fluid for thoracentesis
Immunocompromised
Pancreatic cancer with metastatic disease to the lung and liver.
Transaminitis.
Protein calorie malnutrition.
Pszhtp-qltaobvyun-eijucktmcw 9.6.
Thrombocytopenia-platelet 111.
Mild hyponatremia
Conditions present prior to admission:
Pancreatic cancer, stage IV/chemotherapy, lung metastases.
Bronchiectasis. P
Papillary thyroid cancer/thyroidectomy/radioactive iodine.
Asthma.
Osteopenia.
Melanoma 2016.
Plan
Respiratory decompensation likely related to underlying lung disease with pneumonia and pleural effusions-No known previous pulmonary disease, now has Possible pulmonary mets
Supplemental oxygen as needed--97% on 2L NC--this could be weaned off
Aspiration precautions.
Nebulizers if needed-currently not bronchospastic
Incentive spirometry
Mucus clearing devices
Mucolytic's as needed.
Check cultures.
Influenza negative
COVID negative
Body fluid culture neg--pleural
Urine Legionella and streptococcal antigen negative
MRSA negative
Empiric antibiotics-empirically on vancomycin and Zosyn-may de-escalate given data and complete 5 days
Agree with unasyn coverage x 5 days
Bilateral pleural effusions status post right thoracentesis-cultures negative, cytology pending.
Left thoracentesis, possible if there is enough fluid-pending, check cytology.
Cell count 10/18/24: pH 7.48 - wbc 228 - glu 111 - ldh 451 - serum LDH unable to obtain (hemolyzed x 3; inconclusive due to lack of serum comparison)
Not known if exudate vs transudate/procal negative--can empirically treat with course of abx x 5 days
Repeat CXR does show rapid return of fluid
We discussed role of ASEPT if fluid recurs after thora x 2
Repeat CXR in AM for assessment
Check proBNP--237
Consider repeat ECHO
Afib noted, cards eval
Fluid could be related to underlying cancer, we discussed role of ASEPT
She was noted to have fluid present as far back at Nov
Lasix trial again with plan to repeat CXR in AM
Monitor hemoglobin.
Transfuse as needed.
Follow liver functions.
Replace electrolytes.
DVT prophylaxis-on subcutaneous heparin.
Nutrition especially in light of significant protein calorie malnutrition.
Physical therapy.
Reviewed with at the bedside
Outpatient oncology [id number] at [place]/[facility]-also had opinion from [facility]-has finished a couple phase 1 trials
She remains full code, but notes that she is not sure if she wants to keep doing this
Recommend GOC if she decides that she does not wish to keep going
Studies:
CT chest 10/30/18-4 mm left lower lobe nodule stable compared to CT chest 2013, no acute disease.
CT chest 10/18/2024-pneumonia, no pulmonary embolism, hilar lymphadenopathy and pulmonary nodules consistent with metastatic disease and bilateral pulmonary pleural effusions
Echocardiogram 02/02/24-EF 65-70%, normal diastolic function
Total time spent on this consultation/encounter __51__ minutes which includes review of history, physical exam, medications, laboratory data, personal review of imaging, extensive review of outpatient records, discussion with care team and
respiratory therapy.
Subjective Data
-
Date of Service:
Date of Service: October 21, 2024
Chief Complaint: Pulmonary Follow Up
Subjective:
Better today, no new complaints
Objective Data
Data Reviewed
Vital Signs / I&O / Oxygen:
Vital Signs
Temp Pulse Resp BP Pulse Ox
98.7 F 79 16 110/65 94
10/21/24 11:35 10/21/24 11:35 10/21/24 11:35 10/21/24 11:35 10/21/24 11:35
Intake and Output
10/20/24 10/21/24 10/22/24
06:59 06:59 06:59
Intake Total 1110 / 1110
Balance 1110 / 1110
SaO2 94
Nasal Cannula flow liters per 2
minute
Physical Exam
General: Comfortable, Chills, Sweats and Other (NAD)
HEENT: Normocephalic and Moist Mucous Membranes
Cardiovascular: S1-S2 and Irregular Rhythm (tachy)
Respiratory: Non-Labored Respirations and Other (decreased BS to mid thorax b/l)
GI: Soft, Non Distended and Non Tender
Neurology: Awake, Alert, Oriented and No Motor Deficits
Skin: Warm, Dry and Good Color
Labs/Micro/Reports
Lab Data
10/19/24 06:31
10/19/24 19:33
Microbiology
10/18/24 16:59 Pleural Fluid Body Fluid Culture - Final
No Growth After 72 Hours
10/18/24 16:59 Pleural Fluid Gram Stain - Final
10/18/24 15:39 Blood/Venous Blood Culture - Preliminary
No Growth in 48 hours- Final report to follow
10/18/24 15:53 Blood/Venous Blood Culture - Preliminary
No Growth in 48 hours- Final report to follow
10/20/24 19:20 Nose Nasal Screen MRSA (PCR) - Final
MRSA not detected - performed by PCR methodology.
10/19/24 22:36 Urine Legionella Urinary Antigen - Final
Negative for Legionella pneumophila Serogroup 1 antigen.
A negative result does not rule out the possiblity of
Legionella infection due to other serogroups or species of
Legionella. Clinical correlation is recommended.
10/19/24 22:36 Urine Streptococcus pneumoniae Antigen (M - Final
Negative for Streptococcus pneumoniae antigen.
A negative result does not exclude infection with
Streptococcus pneumoniae. Clinical correlation is
recommended.
10/18/24 15:39 Nasal Swab Influenza Types A & B (YAA) - Final
Negative for Influenza A & B, NAAT
Negative results must be combined with clinical observations
and patient history.
Nucleic Acid Amplification test (NAAT)performed on the
[employer] platform.
[2024-10-21] MEDS: LASIX 40 MG IV (14:45)
[2024-10-21 15:00] VITALS: BP 107/63
[2024-10-21 19:19] VITALS: BP 116/75
[2024-10-21] MEDS: CLARITIN 10 MG PO (21:21)
[2024-10-21 23:25] VITALS: BP 126/71
[2024-10-22] VITALS (8 sets, daily range): BP systolic 93–139; BP diastolic 60–80
[2024-10-22] MEDS: UNASYN IV ×4 (02:23→20:57)
[2024-10-22] MEDS: MOTRIN 400 MG PO ×4 (04:00→22:21)
[2024-10-22] MEDS: ROXICODONE 2.5 MG PO ×4 (04:33→22:21)
[2024-10-22] MEDS: SYNTHROID 88 MCG PO (04:34)
[2024-10-22 06:28] LABS: Hematocrit 28.7 % (37.0-47.0); Hemoglobin 10.1 g/dL (12.0-16.0); Mean Corp Hgb Conc. 35.2 g/dL (33.0-37.0); Mean Corpuscular Hgb 32.3 pg (27.0-31.0); Mean Corpuscular Volume 91.7 fL (81.0-99.0); Platelet Count 183 10^3/uL (130-400); Red Blood Cell Count 3.13 10^6/uL (4.20-5.40)
[2024-10-22 06:44] LABS: Blood Urea Nitrogen 22 mg/dl (7-17); Calcium 9.4 mg/dl (8.4-10.2); Carbon Dioxide 28 mmol/L (22-30); Chloride 98 mmol/L (98-107); Estimated Creatinine Clearance 39 ml/min; Glucose 92 mg/dl (70-99); Potassium 3.6 mmol/L (3.5-5.1); Sodium 132 mmol/L (135-145)
[2024-10-22 08:08] LABS: Absolute Neutrophils -Man Diff 6.6 10^3/uL (1.4-6.5); Band Neutrophils 3 % (0-3); Lymphocytes 16 % (20-51); Segmented Neutrophils 52 % (42-75)
--- NOTE | 2024-10-22 08:08 | W.PN.PUL3 ---
Today's Communication / Plan
-
CXR from 10/20 showing reaccumulation, but she had significant UO from lasix
Recurrent right-sided effusion is likely malignant
Recommend indwelling pleural catheter but she wishes to think about this first
Consider right-sided thoracentesis in the meantime if her SOB worsens
Repeat CXR tomorrow morning to continue trending her right-sided pleural effusion
Continue with supplemental O2 and wean as tolerated to keep SpO2 >90%
Reviewed plan of care with patient
Assessment
-
74-year-old female with history of stage IV pancreatic cancer with metastatic disease to the lung, receiving chemotherapy at [place] as well as bronchiectasis and papillary thyroid carcinoma status post thyroidectomy presented with shortness
of breath and productive cough, found to have pneumonia-pulmonary consulted for pneumonia and pleural effusion 10/19/24.
Bilateral pleural effusions s/p R thoracentesis 10/18/24--900 mL straw-colored exudative fluid, cultures negative with NGTD, cytology pending
Left thoracentesis 10/19/24--Ultrasound not enough fluid for thoracentesis
Immunocompromised
Pancreatic cancer with metastatic disease to the lung and liver.
Transaminitis.
Protein calorie malnutrition.
Fyqjox-caeakmzsmo-iyjxculuio 9.6.
Thrombocytopenia- now resolved
Mild hyponatremia
Conditions present prior to admission:
Pancreatic cancer, stage IV/chemotherapy, lung metastases.
Bronchiectasis. P
Papillary thyroid cancer/thyroidectomy/radioactive iodine.
Asthma.
Osteopenia.
Melanoma 2016.
Plan
Respiratory decompensation likely related to underlying lung disease with pneumonia and pleural effusions-No known previous pulmonary disease, now has suspected pulmonary mets
Supplemental oxygen as needed--97% on 2L NC--this could be weaned off as tolerated while keeping SpO2 >90%
Aspiration precautions.
Nebulizers if needed-currently not bronchospastic
Incentive spirometry
Mucus clearing devices
Mucolytics as needed.
Check cultures.
Influenza negative
COVID negative
Pleural fluid culture shows NGTD
Urine Legionella and streptococcal antigen negative
MRSA negative
Empiric antibiotics- s/p IV vancomycin from 10/18 - 10/20 and s/p Zosyn 10/19 - 10/20; currently on Unasyn (started 10/20) and Doxy (started 10/19)
complete 5-7 days assuming she continues to clinically improve and remains afebrile for 48 hours prior to stopping antibiotics
Bilateral pleural effusions status post right thoracentesis-cultures negative, cytology pending.
Left thoracentesis not possible given small pocket
Cell count 10/18/24: pH 7.48 - wbc 228 - glu 111 - ldh 451 - serum LDH unable to obtain (hemolyzed x 3; inconclusive due to lack of serum comparison)
Likely exudative give pleural fluid LDH is 451
Repeat CXR does show rapid return of fluid
We discussed role of ASEPT/PleurX and pt wants to think about this
Can always repeat thoracentesis on the right side if she continues to not be sure about Pleurx catheter
Check proBNP--237 on 10/19/2024
Echo performed today - follow up results
Last echo in January 2024 showing preserved LVEF at 65 to 70% with normal diastolic function, with valvular heart disease with mild MR, mild AI and normal PASP at 22 mmHg
Paroxysmal Afib noted, cards eval
Fluid likely related to underlying cancer, we discussed role of ASEPT
She was noted to have fluid present as far back at Nov
s/p trial of lasix on 10/20 + 10/21 - would not recommend additional lasix as fluid is likley due to malignancy
Monitor hemoglobin.
Transfuse as needed to keep Hb>7g/dL; keep plt>20k
Follow liver functions.
Replace electrolytes.
DVT prophylaxis-on subcutaneous heparin.
Nutrition especially in light of significant protein calorie malnutrition.
Physical therapy.
Reviewed with , Magen, at the bedside
Outpatient oncology [id number] at [place]-also had opinion from [facility]-has finished a couple phase 1 trials
She remains full code, but notes that she is not sure if she wants to keep doing this or continue chemotherapy despite the being hopeful that she will feel well enough to continue fighting
Recommend GOC if she decides that she does not wish to keep going
Studies:
CT chest 10/30/18-4 mm left lower lobe nodule stable compared to CT chest 2013, no acute disease.
CT chest 10/18/2024-pneumonia, no pulmonary embolism, hilar lymphadenopathy and pulmonary nodules consistent with metastatic disease and bilateral pulmonary pleural effusions
Echocardiogram 02/02/24-EF 65-70%, normal diastolic function
Total time spent today was 38 minutes for this encounter. Time includes reviewing laboratory test/imaging results, reviewing pertinent medical records, obtaining and reviewing medical history, performing an appropriate exam, ordering medications,
tests and procedures. Time also includes documentation of this encounter, coordinating patient care and communicating with other healthcare professionals. Total time does not include separately billed tests performed on this date of service.
Subjective Data
-
Date of Service:
Date of Service: October 22, 2024
Chief Complaint: Pulmonary Follow Up
Subjective:
Seen and evaluated this morning. Spoke at bedside to the patient's , Magen, and answered all of his questions. Patient is currently on 2 L/min and breathing comfortably at rest but still short of breath when exerts herself. She feels like
her breathing is worse today. No acute events reported from overnight. She is not sure if she wants to continue with chemotherapy once she is discharged. Also not sure if she wants the ASEPT/Pleurx catheter. She wants to think about it. She
currently denies chest pain, COSME, abdominal pain, nausea, vomiting, fevers or chills, although she does feel like there is a 'tube' around her upper belly.
Review of Systems
General: Other (Negative unless mentioned above)
Objective Data
Data Reviewed
Vital Signs / I&O / Oxygen:
Vital Signs
Temp Pulse Resp BP Pulse Ox
98.4 F 82 18 117/73 92
10/22/24 03:21 10/22/24 03:21 10/22/24 03:21 10/22/24 03:21 10/22/24 03:21
Intake and Output
10/21/24 10/22/24 10/23/24
06:59 06:59 06:59
Intake Total 1110 / 1110 1490 / 1490
Balance 1110 / 1110 1490 / 1490
SaO2 92
Nasal Cannula flow liters per 2
minute
Physical Exam
General: Respiratory Distress (n), Comfortable, Chills (n), Sweats (n) and Other (NAD)
HEENT: Normocephalic, Anicteric and Moist Mucous Membranes
Cardiovascular: S1-S2 and Peripheral Edema (n)
Respiratory: Wheeze (n), Crackles (Bilateral lungs scattered), Rhonchi (n), Non-Labored Respirations, Stridor (n) and Other (Grossly diminished breath sounds in the right base to rght middle lung field )
GI: Soft, Non Distended, Non Tender and Normal Bowel Sounds
Neurology: AO x 3 and Tremors (n)
Skin: Warm, Dry and Jaundice (n)
Labs/Micro/Reports
Lab Data
10/22/24 05:43
10/22/24 05:43
Microbiology
10/18/24 15:39 Blood/Venous Blood Culture - Preliminary
No Growth in 72 hours- Final report to follow
10/18/24 15:53 Blood/Venous Blood Culture - Preliminary
No Growth in 72 hours- Final report to follow
10/18/24 16:59 Pleural Fluid Body Fluid Culture - Final
No Growth After 72 Hours
10/18/24 16:59 Pleural Fluid Gram Stain - Final
10/20/24 19:20 Nose Nasal Screen MRSA (PCR) - Final
MRSA not detected - performed by PCR methodology.
10/19/24 22:36 Urine Legionella Urinary Antigen - Final
Negative for Legionella pneumophila Serogroup 1 antigen.
A negative result does not rule out the possiblity of
Legionella infection due to other serogroups or species of
Legionella. Clinical correlation is recommended.
10/19/24 22:36 Urine Streptococcus pneumoniae Antigen (M - Final
Negative for Streptococcus pneumoniae antigen.
A negative result does not exclude infection with
Streptococcus pneumoniae. Clinical correlation is
recommended.
[2024-10-22 08:09] LABS: Anisocytosis 1+; Atypical Lymphocytes 1 %; Eosinophils 5 % (0-6); Hypochromasia 1+; Metamyelocytes 3 % (-); Monocytes 20 % (2-9); Normal RBC Morphology No; Nucleated Red Blood Cells 1 (-); Platelets Checked Yes; Polychromasia 1+
[2024-10-22 08:10] LABS: Acanthocytes 1+; Ovalocytes FEW; Schistocytes FEW; Target Cells FEW; Total Cells Counted 100
[2024-10-22] MEDS: VIBRAMYCIN 100 MG PO ×2 (08:41→20:56)
[2024-10-22] MEDS: VITAMIN C 1000 MG PO (08:41)
[2024-10-22] MEDS: THERAGRAN 1 TABLET PO (08:41)
[2024-10-22] MEDS: VITAMIN D3 (cholecalciferol) 25 MCG PO (08:41)
[2024-10-22] MEDS: HEPARIN 5000 UNITS SC ×2 (08:42→20:56)
[2024-10-22] MEDS: OSCAL CAL 500 500 MG PO ×2 (08:42→20:56)
[2024-10-22] MEDS: LOPRESSOR 25 MG PO (08:42)
--- NOTE | 2024-10-22 10:11 | W.PN.CD ---
Today's Communication / Plan
-
Stop metoprolol
start proprandol IR 20 mg q 6hrs PRN palps/AFib
Lasix per pulmonary
Cardiology will sign off
She can see Dr. Roberts as needed
Impression / Plan
-
PAF, known, follows with Dr. Roberts
- CHADS2-VASc is 2
- PRN metoprolol has been used in the past
- Will switch to PRN propranolol as it has quicker onset of action
- Life expectancy too short to consider Eliquis
Metastatic pancreatic cancer
- Poor prognosis, she has been told that she only has several months to live
Pleural effusions are suspected to be malignant but path is pending
- If path is negative or if pulmonary felt Lasix might help mobilize pleural effusion I have no objection to a trial of Lasix
Dyspnea
- Suspect from pulmonary effects of metastatic pancreatic cancer
- Doubt heart failure
Subjective: No CP.
Physical Exam
Vital Signs/Labs
Vital Signs
Temp Pulse Resp BP Pulse Ox
98.4 F 78 18 104/69 96
10/22/24 07:35 10/22/24 07:35 10/22/24 07:35 10/22/24 07:35 10/22/24 09:44
10/21/24 10/22/24 10/23/24
06:59 06:59 06:59
Actual Weight 55.338 kg
10/22/24 05:43
10/22/24 05:43
Magnesium 1.8 mg/dl (1.6-2.3) 10/19/24 19:33
10/19/24
19:33
Cjz-P-Jhqbmpyiurw Pept 237
Physical Exam
Constitutional: No acute distress
EENT: Anicteric
Cardiovascular: Rhythm & rate is regular and Pedal edema is absent
Respiratory: Crackles Absent
GI: Soft and Distention absent
Neuro/Psych: AO x 3
Data Reviewed
-
Date of Service: October 22, 2024
[2024-10-22] MEDS: ZOFRAN 8 MG PO (13:04)
[2024-10-22] MEDS: INDERAL 20 MG PO (14:34)
--- NOTE | 2024-10-22 14:35 | CM ---
Reviewed the chart note and spoke with the patient at the bedside. The patient resides with her spouse in a two story home with two steps to enter. The patient reports no DME/SNF in the past, but has had [facility]. The patient confirmed her
pharmacy of choice is the [facility]. The patient is scheduled for a thoracentesis today. Patient currently on supplemental O2. CM continues to be available to patient/family and is monitoring medical plan for needs at discharge.
Plan: Discharge plans will depend on the patient's progress.
--- NOTE | 2024-10-22 14:49 | W.PN.HOSP.TC ---
Today's Communication/Plan
-
Thoracentesis
Assessment / Plan
Assessment / Plan
Impression:
Acute hypoxic respiratory failure.
Bilateral pleural effusions.
Metastatic lymphadenopathy.
Bilateral pneumonia suspected.
Immunocompromise state
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
-On chemotherapy with gemcitabine and Abraxane 2 weeks prior to admission.
Elevated LFT
Protein calorie malnutrition BMI of 19
Other conditions:
Bronchiectasis by history.
History of papillary thyroid cancer status post thyroidectomy and radiation treatment.
Mild intermittent asthma.
History of melanoma removal.
Osteopenia.
Mitral valve prolapse
Plan:
Acute hypoxic respiratory failure.
On exam she is saturating at 85% on room air.
Likely multifactorial and suspect secondary to metastatic lung disease and bilateral pleural effusion, possibly pneumonia.
Continue oxygen supplementation and following below.
No evidence of CHF upon presentation
Recent echocardiogram within normal limit
CT scan of the chest negative for PE
Bilateral pleural effusion.
Status post right thoracentesis 10/18 900 cc with no evidence of empyema. Gram stain and cultures negative to date
Follow-up chest x-ray suggestive of pleural fluid recannulation of the right
Repeat attempt of thoracentesis on the right on 10/22.
Ongoing discussions in regards to Pleurx placement
Minimal left pleural effusion not amenable for thoracentesis as per assessment on 10/19
Bilateral pneumonia suspected.
COVID/flu negative
Prior history of bronchiectasis.
Afebrile with normal white count, although immunocompromised to recent chemotherapy.
Reports nonproductive cough with minimal hemoptysis prior to presentation.
Check procalcitonin level. Normal
Narrow antibiotics to Unasyn and doxycycline
Pulmonology evaluation appreciated
Consider steroid trial, although with no evidence of bronchospasm on exam
Paroxysmal atrial fibrillation.
Improved and back to normal sinus rhythm with introduction of beta-kelsy. Will continue. Transition to long-acting.
Updated echocardiogram pending
Ongoing discussion in terms of anticoagulation. Agree with life expectancy and risk versus benefits.
Reported hallucinations
Will continue oxycodone with caution for now. Patient was informed not to take every 6 hours unless required for pain.
Pancreatic carcinoma
Status post partial pancreas resection.
Status post multiple rounds of chemotherapy including 5-FU regimen, clinical trials, currently on gemcitabine and Abraxane 2 weeks prior to presentation.
Primary oncology Dr. Palacio [facility] [phone], [phone]
Full code.
DVT prophylaxis heparin
Anticipated Discharge: 24 - 48 hours
Subjective/Interval History
-
Date of Service: October 22, 2024
Objective Data
-
Labs:
Laboratory Results
10/22/24
05:43
WBC 12.0 H
Hgb 10.1 L
Hct 28.7 L
Plt Count 183 D
Sodium 132 L
Potassium 3.6
Chloride 98
Carbon Dioxide 28
BUN 22 H
Creatinine 1.1 H
Glucose 92
Calcium 9.4
Vital Signs:
Vital Signs
Temp Pulse Resp BP Pulse Ox
98.3 F 119 16 121/80 936
10/22/24 14:31 10/22/24 14:34 10/22/24 14:31 10/22/24 14:34 10/22/24 14:31
I&O
10/21/24 10/22/24 10/23/24
06:59 06:59 06:59
Intake Total 1110 / 1110 1490 / 1490
Balance 1110 / 1110 1490 / 1490
Physical Exam
-
General: Well Developed and No Apparent Distress
HEENT: Normocephalic, Atraumatic and Moist Mucous Membranes
Respiratory: Clear to Auscultation
Cardiac: Regular Rhythm and S1/S2; Negative Murmur, Rub or Gallop
GI: Soft, Nontender, Nondistended and Normal Bowel Sounds; Negative Organomegaly
Rectal: Deferred by Provider
Musculoskeletal: No Clubbing, No Cyanosis and No Edema
Skin: Negative Rash
Neuro: Nonfocal/Grossly Intact
--- NOTE | 2024-10-22 14:49 | PTCARENOTE ---
pt to go for thoracentesis. remains on 2L of O2. pt aaox3. when getting ready to get on stretcher pt went into afib. prn added by cardiology this morning for afib/palpitations. prn given and MD made aware. tele strips added to patient chart.
[2024-10-22 15:40] LABS: Body Fluid pH 7.41
[2024-10-22 16:00] LABS: Body Fluid Glucose 104 mg/dl; Body Fluid LDH 376 U/L; Body Fluid Protein 2.8 g/dl
[2024-10-22 16:09] LABS: Body Fluid Mononuclear 95.4 %; Body Fluid Polymorphonuclear 4.6 %; Body Fluid WBC 368 /CUMM
[2024-10-22 16:27] LABS: Body Fluid Second Tech EYM
[2024-10-22] MEDS: CLARITIN 10 MG PO (22:20)
[2024-10-23] MEDS: UNASYN IV ×4 (02:35→20:37)
[2024-10-23 03:30] VITALS: BP 108/66
[2024-10-23] MEDS: MOTRIN 400 MG PO ×4 (04:27→21:59)
[2024-10-23] MEDS: ROXICODONE 2.5 MG PO ×4 (04:27→21:59)
[2024-10-23] MEDS: SYNTHROID 88 MCG PO (06:34)
[2024-10-23 07:30] LABS: Hematocrit 28.9 % (37.0-47.0); Hemoglobin 9.8 g/dL (12.0-16.0); Mean Corp Hgb Conc. 33.9 g/dL (33.0-37.0); Mean Corpuscular Hgb 31.8 pg (27.0-31.0); Mean Corpuscular Volume 93.8 fL (81.0-99.0); Mean Platelet Volume 10.7 fL (7.4-10.4); Platelet Count 240 10^3/uL (130-400); Red Blood Cell Count 3.08 10^6/uL (4.20-5.40); Red Cell Dist. Width 17.5 % (11.5-14.5); White Blood Cell Count 12.4 10^3/uL (4.8-10.8)
--- NOTE | 2024-10-23 07:53 | W.PN.CD ---
Today's Communication / Plan
-
will arrange op f/u echo in 7-10 days
d/w patient s/sx of enlarging effusion
Cardiology will sign off
Impression / Plan
-
PAF, known, follows with Dr. Roberts
- CHADS2-VASc is 2
- PRN metoprolol has been used in the past
-switched to PRN propranolol as it has quicker onset of action
- Life expectancy too short to consider Eliquis
Pericardial effusion:
-new mild to moderate without hd compromise
-suspect malignant effusion
-will arrange close follow up in the next 7-10 days
Metastatic pancreatic cancer
- Poor prognosis, she has been told that she only has several months to live
Pleural effusions are suspected to be malignant but path is pending
-s/p 750cc from right 10/22/23
- If path is negative or if pulmonary felt Lasix might help mobilize pleural effusion I have no objection to a trial of Lasix
Dyspnea
- Suspect from pulmonary effects of metastatic pancreatic cancer
- Doubt heart failure, feeling better after
Subjective: No CP. Breathing feeling a bit better after thoracentesis
Physical Exam
Vital Signs/Labs
Vital Signs
Temp Pulse Resp BP Pulse Ox
98.2 F 79 17 108/66 94
10/23/24 03:30 10/23/24 03:30 10/23/24 03:30 10/23/24 03:30 10/23/24 03:30
10/23/24 05:54
Magnesium 1.8 mg/dl (1.6-2.3) 10/19/24 19:33
10/19/24
19:33
Dvs-K-Vkwwhiisqkz Pept 237
Physical Exam
Constitutional: No acute distress
Cardiovascular: Rhythm & rate is regular, Pedal edema is absent, JVD pressure is normal, Systolic murmur absent and Diastolic murmur absent
Respiratory: Respiratory effort normal, Lungs clear to auscul., Wheeze Absent and Crackles Absent
Neuro/Psych: AO x 3
Data Reviewed
-
Date of Service: October 23, 2024
EKG: Other (sinus)
[2024-10-23 07:55] VITALS: BP 108/70
[2024-10-23 08:24] LABS: ALT (SGPT) 85 U/L (0-35); AST (SGOT) 126 U/L (14-36); Albumin 2.9 g/dl (3.5-5.0); Alkaline Phosphatase 327 U/L (38-126); Blood Urea Nitrogen 28 mg/dl (7-17); Calcium 8.8 mg/dl (8.4-10.2); Carbon Dioxide 29 mmol/L (22-30); Chloride 100 mmol/L (98-107); Estimated Creatinine Clearance 35 ml/min; Glucose 82 mg/dl (70-99); Potassium 3.8 mmol/L (3.5-5.1); Sodium 136 mmol/L (135-145); Total Bilirubin 0.4 mg/dl (0.2-1.3); Total Protein 5.1 g/dl (6.3-8.2); eGFR 47.21
[2024-10-23 08:46] LABS: LDH 1565 U/L (120-246)
[2024-10-23] MEDS: VIBRAMYCIN 100 MG PO ×2 (09:04→20:37)
[2024-10-23] MEDS: HEPARIN 5000 UNITS SC ×2 (09:04→20:37)
[2024-10-23] MEDS: VITAMIN D3 (cholecalciferol) 25 MCG PO (09:04)
[2024-10-23] MEDS: THERAGRAN 1 TABLET PO (09:04)
[2024-10-23] MEDS: OSCAL CAL 500 500 MG PO ×2 (09:04→20:37)
[2024-10-23] MEDS: VITAMIN C 1000 MG PO (09:04)
--- NOTE | 2024-10-23 09:08 | W.PN.PUL3 ---
Today's Communication / Plan
-
s/p R-sided thora yesterday removing 750 cc of hazy ania-colored fluid
Check abd US to eval for ascites as she feels that there is a 'band' around her lower belly
Recurrent right-sided effusion is likely malignant
Repeat echo in 7-10 days as per cardiology; currently no evidence of tamponade so no urgent need to drain
Recommend indwelling pleural catheter but she wishes to think about this first and speak to her oncologist from [place]
Continue with supplemental O2 and wean as tolerated to keep SpO2 >90%
Reviewed plan of care with patient
Assessment
-
74-year-old female with history of stage IV pancreatic cancer with metastatic disease to the lung, receiving chemotherapy at [place]/[facility] as well as bronchiectasis and papillary thyroid carcinoma status post thyroidectomy presented with shortness
of breath and productive cough, found to have pneumonia-pulmonary consulted for pneumonia and pleural effusion 10/19/24.
Bilateral pleural effusions s/p R thoracentesis 10/18/24--900 mL straw-colored exudative fluid, cultures negative with NGTD, cytology pending
Left thoracentesis 10/19/24--Ultrasound not enough fluid for thoracentesis
Right thoracentesis 10/22/2024 - 750cc of hazy, ania colored fluid
Immunocompromised
Small�moderate circumferential pericardial effusion without tamponade - likely malignant pericardial effusion
Pancreatic cancer with metastatic disease to the lung and liver.
Transaminitis likely due to hepatic metastasis
NALINI (baseline creatinine 0.8)
Protein calorie malnutrition.
Ersxob-qkykqtdsxn-jmlrhwkvom 9.6.
Thrombocytopenia- now resolved
Mild hyponatremia
Conditions present prior to admission:
Pancreatic cancer, stage IV/chemotherapy, lung metastases.
Bronchiectasis. P
Papillary thyroid cancer/thyroidectomy/radioactive iodine.
Asthma.
Osteopenia.
Melanoma 2016.
Plan
Respiratory decompensation likely related to underlying lung disease with pneumonia and pleural effusions-No known previous pulmonary disease, now has suspected pulmonary mets
Supplemental oxygen as needed--97% on 2L NC--this could be weaned off as tolerated while keeping SpO2 >90%
Aspiration precautions.
Nebulizers if needed-currently not bronchospastic
Incentive spirometry
Mucus clearing devices
Mucolytics as needed.
Follow up cultures.
Influenza negative
COVID negative
Pleural fluid cultures from 10/18/2024 + 10/22/2024 show NGTD
Urine Legionella and streptococcal antigen negative
Blood cultures from 10/18/2024 show NGTD
MRSA negative
Empiric antibiotics- s/p IV vancomycin from 10/18 - 10/20 and s/p Zosyn 10/19 - 10/20; currently on Unasyn (started 10/20) and Doxy (started 10/19)
complete 5-7 days assuming she continues to clinically improve and remains afebrile for 48 hours prior to stopping antibiotics
Bilateral pleural effusions status post right thoracentesis on 10/18/2024-cultures negative, cytology pending.
Left thoracentesis not possible given small pocket
Cell count 10/18/24: pH 7.48 - wbc 228 - glu 111 - ldh 451 - serum LDH unable to obtain (hemolyzed x 3; inconclusive due to lack of serum comparison)
Likely exudative give pleural fluid LDH is 451
Repeat right-sided thoracentesis done on 10/22/2024 removing 750 cc of hazy, exudative ania-colored fluid. Glucose 104, T protein 2.8, LDH 376; follow-up cytology + cultures
Repeat CXR today shows minimal reaccumulation of right-sided pleural fluid with slight worsening of left-sided pleural effusion
We discussed role of ASEPT/PleurX and pt wants to think about this and discuss this with her private oncologist from [place] (Dr. Arellano)
Check proBNP--237 on 10/19/2024
Echo performed on 10/22/2024 -shows small�moderate circumferential pericardial effusion without evidence of tamponade, with preserved LVEF at 64% without regional WMA, normal RV size and function with no sig valvular Dz
Cardiology recommends repeat echo in 7-10 days to continue monitoring pericardial fluid; if patient has sudden tachycardia, chest pain or worsening SOB then would obtain stat echo to rule out developing tamponade
Last echo in January 2024 showing preserved LVEF at 65 to 70% with normal diastolic function, with valvular heart disease with mild MR, mild AI and normal PASP at 22 mmHg
Paroxysmal Afib noted, cards eval
Fluid likely related to underlying cancer, we discussed role of ASEPT
She was noted to have fluid present as far back at Aug
s/p trial of lasix on 10/20 + 10/21 - would not recommend additional lasix as fluid is likely due to malignancy
Monitor hemoglobin.
Transfuse as needed to keep Hb>7g/dL; keep plt>20k
Follow liver functions, which is likely elevated due to hepatic mets
Check abd US with dopplers to rule out hepatic vein thrombosis and to eval for ascites, iram given her lower abd discomfort
Replace electrolytes
Trend serum creatinine and monitor UOP
DVT prophylaxis-on subcutaneous heparin; would change to LMWH if Cr improves given her active malignancy
Nutrition especially in light of significant protein calorie malnutrition.
Physical therapy.
Reviewed with , Magen, at the bedside
Outpatient oncology fcroda-tn-Cebtmei at [facility]-also had opinion from [facility]-has finished a couple phase 1 trials
She remains full code, but notes that she is not sure if she wants to keep doing this or continue chemotherapy despite the being hopeful that she will feel well enough to continue fighting
Recommend GOC/adjustment of code status if she decides that she does not wish to keep pursuing treatment for her cancer
Studies:
CT chest 10/30/18-4 mm left lower lobe nodule stable compared to CT chest 2013, no acute disease.
CT chest 10/18/2024-pneumonia, no pulmonary embolism, hilar lymphadenopathy and pulmonary nodules consistent with metastatic disease and bilateral pulmonary pleural effusions
Echocardiogram 02/02/24-EF 65-70%, normal diastolic function
Total time spent today was 36 minutes for this encounter. Time includes reviewing laboratory test/imaging results, reviewing pertinent medical records, obtaining and reviewing medical history, performing an appropriate exam, ordering medications,
tests and procedures. Time also includes documentation of this encounter, coordinating patient care and communicating with other healthcare professionals. Total time does not include separately billed tests performed on this date of service.
Subjective Data
-
Date of Service:
Date of Service: October 23, 2024
Chief Complaint: Pulmonary Follow Up
Subjective:
Patient seen and evaluated today at bedside. Had thoracentesis yesterday of the right side removing send 50 cc of hazy, ania-colored fluid. CXR showed improvement in right-sided effusion, and today there still remains a tiny right-sided pleural
effusion with slight worsening of the left-sided pleural effusion. Her is at bedside (Magen) as well as her friend, Madelyn. She is currently on 2 L/min nasal cannula. She did not sleep well overnight as she was being 'bothered a lot.'
Currently denies chest pain, COSME, nausea, fevers or chills.
Review of Systems
General: Other (Negative unless mentioned above)
Objective Data
Data Reviewed
Vital Signs / I&O / Oxygen:
Vital Signs
Temp Pulse Resp BP Pulse Ox
98.3 F 78 17 108/70 97
10/23/24 07:55 10/23/24 07:55 10/23/24 07:55 10/23/24 07:55 10/23/24 10:05
Intake and Output
10/22/24 10/23/24 10/24/24
06:59 06:59 06:59
Intake Total 1490 / 1490 810 / 810
Balance 1490 / 1490 810 / 810
SaO2 97
Nasal Cannula flow liters per 2
minute
Physical Exam
General: Respiratory Distress (n), Comfortable, Chills (n), Sweats (n) and Other (NAD)
HEENT: Normocephalic, Anicteric and Moist Mucous Membranes
Cardiovascular: S1-S2 and Peripheral Edema (n)
Respiratory: Wheeze (n), Crackles (Bilateral lungs scattered), Rhonchi (n), Non-Labored Respirations and Stridor (n)
GI: Soft, Non Distended, Non Tender and Normal Bowel Sounds
Neurology: AO x 3 and Tremors (n)
Skin: Warm, Dry, Jaundice (n) and Bruising (seen along lower abdomen with larger bruise seen on left flank which is non-tender)
Labs/Micro/Reports
Lab Data
10/23/24 05:54
10/23/24 05:54
Microbiology
10/22/24 15:10 Pleural Fluid Gram Stain - Final
10/18/24 15:39 Blood/Venous Blood Culture - Preliminary
No Growth in 4 days- Final report to follow
10/18/24 15:53 Blood/Venous Blood Culture - Preliminary
No Growth in 4 days- Final report to follow
10/18/24 16:59 Pleural Fluid Body Fluid Culture - Final
No Growth After 72 Hours
10/18/24 16:59 Pleural Fluid Gram Stain - Final
10/20/24 19:20 Nose Nasal Screen MRSA (PCR) - Final
MRSA not detected - performed by PCR methodology.
10/19/24 22:36 Urine Legionella Urinary Antigen - Final
Negative for Legionella pneumophila Serogroup 1 antigen.
A negative result does not rule out the possiblity of
Legionella infection due to other serogroups or species of
Legionella. Clinical correlation is recommended.
10/19/24 22:36 Urine Streptococcus pneumoniae Antigen (M - Final
Negative for Streptococcus pneumoniae antigen.
A negative result does not exclude infection with
Streptococcus pneumoniae. Clinical correlation is
recommended.
--- NOTE | 2024-10-23 09:39 | CM ---
Reviewed the chart notes. Patient is s/p ultrasound-guided thoracentesis, yielding 750 cc of hazy ania pleural fluid yesterday. Per nursing, patient requesting to speak with hospice for information. Referral sent via [facility]osp[facility].
CM continues to be available to patient/family and is monitoring medical plan for needs at discharge.
Plan: Discharge plans will depend on patient's progress.
[2024-10-23 10:37] LABS: Absolute Neutrophils -Man Diff 9.5 10^3/uL (1.4-6.5); Band Neutrophils 7 % (0-3); Lymphocytes 7 % (20-51); Monocytes 14 % (2-9); Platelets Checked Yes; Segmented Neutrophils 70 % (42-75)
[2024-10-23 10:38] LABS: Acanthocytes 1+; Anisocytosis 2+; Normal RBC Morphology No
[2024-10-23 10:39] LABS: Ovalocytes 1+; Poikilocytosis 1+; Target Cells Occasional
[2024-10-23 10:40] LABS: Eosinophils 1 % (0-6); Metamyelocytes 1 % (-); Total Cells Counted 100
--- NOTE | 2024-10-23 10:42 | HOSPNOTE ---
Addendum entered by Nati Martinez RN 10/23/24 14:25:
Spoke with patient and spouse about hospice and the palliative care. The patient is leaning towards a pleurex cath placement and then home with and palliative care with since they will do home visits and continue treatment and care with [facility]. I answered all questions and left my card for any further questions. Please reach out if more information is needed. The patient asked to speak to me just to get information.
Original Note:
Referral received will provide information. More information to follow.
[2024-10-23 11:54] VITALS: BP 113/73
[2024-10-23] MEDS: ZOFRAN 8 MG PO (13:48)
--- NOTE | 2024-10-23 15:12 | W.PN.HOSP.TC ---
Today's Communication/Plan
-
Complete 5 to 7 days of antibiotics.
Monitor for pleural fluid reaccumulation.
Outpatient follow-up with cardiology for pericardial effusion/A-fib.
Ongoing goals of care discussion including Pleurx catheter placement
Assessment / Plan
Assessment / Plan
Impression:
Acute hypoxic respiratory failure.
Bilateral pleural effusions.
Metastatic lymphadenopathy.
Bilateral pneumonia suspected.
Immunocompromise state
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
-On chemotherapy with gemcitabine and Abraxane 2 weeks prior to admission.
Elevated LFT
Protein calorie malnutrition BMI of 19
Other conditions:
Bronchiectasis by history.
History of papillary thyroid cancer status post thyroidectomy and radiation treatment.
Mild intermittent asthma.
History of melanoma removal.
Osteopenia.
Mitral valve prolapse
Plan:
Acute hypoxic respiratory failure.
On exam she is saturating at 85% on room air.
Likely multifactorial and suspect secondary to metastatic lung disease and bilateral pleural effusion, possibly pneumonia.
Continue oxygen supplementation and following below.
No evidence of CHF upon presentation
Recent echocardiogram within normal limit
CT scan of the chest negative for PE
Bilateral pleural effusion.
Status post right thoracentesis 10/18 900 cc with no evidence of empyema. Gram stain and cultures negative to date
Follow-up chest x-ray suggestive of pleural fluid recannulation of the right
Repeat right thoracentesis with 700 mL out on 10/22
Ongoing discussions in regards to Pleurx placement
Minimal left pleural effusion not amenable for thoracentesis as per assessment on 10/19
Bilateral pneumonia suspected.
COVID/flu negative
Prior history of bronchiectasis.
Afebrile with normal white count, although immunocompromised to recent chemotherapy.
Reports nonproductive cough with minimal hemoptysis prior to presentation.
Check procalcitonin level. Normal
Narrow antibiotics to Unasyn and doxycycline
Pulmonology evaluation appreciated
Consider steroid trial, although with no evidence of bronchospasm on exam
Paroxysmal atrial fibrillation.
Updated echocardiogram with preserved LVEF, and mild to moderate pericardial effusion with no evidence of tamponade
Continue propranolol as ordered
Reported hallucinations
Will continue oxycodone with caution for now. Patient was informed not to take every 6 hours unless required for pain.
Pancreatic carcinoma
Status post partial pancreas resection.
Status post multiple rounds of chemotherapy including 5-FU regimen, clinical trials, currently on gemcitabine and Abraxane 2 weeks prior to presentation.
Primary oncology Dr. Pia LINDSEY [phone], [phone]
Full code.
DVT prophylaxis heparin
Anticipated Discharge: 24 - 48 hours
Subjective/Interval History
-
Date of Service: October 23, 2024
Objective Data
-
Labs:
Laboratory Results
10/23/24
05:54
WBC 12.4 H
Hgb 9.8 L
Hct 28.9 L
Plt Count 240 D
Sodium 136
Potassium 3.8
Chloride 100
Carbon Dioxide 29
BUN 28 H
Creatinine 1.2 H
Glucose 82
Calcium 8.8
Total Bilirubin 0.4
AST 126 H
ALT 85 H
Alkaline Phosphatase 327 H
Vital Signs:
Vital Signs
Temp Pulse Resp BP Pulse Ox
98.7 F 83 17 113/73 94
10/23/24 11:54 10/23/24 11:54 10/23/24 11:54 10/23/24 11:54 10/23/24 11:54
I&O
10/22/24 10/23/24 10/24/24
06:59 06:59 06:59
Intake Total 1490 / 1490 810 / 810
Balance 1490 / 1490 810 / 810
Physical Exam
-
General: Well Developed and No Apparent Distress
HEENT: Normocephalic, Atraumatic and Moist Mucous Membranes
Respiratory: Clear to Auscultation
Cardiac: Regular Rhythm and S1/S2; Negative Murmur, Rub or Gallop
GI: Soft, Nontender, Nondistended and Normal Bowel Sounds; Negative Organomegaly
Rectal: Deferred by Provider
Musculoskeletal: No Clubbing, No Cyanosis and No Edema
Skin: Negative Rash
Neuro: Nonfocal/Grossly Intact
[2024-10-23 15:57] VITALS: BP 115/69
[2024-10-23] MEDS: NEURONTIN 300 MG PO ×2 (16:51→22:00)
[2024-10-23 19:21] VITALS: BP 126/71
--- NOTE | 2024-10-23 19:46 | PTCARENOTE ---
per the meeting with her oncologist pt states it didn't go as well as they hoped. she said her oncologist said to ask for something better for pain management with a longer life span. she also told her to see who they offer for palliative/hospice so
if we could get the consult for that put in tomorrow. this nurse communicated this to MD and case management. just adding to chart since this nurse is not back tomorrow
[2024-10-23] MEDS: CLARITIN 10 MG PO (22:00)
[2024-10-23 23:22] VITALS: BP 130/75
[2024-10-24] VITALS (7 sets, daily range): BP systolic 94–123; BP diastolic 53–73
[2024-10-24] MEDS: UNASYN IV ×2 (01:58→09:42)
[2024-10-24] MEDS: MOTRIN 400 MG PO ×4 (03:53→22:29)
[2024-10-24] MEDS: ROXICODONE 2.5 MG PO ×4 (03:53→22:28)
[2024-10-24] MEDS: SYNTHROID 88 MCG PO (03:55)
[2024-10-24] MEDS: VIBRAMYCIN 100 MG PO (08:22)
[2024-10-24] MEDS: VITAMIN C 1000 MG PO (08:22)
[2024-10-24] MEDS: OSCAL CAL 500 500 MG PO ×2 (08:22→20:26)
[2024-10-24] MEDS: THERAGRAN 1 TABLET PO (08:22)
[2024-10-24] MEDS: VITAMIN D3 (cholecalciferol) 25 MCG PO (08:22)
[2024-10-24] MEDS: NEURONTIN 300 MG PO ×3 (08:22→22:29)
[2024-10-24] MEDS: HEPARIN 5000 UNITS SC ×2 (08:22→20:26)
--- NOTE | 2024-10-24 09:20 | W.PN.PUL3 ---
Today's Communication / Plan
-
s/p R-sided thora on 10/22/2024 removing 750 cc of hazy ania-colored fluid
Recurrent right-sided effusion is likely malignant
Pleural fluid from 10/18/2024 is negative for malignancy (likely false negative)
Repeat echo in 7-10 days as per cardiology; currently no evidence of tamponade so no urgent need to drain
Recommend indwelling pleural catheter and patient has agreed to this; will likely occur tomorrow; our pulmonary office will manage this after it is placed
Check CXR tomorrow to assess for bilateral pleural effusions and if left effusion is increasing then would have her get a thoracentesis while down for r-sided Pleurx
Continue with supplemental O2 and wean as tolerated to keep SpO2 >90%
Reviewed plan of care with patient
Assessment
-
74-year-old female with history of stage IV pancreatic cancer with metastatic disease to the lung, receiving chemotherapy at [place] as well as bronchiectasis and papillary thyroid carcinoma status post thyroidectomy presented with shortness
of breath and productive cough, found to have pneumonia-pulmonary consulted for pneumonia and pleural effusion 10/19/24.
Bilateral pleural effusions s/p R thoracentesis 10/18/24--900 mL straw-colored exudative fluid, cultures negative with NGTD, cytology negative for malignancy
Left thoracentesis 10/19/24--Ultrasound not enough fluid for thoracentesis
Right thoracentesis 10/22/2024 - 750cc of hazy, ania colored fluid (cytology pending)
Immunocompromised
Small�moderate circumferential pericardial effusion without tamponade - likely malignant pericardial effusion
Pancreatic cancer with metastatic disease to the lung and liver.
Transaminitis likely due to hepatic metastasis
NALINI (baseline creatinine 0.8)
Protein calorie malnutrition.
Vsyddh-[id number] 9.6.
Thrombocytopenia- now resolved
Mild hyponatremia
Conditions present prior to admission:
Pancreatic cancer, stage IV/chemotherapy, lung metastases.
Bronchiectasis. P
Papillary thyroid cancer/thyroidectomy/radioactive iodine.
Asthma.
Osteopenia.
Melanoma 2016.
Plan
Respiratory decompensation likely related to underlying lung disease with pneumonia and pleural effusions-No known previous pulmonary disease, now has suspected pulmonary mets
Supplemental oxygen as needed--97% on 2-3L NC--this could be weaned off as tolerated while keeping SpO2 >90%
Aspiration precautions.
Nebulizers if needed-currently not bronchospastic
Incentive spirometry
Mucus clearing devices
Mucolytics as needed.
Follow up cultures.
Influenza negative
COVID negative
Pleural fluid cultures from 10/18/2024 + 10/22/2024 show NGTD
Urine Legionella and streptococcal antigen negative
Blood cultures from 10/18/2024 show NGTD
MRSA negative
Empiric antibiotics- s/p IV vancomycin from 10/18 - 10/20 and s/p Zosyn 10/19 - 10/20; s/p Unasyn (started 10/20 - 10/24/2024) and Doxy (started 10/19 until 10/24/2024)
Continue to monitor off ABx
Bilateral pleural effusions status post right thoracentesis on 10/18/2024-cultures negative, cytology negative for malignancy.
Left thoracentesis not possible given small pocket
Cell count 10/18/24: pH 7.48 - wbc 228 - glu 111 - ldh 451 - serum LDH unable to obtain (hemolyzed x 3; inconclusive due to lack of serum comparison)
Likely exudative give pleural fluid LDH is 451
Repeat right-sided thoracentesis done on 10/22/2024 removing 750 cc of hazy, exudative ania-colored fluid. Glucose 104, T protein 2.8, LDH 376; follow-up cytology + cultures
Repeat CXR on 10/23/2024 showed minimal reaccumulation of right-sided pleural fluid with slight worsening of left-sided pleural effusion
We discussed role of ASEPT/PleurX and pt had spoke to her oncologist from [place] (Dr. Arellano), and the patient has agreed to a chronic indwelling pleural catheter. This would like to be placed tomorrow.
Check CXR tomorrow morning as now her left hemithorax sounds absent with concern for increasing left-sided pleural effusion. If morning CXR on 10/25/2024 shows increased size of left pleural effusion then she should get a left-sided thoracentesis at
the same time she has a right-sided Pleurx
Once chronic indwelling pleural catheter is placed, our pulmonary office will manage it
Check proBNP--237 on 10/19/2024
Echo performed on 10/22/2024 - shows small�moderate circumferential pericardial effusion without evidence of tamponade, with preserved LVEF at 64% without regional WMA, normal RV size and function with no sig valvular Dz
Cardiology recommends repeat echo in 7-10 days to continue monitoring pericardial fluid; if patient has sudden tachycardia, chest pain or worsening SOB then would obtain stat echo to rule out developing tamponade
Last echo in January 2024 showing preserved LVEF at 65 to 70% with normal diastolic function, with valvular heart disease with mild MR, mild AI and normal PASP at 22 mmHg
Paroxysmal Afib noted, cards eval
Fluid likely related to underlying cancer, we discussed role of ASEPT
She was noted to have fluid present as far back at Nov
s/p trial of lasix on 10/20 + 10/21 - would not recommend additional lasix as fluid is likely due to malignancy
Monitor hemoglobin.
Transfuse as needed to keep Hb>7g/dL; keep plt>20k
Trend LFTs, which is likely elevated due to hepatic mets
Abdominal ultrasound with Doppler shows no evidence for ascites, with normal directional blood flow with no evidence of hepatic vein thrombosis, and a small hypoechoic mass in the mid abdomen which is likely due to her pancreatic cancer
Replace electrolytes to keep K>4, Mg>2
Trend serum creatinine and monitor UOP
DVT prophylaxis-on subcutaneous heparin; would change to LMWH if Cr improves given her active malignancy
Nutrition especially in light of significant protein calorie malnutrition.
PT/OT
Pain control
Reviewed with , Magen, at the bedside
Outpatient oncology [id number] at [place]-also had opinion from [facility]-has finished a couple phase 1 trials
She is now DNR/DNI as of 10/24/2024; she will follow up with palliative care as an outpatient as she is not interested in continuing chemotherapy at this time. This was decided after she spoke with her oncologist from [place] (Dr. Arellano). She is,
however, not ready yet for hospice
Studies:
CT chest 10/30/18-4 mm left lower lobe nodule stable compared to CT chest 2013, no acute disease.
CT chest 10/18/2024-pneumonia, no pulmonary embolism, hilar lymphadenopathy and pulmonary nodules consistent with metastatic disease and bilateral pulmonary pleural effusions
Echocardiogram 02/02/24-EF 65-70%, normal diastolic function
Total time spent today was 38 minutes for this encounter. Time includes reviewing laboratory test/imaging results, reviewing pertinent medical records, obtaining and reviewing medical history, performing an appropriate exam, ordering medications,
tests and procedures. Time also includes documentation of this encounter, coordinating patient care and communicating with other healthcare professionals. Total time does not include separately billed tests performed on this date of service.
Subjective Data
-
Date of Service:
Date of Service: October 24, 2024
Chief Complaint: Pulmonary Follow Up
Subjective:
Patient seen and evaluated today at bedside. Afebrile overnight. Cytology from pleural fluid from 10/18/2024 is negative for malignancy. Other pleural fluid that was collected is still pending. She is currently on 2 L/min nasal cannula. ,
Magen, at bedside and all questions were answered. She spoke with her oncologist yesterday from [place] and she is not interested in starting chemotherapy, instead she will visit with palliative care. She is not ready yet to start hospice. Currently
denies chest pain, COSME, nausea, fevers or chills, although she says she is becoming more short of breath as of today.
Review of Systems
General: Other (Negative unless mentioned above)
Objective Data
Data Reviewed
Vital Signs / I&O / Oxygen:
Vital Signs
Temp Pulse Resp BP Pulse Ox
98.3 F 86 16 107/66 91
10/24/24 07:35 10/24/24 07:35 10/24/24 07:35 10/24/24 07:35 10/24/24 09:08
Intake and Output
10/23/24 10/24/24 10/25/24
06:59 06:59 06:59
Intake Total 810 / 810 1340 / 1340
Balance 810 / 810 1340 / 1340
SaO2 91
Nasal Cannula flow liters per 2
minute
Physical Exam
General: Respiratory Distress (n), Comfortable, Chills (n), Sweats (n) and Other (NAD)
HEENT: Normocephalic, Anicteric and Moist Mucous Membranes
Cardiovascular: S1-S2 and Peripheral Edema (n)
Respiratory: Wheeze (n), Crackles (Bilaterally from the middle lung orosco to the upper lung orosco), Rhonchi (n), Non-Labored Respirations, Stridor (n) and Other (Absent breath sounds in the bases bilaterally up to 1/[address] up)
GI: Soft, Non Distended, Non Tender and Normal Bowel Sounds
Neurology: AO x 3 and Tremors (n)
Skin: Warm, Dry, Jaundice (n) and Bruising (seen along lower abdomen with larger bruise seen on left flank which is non-tender)
Labs/Micro/Reports
Lab Data
10/23/24 05:54
10/23/24 05:54
Microbiology
10/18/24 15:39 Blood/Venous Blood Culture - Final
No Growth - Final Report
10/18/24 15:53 Blood/Venous Blood Culture - Final
No Growth - Final Report
10/22/24 15:10 Pleural Fluid Gram Stain - Final
10/18/24 16:59 Pleural Fluid Body Fluid Culture - Final
No Growth After 72 Hours
10/18/24 16:59 Pleural Fluid Gram Stain - Final
--- NOTE | 2024-10-24 10:43 | PN.CDI ---
CDI
- -
CDI:
Physician Documentation Request
Admit Date: 10/18/24 16:14
Dear Doctor Precious,
Please review the following and provide your response in the progress notes.
Clinical Indicators:
- Progress notes indicate 'Protein calorie malnutrition BMI of 19' without specificity
- Average documented 63% nutrient intake for 4 days
- Patient admit for acute respiratory failure with bilateral pleural effusions and pancreatic cancer on chemo
Based on the above information and your assessment, which of the following most accurately represents the patient's nutritional status?
Malnutrition (specify if mild, moderate or severe)
Cachexia without malnutrition
Underweight without malnutrition
No nutritional deficiency
Other (please specify)
[place] Criteria ([facility] Hospitalist 2017)
2 or more criteria must be present for either
non severe or severe malnutrition
Note that the criteria differs related to the
presence of an acute or chronic illness
Acute Illness Chronic Illness
Energy Intake Non Severe: <75% for >7 days Non Severe: <75% for >1 month
Severe: <50% for >5 days Severe: <75% for >1 month
Weight Loss Non Severe: 1-2% over 1 week Non Severe: 5% over 1 month
5% over 1 month 7.5% over 3 months
7.5% over 3 months 10% over 6 months
1 year N/A 20% over 1 year
Severe: >2% over 1 week Severe: >5% over 1 month
>5% over 1 month >7.5% over 3 months
>7.5% over 3 months >10% over 6 months
1 year N/A >20% over 1 year
Body Fat Non Severe: Mild Decrease Non Severe: Mild Loss
Severe: Moderate Decrease Severe: Severe Loss
Muscle Mass Non Severe: Mild Decrease Non Severe: Mild Loss
Severe: Moderate Decrease Severe: Severe Loss
Fluid Accumulation Non Severe: Mild Accumulation Non Severe: Mild Accumulation
Severe: Moderate to severe Severe: Moderate to severe
accumulation accumulation
Reduced [place] Strength Non Severe: N/A Non Severe: N/A
Severe: Measurably reduced Severe: Measurably reduced
Additional criteria that can be used to Determine if Mild or Moderate Malnutrition ([employer]ck Manual 2018)
Mild Moderate Severe
Albumin gm/dl <3.0 gm/dl <2.5 gm/dl <2.0 gm/dl
Pre Albumin mg/dl <15 gm/dl <10 mg/dl <5.0 mg/dl
BMI <18.5 <17 <16
Use of terms such as suspected, likely, concern for, or probable (associated with a specific diagnosis that is being evaluated, monitored, or treated as if it exists) are acceptable and can be coded in the inpatient setting, when documented at the
time of discharge.
Thank you,
Brant Pillai RN
CDI Specialist
Please use your independent medical judgment in providing your response.
--- NOTE | 2024-10-24 11:30 | PTCARENOTE ---
Patient and spouse requesting more information on palliative care vs hospice. This RN communicated with MD, palliative care consult placed by this RN, this RN communicated with palliative care team regarding consult.
--- NOTE | 2024-10-24 13:14 | W.CON.PAL ---
Consultation
-
Date/Time Consultation Requested: 10/24/2024
Date/Time Consultation Performed: 10/24/2024
Requesting Provider: Dr. Gibson
Performing Provider: Dr. Maurer
Reason for Consult: Goals of Care Discussion
Primary Diagnosis: Pancreatic Cancer
Reason for Admission
Illness Course/HPI
74 y/o female admitted to [facility] for dyspnea secondary to b/l pna/pleural effusions in the setting of stage IV pancreatic cancer. Patient met with hospice earlier in the week, requested to meet with palliative care as well.
patient reports they have exhausted all lines of chemotherapy at this time.
Received thoracentesis x 2 this hospitalization, and reports there is a plan for pleurex placement
Functional Status
Lives with spouse in [address] home, 1st floor powder room
At her baseline is independent, was at the gym 2 weeks ago.
Currently requiring oxygen and fatiguing easily.
Patient and spouse are supported by nearby neighbours, they do not have kids or other family members nearby
Goals of Care Discussion
-
Individuals Present for Discussion & Relationship to Patient:
Patient, spouse
Patient able to participate in discussion at time of visit: Yes
Patient's Information Preferences: Fully Involved/Able to Participate
Patient Goals
Patient's goals are comfort oriented
Discussed palliative care and hospice services. at this time patient is ready to start with palliative with eventual transition to hospice when starts needing more help at the home with her personal needs.
Discussed palliative care team structure, hours, etc.
She has completed an advanced directive
Discussed code status -will change to DNR
Pain & Symptom Assessment
Patient Symptoms
Patient Symptoms: Pain (managed with oxycodone and now added gabapentin ), Dyspnea and Fatigue
-
Pain at home managed with oxycodone 2.5mg q6 hours but has to wake up at night to maintain pain control. Recently started on gabapentin, which is making her feel drowsy
Objective Data
-
Objective Data:
Vital Signs
Temp Pulse Resp BP Pulse Ox
98.8 F 89 16 121/71 93
10/24/24 11:21 10/24/24 11:21 10/24/24 11:21 10/24/24 11:21 10/24/24 11:21
Laboratory Results
10/23/24 05:54
10/23/24 05:54
Total Protein 5.1 g/dl (6.3-8.2) L 10/23/24 05:54
Albumin 2.9 g/dl (3.5-5.0) L 10/23/24 05:54
Palliative Performance Scale
Palliative Performance Scale:
PPS Level Ambulation Activity & Evidence of Disease Self Care Intake Conscious Level
100% Full Normal Activity & Work; Full Intake Full
No Evidence of Disease
90% Full Normal Activity & Work; Full Normal Full
Some Evidence of Disease
80% Full Normal Activity with Effort Full Normal or Full
Some Evidence of Disease Reduced
70% Reduced Unable Normal Job/Work Full Normal or Full
Significant Disease Reduced
60% Reduced Unable Hobby/Housework Occasional Normal or Full or Confusion
Significant Disease Assistance Reduced
50% Mainly Sit/Lie Unable to do Any Work Considerable Normal or Full or Confusion
Extensive Disease Assistance Req'd Reduced
40% Mainly in Bed Unable to do Most Activity Mainly Assistance Normal or Full or Drowsy;
Extensive Disease Reduced +/- Confusion
30% Totally Bed Unable to do Any Activity Total Care Normal or Full or Drowsy;
Bound Extensive Disease Reduced +/- Confusion
20% Totally Bed Bound Unable to do Any Activity Total Care Minimal to Full or Drowsy;
Extensive Disease Sips +/- Confusion
10% Totally Bed Bound Unable to do Any Activity Total Care Mouth Care Drowsy or Coma;
Extensive Disease Only +/- Confusion
0%
PPS Score Level:
Palliative Performance Score Response
Palliative Performance Score Response: 50%
Physical Exam
-
General: No Apparent Distress and Comfortable
HEENT: Oxygen
Neuro: Awake, Alert and Oriented
Psych: Calm and Intact Judgement/Insight
Assessment / Plan
-
Assessment/Plan:
Agreeable to home palliative care with eventual transition to hospice care
change code status to DNR
Planning for pleurex
Total floor time 60 mins
Care Reviewed
Data Reviewed
Reviewed with: Patient
--- NOTE | 2024-10-24 13:25 | CM ---
Reviewed the chart notes and spoke with the patient and her spouse at the bedside. Patient anticipates pleurx cath placement this admission. Patient agreeable with VN and Palliative Care. Referrals sent via [facility]. continues to be
available to patient/family and is monitoring medical plan for needs at discharge.
Plan: Discharge to home when medically stable with VN and Palliative Care services. Patient anticipates having a pleurx cath placed prior to discharge.
--- NOTE | 2024-10-24 15:30 | VNURNOTE ---
Home Health Liaison met with patient and spouse at bedside to discuss [facility] nurse/therapy, visits, schedule and homebound status. Patient is agreeable and understands that visits at home will be 2-3 x per week to assess and teach medical management.
Multiple questions answered about estimated length of VN need, Pleurx/Asept cath potential drainage frequencies, and VN 24 hr on-call offering. [facility] brochure provided with contact information. Patient is aware that [facility] will contact them for start
of care in 1-2 days after discharge from . Watching for new home 02 needs.
[facility] referral completed in [facility].
--- NOTE | 2024-10-24 17:04 | W.PN.HOSP.TC ---
Today's Communication/Plan
-
Palliative care input appreciated.
Interventional radiology consultation for right Pleurx placement.
Adjust analgesic regimen, currently on oxycodone/Neurontin
Discharge planning
Observe closely off antibiotic
Assessment / Plan
Assessment / Plan
Impression:
Acute hypoxic respiratory failure.
Bilateral pleural effusions.
Metastatic lymphadenopathy.
Bilateral pneumonia suspected.
Immunocompromise state
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
-On chemotherapy with gemcitabine and Abraxane 2 weeks prior to admission.
Elevated LFT
Protein calorie malnutrition BMI of 19
Other conditions:
Bronchiectasis by history.
History of papillary thyroid cancer status post thyroidectomy and radiation treatment.
Mild intermittent asthma.
History of melanoma removal.
Osteopenia.
Mitral valve prolapse
Plan:
Acute hypoxic respiratory failure.
On exam she is saturating at 85% on room air.
Likely multifactorial and suspect secondary to metastatic lung disease and bilateral pleural effusion, possibly pneumonia.
Continue oxygen supplementation and following below.
No evidence of CHF upon presentation
Recent echocardiogram within normal limit
CT scan of the chest negative for PE
Bilateral pleural effusion.
Status post right thoracentesis 10/18 900 cc with no evidence of empyema. Gram stain and cultures negative to date
Follow-up chest x-ray suggestive of pleural fluid recannulation of the right
Repeat right thoracentesis with 700 mL out on 10/22
Interventional radiology consult for right Pleurx placement
Minimal left pleural effusion not amenable for thoracentesis as per assessment on 10/19
Bilateral pneumonia suspected.
COVID/flu negative
Prior history of bronchiectasis.
Afebrile with normal white count, although immunocompromised to recent chemotherapy.
Reports nonproductive cough with minimal hemoptysis prior to presentation.
Check procalcitonin level. Normal
Narrow antibiotics to Unasyn and doxycycline
Pulmonology evaluation appreciated
Completed completed 6-day course of antibiotics on 10/24
Paroxysmal atrial fibrillation.
Updated echocardiogram with preserved LVEF, and mild to moderate pericardial effusion with no evidence of tamponade
Continue propranolol as ordered
Reported hallucinations
Will continue oxycodone with caution for now. Patient was informed not to take every 6 hours unless required for pain.
Pancreatic carcinoma
Status post partial pancreas resection.
Status post multiple rounds of chemotherapy including 5-FU regimen, clinical trials, currently on gemcitabine and Abraxane 2 weeks prior to presentation.
Primary oncology Dr. Palacio [facility] [phone], [phone]
Malignant pain
Continue oxycodone 2.5 mg as needed with addition of Neurontin.
Full code.
DVT prophylaxis heparin
Anticipated Discharge: 24 - 48 hours
Subjective/Interval History
-
Date of Service: October 24, 2024
Objective Data
-
Vital Signs:
Vital Signs
Temp Pulse Resp BP Pulse Ox
98.8 F 89 20 111/64 96
10/24/24 15:59 10/24/24 15:59 10/24/24 15:59 10/24/24 15:59 10/24/24 15:59
I&O
10/23/24 10/24/24 10/25/24
06:59 06:59 06:59
Intake Total 810 / 810 1340 / 1340
Balance 810 / 810 1340 / 1340
Physical Exam
-
General: Well Developed and No Apparent Distress
HEENT: Normocephalic, Atraumatic and Moist Mucous Membranes
Respiratory: Clear to Auscultation
Cardiac: Regular Rhythm and S1/S2; Negative Murmur, Rub or Gallop
GI: Soft, Nontender, Nondistended and Normal Bowel Sounds; Negative Organomegaly
Rectal: Deferred by Provider
Musculoskeletal: No Clubbing, No Cyanosis and No Edema
Skin: Negative Rash
Neuro: Nonfocal/Grossly Intact
[2024-10-24] MEDS: INDERAL 20 MG PO (17:39)
--- NOTE | 2024-10-24 18:48 | PTCARENOTE ---
Patient's tele monitor alarming for afib in 150s-160s; upon assessment by this RN, patient stating she feels palpitations, occasional PARISI. BP 125/86, patient 95% on 2L. MD made aware, patient medicated with PRN PO propranolol. Patient's HR in
80s-90s NSR on monitor one hour after administration, patient states relief of symptoms.
--- NOTE | 2024-10-24 19:46 | PTCARENOTE ---
Patient to be NPO after breakfast in AM for IR/Pleurx cath insertion. Patient aware.
[2024-10-24] MEDS: CLARITIN 10 MG PO (22:30)
[2024-10-25] VITALS (9 sets, daily range): BP systolic 81–144; BP diastolic 60–82
[2024-10-25] MEDS: MOTRIN 400 MG PO ×4 (03:51→22:26)
[2024-10-25] MEDS: ROXICODONE 2.5 MG PO ×4 (03:51→22:28)
[2024-10-25] MEDS: SYNTHROID 88 MCG PO (06:11)
[2024-10-25] MEDS: VITAMIN C 1000 MG PO (08:23)
[2024-10-25] MEDS: NEURONTIN 300 MG PO ×3 (08:23→22:27)
[2024-10-25] MEDS: HEPARIN 5000 UNITS SC ×2 (08:23→22:26)
[2024-10-25] MEDS: OSCAL CAL 500 500 MG PO ×2 (08:23→22:26)
[2024-10-25] MEDS: VITAMIN D3 (cholecalciferol) 25 MCG PO (08:23)
[2024-10-25] MEDS: THERAGRAN 1 TABLET PO (08:23)
--- NOTE | 2024-10-25 08:58 | W.PN.PUL3 ---
Today's Communication / Plan
-
s/p R-sided thora on 10/22/2024 removing 750 cc of hazy ania-colored fluid
Recurrent right-sided effusion is likely malignant
Pleural fluid from 10/18/2024 is negative for malignancy (likely false negative)
Repeat echo in 7-10 days as per cardiology; currently no evidence of tamponade so no urgent need to drain
Recommend indwelling pleural catheter and patient has agreed to this; currently not in the fluid for right-sided Pleurx
Repeat CXR tomorrow and if enough pleural fluid has accumulated then she will get a right-sided Pleurx, otherwise can reassess as an outpatient
If patient feels well tomorrow and does not get a Pleurx, then she can go home after home O2 assessment is done
If patient does get Pleurx tomorrow then would observe 1 more night and then discharge home on Tuesday
Once Pleurx is inserted then our office will manage it
Continue with supplemental O2 and wean as tolerated to keep SpO2 >90%
Reviewed plan of care with patient
Assessment
-
74-year-old female with history of stage IV pancreatic cancer with metastatic disease to the lung, receiving chemotherapy at [place] as well as bronchiectasis and papillary thyroid carcinoma status post thyroidectomy presented with shortness
of breath and productive cough, found to have pneumonia-pulmonary consulted for pneumonia and pleural effusion 10/19/24.
Bilateral pleural effusions s/p R thoracentesis 10/18/24--900 mL straw-colored exudative fluid, cultures negative with NGTD, cytology negative for malignancy
Left thoracentesis 10/19/24--Ultrasound not enough fluid for thoracentesis
Right thoracentesis 10/22/2024 - 750cc of hazy, ania colored fluid (cytology negative for malignancy)
Immunocompromised
Small�moderate circumferential pericardial effusion without tamponade - likely malignant pericardial effusion
Pancreatic cancer with metastatic disease to the lung and liver.
Transaminitis likely due to hepatic metastasis
NALINI (baseline creatinine 0.8)
Protein calorie malnutrition.
[id number] 9.6.
Thrombocytopenia- now resolved
Mild hyponatremia - now resolved
Conditions present prior to admission:
Pancreatic cancer, stage IV/chemotherapy, lung metastases.
Bronchiectasis. P
Papillary thyroid cancer/thyroidectomy/radioactive iodine.
Asthma.
Osteopenia.
Melanoma 2016.
Plan
Respiratory decompensation likely related to underlying lung disease with pneumonia and pleural effusions-No known prior Hx of pulmonary disease --> now has suspected pulmonary mets
Supplemental oxygen as needed--97% on 2-3L NC--this could be weaned off as tolerated while keeping SpO2 >90%
Check walking pulse oximetry prior to discharge
Aspiration precautions.
Nebulizers if needed-currently not bronchospastic
Incentive spirometry
Mucus clearing devices
Mucolytics as needed.
Follow up cultures.
Influenza negative
COVID negative
Pleural fluid cultures from 10/18/2024 + 10/22/2024 show NGTD
Urine Legionella and streptococcal antigen negative
Blood cultures from 10/18/2024 show NGTD
MRSA negative
Empiric antibiotics- s/p IV vancomycin from 10/18 - 10/20 and s/p Zosyn 10/19 - 10/20; s/p Unasyn (started 10/20 - 10/24/2024) and Doxy (started 10/19 until 10/24/2024)
Continue to monitor off ABx
Bilateral pleural effusions status post right thoracentesis on 10/18/2024-cultures negative, cytology negative for malignancy.
Left thoracentesis not possible given small pocket
Cell count 10/18/24: pH 7.48 - wbc 228 - glu 111 - ldh 451 - serum LDH unable to obtain (hemolyzed x 3; inconclusive due to lack of serum comparison)
Likely exudative give pleural fluid LDH is 451
Repeat right-sided thoracentesis done on 10/22/2024 removing 750 cc of hazy, exudative ania-colored fluid. Glucose 104, T protein 2.8, LDH 376; cytology negative for malignancy; cultures NGTD
Repeat CXR on 10/23/2024 showed minimal reaccumulation of right-sided pleural fluid with slight worsening of left-sided pleural effusion
We discussed role of ASEPT/PleurX and pt had spoke to her oncologist from [place] (Dr. Arellano), and the patient has agreed to a chronic indwelling pleural catheter.
Patient went down for Pleurx catheter insertion today into right hemithorax but there was not enough fluid. Instead she underwent left-sided thoracentesis removing 350 cc of straw-colored exudative fluid; follow-up pleural fluid culture +
cytopathology
Recheck CXR tomorrow and if no fluid is present then she will go down for right-sided Pleurx. Otherwise this can be reassessed as an outpatient and she can go home after home O2 assessment done
Once chronic indwelling pleural catheter is placed, our pulmonary office will manage it
Check proBNP--237 on 10/19/2024
Echo performed on 10/22/2024 - shows small�moderate circumferential pericardial effusion without evidence of tamponade, with preserved LVEF at 64% without regional WMA, normal RV size and function with no sig valvular Dz
Cardiology recommends repeat echo in 7-10 days to continue monitoring pericardial fluid; if patient has sudden tachycardia, chest pain or worsening SOB then would obtain stat echo to rule out developing tamponade
Last echo in January 2024 showing preserved LVEF at 65 to 70% with normal diastolic function, with valvular heart disease with mild MR, mild AI and normal PASP at 22 mmHg
Paroxysmal Afib noted, cards eval
Fluid likely related to underlying cancer, we discussed role of ASEPT
She was noted to have fluid present as far back at Nov
s/p trial of lasix on 10/20 + 10/21 - would not recommend additional lasix as fluid is likely due to malignancy
Monitor hemoglobin.
Transfuse as needed to keep Hb>7g/dL; keep plt>20k
Trend LFTs, which is likely elevated due to hepatic mets
Abdominal ultrasound with Doppler shows no evidence for ascites, with normal directional blood flow with no evidence of hepatic vein thrombosis, and a small hypoechoic mass in the mid abdomen which is likely due to her pancreatic cancer
Replace electrolytes to keep K>4, Mg>2
Trend serum creatinine and monitor UOP
DVT prophylaxis-on subcutaneous heparin; would change to LMWH if Cr improves given her active malignancy
Nutrition especially in light of significant protein calorie malnutrition.
PT/OT
Pain control
Reviewed with , Magen, at the bedside
Outpatient oncology w[facility] at [facility]-also had opinion from [facility]-has finished a couple phase 1 trials
She is now DNR/DNI as of 10/24/2024; she will follow up with palliative care as an outpatient as she is not interested in continuing chemotherapy at this time. This was decided after she spoke with her oncologist from [place] (Dr. Arellano). She is,
however, not ready yet for hospice
Studies:
CT chest 10/30/18-4 mm left lower lobe nodule stable compared to CT chest 2013, no acute disease.
CT chest 10/18/2024-pneumonia, no pulmonary embolism, hilar lymphadenopathy and pulmonary nodules consistent with metastatic disease and bilateral pulmonary pleural effusions
Echocardiogram 02/02/24-EF 65-70%, normal diastolic function
Total time spent today was 36 minutes for this encounter. Time includes reviewing laboratory test/imaging results, reviewing pertinent medical records, obtaining and reviewing medical history, performing an appropriate exam, ordering medications,
tests and procedures. Time also includes documentation of this encounter, coordinating patient care and communicating with other healthcare professionals. Total time does not include separately billed tests performed on this date of service.
Subjective Data
-
Date of Service:
Date of Service: October 25, 2024
Chief Complaint: Pulmonary Follow Up
Subjective:
Patient seen and evaluated today at bedside. Patient's at bedside. She is currently on 3 L/min. Went down for Pleurx insertion however her right-sided effusion is not large enough for Pleurx insertion. Left-sided thora performed removing
350 cc of straw-colored, exudative fluid. She says she feels a little bit better since the floor. Denies chest pain, shoulder pain, back pain, abdominal pain, fevers or chills.
Review of Systems
General: Other (Negative unless mentioned above)
Objective Data
Data Reviewed
Vital Signs / I&O / Oxygen:
Vital Signs
Temp Pulse Resp BP Pulse Ox
98.2 F 74 16 103/60 94
10/25/24 07:56 10/25/24 07:56 10/25/24 07:56 10/25/24 07:56 10/25/24 07:56
Intake and Output
10/24/24 10/25/24 10/26/24
06:59 06:59 06:59
Intake Total 1340 / 1340 1320 / 1320
Balance 1340 / 1340 1320 / 1320
SaO2 94
Nasal Cannula flow liters per 2
minute
Physical Exam
General: Respiratory Distress (n), Comfortable, Chills (n), Sweats (n) and Other (NAD)
HEENT: Normocephalic, Anicteric and Moist Mucous Membranes
Cardiovascular: S1-S2 and Peripheral Edema (n)
Respiratory: Wheeze (n), Crackles (Bilaterally from the middle lung orosco to the upper lung orosco), Rhonchi (n), Non-Labored Respirations, Stridor (n) and Other (Absent breath sounds in the bases bilaterally up to 1/[address] up)
GI: Soft, Non Distended, Non Tender and Normal Bowel Sounds
Neurology: AO x 3 and Tremors (n)
Skin: Warm, Dry, Jaundice (n) and Bruising (seen along lower abdomen with larger bruise seen on left flank which is non-tender)
Labs/Micro/Reports
Lab Data
10/23/24 05:54
10/23/24 05:54
Microbiology
10/18/24 15:39 Blood/Venous Blood Culture - Final
No Growth - Final Report
10/18/24 15:53 Blood/Venous Blood Culture - Final
No Growth - Final Report
10/22/24 15:10 Pleural Fluid Gram Stain - Final
--- NOTE | 2024-10-25 12:36 | CM ---
Reviewed the chart notes. Anticipate going to interventional radiology for right Pleurx placement today. continues to be available to patient/family and is monitoring medical plan for needs at discharge.
Plan: Discharge to home with VN services and Palliative Care services.
[2024-10-25 15:52] LABS: Body Fluid pH 7.57
[2024-10-25 16:02] LABS: Body Fluid Mononuclear 98.1 %; Body Fluid Polymorphonuclear 1.9 %; Body Fluid WBC 425 /CUMM
[2024-10-25 16:03] LABS: Body Fluid Second Tech FB
[2024-10-25 16:10] LABS: Body Fluid Glucose 91 mg/dl; Body Fluid LDH 433 U/L; Body Fluid Protein 2.9 g/dl; Body Fluid Triglycerides 38 mg/dl
--- NOTE | 2024-10-25 16:32 | W.PN.HOSP.TC ---
Today's Communication/Plan
-
Monitor for pleural fluid reaccumulation.
Discharge planning
Assessment / Plan
Assessment / Plan
Impression:
Acute hypoxic respiratory failure.
Bilateral pleural effusions.
Metastatic lymphadenopathy.
Bilateral pneumonia suspected.
Immunocompromise state
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
-On chemotherapy with gemcitabine and Abraxane 2 weeks prior to admission.
Elevated LFT
Protein calorie malnutrition BMI of 19
Other conditions:
Bronchiectasis by history.
History of papillary thyroid cancer status post thyroidectomy and radiation treatment.
Mild intermittent asthma.
History of melanoma removal.
Osteopenia.
Mitral valve prolapse
Plan:
Acute hypoxic respiratory failure.
On exam she is saturating at 85% on room air.
Likely multifactorial and suspect secondary to metastatic lung disease and bilateral pleural effusion, possibly pneumonia.
Continue oxygen supplementation and following below.
No evidence of CHF upon presentation
Recent echocardiogram within normal limit
CT scan of the chest negative for PE
Bilateral pleural effusion.
Status post right thoracentesis 10/18 900 cc with no evidence of empyema. Gram stain and cultures negative to date
Follow-up chest x-ray suggestive of pleural fluid recannulation of the right
Repeat right thoracentesis with 700 mL out on 10/22
Left thoracentesis 10/25 300 mL
Interventional radiology consult for right Pleurx placement inpatient versus outpatient depends on the fluid recannulation rate
Bilateral pneumonia suspected.
COVID/flu negative
Prior history of bronchiectasis.
Afebrile with normal white count, although immunocompromised to recent chemotherapy.
Reports nonproductive cough with minimal hemoptysis prior to presentation.
Check procalcitonin level. Normal
Narrow antibiotics to Unasyn and doxycycline
Pulmonology evaluation appreciated
Completed completed 6-day course of antibiotics on 10/24
Paroxysmal atrial fibrillation.
Updated echocardiogram with preserved LVEF, and mild to moderate pericardial effusion with no evidence of tamponade
Continue propranolol as ordered
Reported hallucinations
Will continue oxycodone with caution for now. Patient was informed not to take every 6 hours unless required for pain.
Pancreatic carcinoma
Status post partial pancreas resection.
Status post multiple rounds of chemotherapy including 5-FU regimen, clinical trials, currently on gemcitabine and Abraxane 2 weeks prior to presentation.
Primary oncology Dr. Pia LINDSEY [phone], [phone]
Malignant pain
Continue oxycodone 2.5 mg as needed with addition of Neurontin.
Full code.
DVT prophylaxis heparin
Anticipated Discharge: Within 24 hours
Subjective/Interval History
-
Date of Service: October 25, 2024
Objective Data
-
Vital Signs:
Vital Signs
Temp Pulse Resp BP Pulse Ox
98.1 F 80 20 130/74 95
10/25/24 14:35 10/25/24 15:39 10/25/24 15:39 10/25/24 15:39 10/25/24 14:35
I&O
10/24/24 10/25/24 10/26/24
06:59 06:59 06:59
Intake Total 1340 / 1340 1320 / 1320
Balance 1340 / 1340 1320 / 1320
Physical Exam
-
General: Well Developed and No Apparent Distress
HEENT: Normocephalic, Atraumatic and Moist Mucous Membranes
Respiratory: Clear to Auscultation
Cardiac: Regular Rhythm and S1/S2; Negative Murmur, Rub or Gallop
GI: Soft, Nontender, Nondistended and Normal Bowel Sounds; Negative Organomegaly
Rectal: Deferred by Provider
Musculoskeletal: No Clubbing, No Cyanosis and No Edema
Skin: Negative Rash
Neuro: Nonfocal/Grossly Intact
[2024-10-25] MEDS: CLARITIN 10 MG PO (22:27)
[2024-10-26] MEDS: INDERAL 20 MG PO (02:33)
[2024-10-26 03:22] VITALS: BP 120/78
[2024-10-26] MEDS: ROXICODONE PO (03:54)
[2024-10-26] MEDS: MOTRIN PO (03:54)
--- NOTE | 2024-10-26 04:27 | PTCARENOTE ---
While asleep, pt went into rapid afib with HR 130s-140s. When awoken, symptomatic with palpitations. BP 120/78. PRN propanolol administered, see MAR. Pt HR came down to 90s-110s, still in afib. Notified JAREN Alvarez. Recheck BP 100/68. Pt
asymptomatic. No new orders at this time.
[2024-10-26] MEDS: NEURONTIN 300 MG PO ×2 (06:24→14:44)
[2024-10-26] MEDS: SYNTHROID 88 MCG PO (06:24)
--- NOTE | 2024-10-26 06:47 | W.PN.UPDATE ---
Update Note
Progress Note Update
propanolol given for HR 130-140 uncontrolled afib. Improved to 90-100 but remained in afib. Asymptomatic. Usually she c/o palpitations but slept through this.
[2024-10-26 07:35] VITALS: BP 99/63
[2024-10-26] MEDS: VITAMIN D3 (cholecalciferol) 25 MCG PO (08:39)
[2024-10-26] MEDS: VITAMIN C 1000 MG PO (08:39)
[2024-10-26] MEDS: HEPARIN 5000 UNITS SC (08:39)
[2024-10-26] MEDS: MOTRIN 400 MG PO ×2 (08:39→16:30)
[2024-10-26] MEDS: THERAGRAN 1 TABLET PO (08:39)
[2024-10-26] MEDS: OSCAL CAL 500 500 MG PO (08:39)
--- NOTE | 2024-10-26 09:31 | W.PN.PUL3 ---
Today's Communication / Plan
-
s/p R-sided thora on 10/22/2024 removing 750 cc of hazy ania-colored fluid
Recurrent right-sided effusion is likely malignant
Pleural fluid from 10/18/2024 is negative for malignancy (likely false negative)
Repeat echo in 7-10 days as per cardiology; currently no evidence of tamponade so no urgent need to drain
Recommend indwelling pleural catheter and patient has agreed to this; currently not enough fluid for right-sided Pleurx - reassess as an outpatient
Check home O2 assessment prior to discharge
Once Pleurx is inserted then our office will manage it
Continue with supplemental O2 and wean as tolerated to keep SpO2 >90%
No additional recommendations from a pulmonary perspective and she can be discharged home if cleared to do so by cardiology given she was in rapid A-fib overnight. Pulmonary service will now sign off. Thank you for allowing us to be involved in the
care of this patient. Outpatient pulmonary office follow-up will be arranged with CXR on the day of office visit. If effusion is large enough then we will send to IR for Pleurx at that time. Pulmonary service will now sign off. Please call back
with any questions or concerns.
Assessment
-
74-year-old female with history of stage IV pancreatic cancer with metastatic disease to the lung, receiving chemotherapy at [place]/[facility] as well as bronchiectasis and papillary thyroid carcinoma status post thyroidectomy presented with shortness
of breath and productive cough, found to have pneumonia-pulmonary consulted for pneumonia and pleural effusion 10/19/24.
Impression:
Bilateral pleural effusions s/p R thoracentesis 10/18/24--900 mL straw-colored exudative fluid, cultures negative with NGTD, cytology negative for malignancy
Left thoracentesis 10/19/24--Ultrasound not enough fluid for thoracentesis
Right thoracentesis 10/22/2024 - 750cc of hazy, ania colored fluid (cytology negative for malignancy)
Immunocompromised
Small�moderate circumferential pericardial effusion without tamponade - likely malignant pericardial effusion
Pancreatic cancer with metastatic disease to the lung and liver.
Transaminitis likely due to hepatic metastasis
NALINI (baseline creatinine 0.8)
Protein calorie malnutrition.
Kemvul-zicowmvwvt-dtmdhqnoad 9.6.
Thrombocytopenia- now resolved
Mild hyponatremia - now resolved
Conditions present prior to admission:
Pancreatic cancer, stage IV/chemotherapy, lung metastases.
Bronchiectasis. P
Papillary thyroid cancer/thyroidectomy/radioactive iodine.
Asthma.
Osteopenia.
Melanoma 2016.
Plan
Respiratory decompensation likely related to underlying lung disease with pneumonia and pleural effusions-No known prior Hx of pulmonary disease --> now has suspected pulmonary mets
Supplemental oxygen as needed--97% on 2-3L NC--this could be weaned off as tolerated while keeping SpO2 >90%
Check walking pulse oximetry prior to discharge
Aspiration precautions.
Nebulizers if needed-currently not bronchospastic
Incentive spirometry
Mucus clearing devices
Mucolytics as needed.
Follow up cultures.
Influenza negative
COVID negative
Pleural fluid cultures from 10/18/2024 + 10/22/2024 show NGTD
Urine Legionella and streptococcal antigen negative
Blood cultures from 10/18/2024 show NGTD
MRSA negative
Empiric antibiotics- s/p IV vancomycin from 10/18 - 10/20 and s/p Zosyn 10/19 - 10/20; s/p Unasyn (started 10/20 - 10/24/2024) and Doxy (started 10/19 until 10/24/2024)
Continue to monitor off ABx
Bilateral pleural effusions s/p right thoracentesis on 10/18/2024-cultures negative, cytology negative for malignancy.
Left thoracentesis not possible given small pocket
Cell count 10/18/24: pH 7.48 - wbc 228 - glu 111 - ldh 451 - serum LDH unable to obtain (hemolyzed x 3; inconclusive due to lack of serum comparison)
Likely exudative give pleural fluid LDH is 451
-Repeat right-sided thoracentesis done on 10/22/2024 removing 750 cc of hazy, exudative ania-colored fluid. Glucose 104, T protein 2.8, LDH 376; cytology negative for malignancy; cultures NGTD
-Repeat CXR on 10/23/2024 showed minimal reaccumulation of right-sided pleural fluid with slight worsening of left-sided pleural effusion
-We discussed role of ASEPT/PleurX and pt had spoke to her oncologist from [place] (Dr. Arellano), and the patient has agreed to a chronic indwelling pleural catheter.
-Patient went down for Pleurx catheter insertion on 10/25/2024 into right hemithorax but there was not enough fluid. Instead she underwent left-sided thoracentesis removing 350 cc of straw-colored exudative fluid; follow-up pleural fluid culture +
cytopathology
CXR re-checked this AM and there remains stable, small pleural effusions. Not enough fluid for Pleurx at this time and this will need to be addressed as an outpatient.
Once chronic indwelling pleural catheter is placed, our pulmonary office will manage it
Check proBNP--237 on 10/19/2024
Echo performed on 10/22/2024 - shows small�moderate circumferential pericardial effusion without evidence of tamponade, with preserved LVEF at 64% without regional WMA, normal RV size and function with no sig valvular Dz
Cardiology recommends repeat echo in 7-10 days to continue monitoring pericardial fluid; if patient has sudden tachycardia, chest pain or worsening SOB then would obtain stat echo to rule out developing tamponade
Last echo in January 2024 showing preserved LVEF at 65 to 70% with normal diastolic function, with valvular heart disease with mild MR, mild AI and normal PASP at 22 mmHg
Paroxysmal Afib noted, cards eval --> pt was in a-fib overnight (10/25 - 10/26/2024) with HR in 120-130s, and she was Tx with propanolol.
Fluid likely related to underlying cancer, we discussed role of ASEPT
She was noted to have fluid present as far back at Nov
s/p trial of lasix on 10/20 + 10/21 - would not recommend additional lasix as fluid is likely due to malignancy
Monitor hemoglobin.
Transfuse as needed to keep Hb>7g/dL; keep plt>20k
Trend LFTs, which is likely elevated due to hepatic mets
Abdominal ultrasound with Doppler on 10/24/2024 shows no evidence for ascites, with normal directional blood flow with no evidence of hepatic vein thrombosis, and a small hypoechoic mass in the mid abdomen which is likely due to her pancreatic cancer
Replace electrolytes to keep K>4, Mg>2
Trend serum creatinine and monitor UOP
DVT prophylaxis-on subcutaneous heparin; would change to LMWH if Cr improves given her active malignancy
Nutrition especially in light of significant protein calorie malnutrition.
PT/OT
Pain control
Reviewed with , Magen, at the bedside
Outpatient oncology [id number] at [facility]-also had opinion from [facility]-has finished a couple phase 1 trials
She is now DNR/DNI as of 10/24/2024; she will follow up with palliative care as an outpatient as she is not interested in continuing chemotherapy at this time. This was decided after she spoke with her oncologist from [place] (Dr. Arellano). She is,
however, not ready yet for hospice
No additional recommendations from a pulmonary perspective and she can be discharged home if cleared to do so by cardiology given she was in rapid A-fib overnight. Pulmonary service will now sign off. Thank you for allowing us to be involved in the
care of this patient. Outpatient pulmonary office follow-up will be arranged with CXR on the day of office visit. If effusion is large enough then we will send to IR for Pleurx at that time. Pulmonary service will now sign off. Please call back
with any questions or concerns.
Studies:
CT chest 10/30/18-4 mm left lower lobe nodule stable compared to CT chest 2013, no acute disease.
CT chest 10/18/2024-pneumonia, no pulmonary embolism, hilar lymphadenopathy and pulmonary nodules consistent with metastatic disease and bilateral pulmonary pleural effusions
Echocardiogram 02/02/24-EF 65-70%, normal diastolic function
Total time spent today was 41 minutes for this encounter. Time includes reviewing laboratory test/imaging results, reviewing pertinent medical records, obtaining and reviewing medical history, performing an appropriate exam, ordering medications,
tests and procedures. Time also includes documentation of this encounter, coordinating patient care and communicating with other healthcare professionals. Total time does not include separately billed tests performed on this date of service.
Subjective Data
-
Date of Service:
Date of Service: October 26, 2024
Chief Complaint: Pulmonary Follow Up
Subjective:
Patient was seen and evaluated this morning. CXR today shows tiny bilateral pleural effusions with relatively unchanged appearance compared to yesterday. Went into A-fib overnight, treated with propranolol 20mg x1 (home med which is prn at home).
She is currently on 2 L/min nasal cannula. Medical Care Manager at bedside and talking with the family. at bedside as well and I answered all of his questions. She currently denies chest pain, COSEM, nausea, vomiting, fevers or chills.
Review of Systems
General: Other (Negative unless mentioned above)
Objective Data
Data Reviewed
Vital Signs / I&O / Oxygen:
Vital Signs
Temp Pulse Resp BP Pulse Ox
98.4 F 75 16 99/63 94
10/26/24 07:35 10/26/24 07:35 10/26/24 07:35 10/26/24 07:35 10/26/24 07:35
Intake and Output
10/25/24 10/26/24 10/27/24
06:59 06:59 06:59
Intake Total 1320 / 1320 920 / 920
Balance 1320 / 1320 920 / 920
SaO2 94
Nasal Cannula flow liters per 2
minute
Physical Exam
General: Respiratory Distress (n), Comfortable, Chills (n), Sweats (n) and Other (NAD)
HEENT: Normocephalic, Anicteric and Moist Mucous Membranes
Cardiovascular: S1-S2 and Peripheral Edema (n)
Respiratory: Wheeze (n), Crackles (Bilaterally from the middle lung orosco to the upper lung orosco), Rhonchi (n), Non-Labored Respirations, Stridor (n) and Other (Reduced breath sounds in the bases bilaterally up to 1/[address] up)
GI: Soft, Non Distended, Non Tender and Normal Bowel Sounds
Neurology: AO x 3 and Tremors (n)
Skin: Warm, Dry, Jaundice (n) and Bruising (seen along lower abdomen with larger bruise seen on left flank which is non-tender)
Labs/Micro/Reports
Lab Data
10/23/24 05:54
10/23/24 05:54
Microbiology
10/25/24 15:30 Pleural Fluid Gram Stain - Preliminary
10/18/24 15:39 Blood/Venous Blood Culture - Final
No Growth - Final Report
10/18/24 15:53 Blood/Venous Blood Culture - Final
No Growth - Final Report
[2024-10-26] MEDS: ROXICODONE 2.5 MG PO ×2 (10:08→16:31)
[2024-10-26 11:10] VITALS: BP 100/69
--- NOTE | 2024-10-26 11:28 | W.PN.UPDATE ---
Update Note
Progress Note Update
We brought this patient down yesterday for a Asept catheter but there was not enough fluid. Based on her CXR today we still feel there is not enough fluid to place the catheter today either. This can be done as an outpatient if she is supposed to
go home otherwise we can reevaluate Tuesday if she is still an inpatient. Thank you
--- NOTE | 2024-10-26 12:55 | CM ---
Addendum entered by Sabra Marte RN 10/26/24 16:41:
Patient home O2 provide by [facility].
Original Note:
Reviewed the chart notes. Patient will need home O2 evaluation prior to discharge. Currently on O2 @ 2L/min continuous.
Plan: Discharge to home with VN services and Palliative Care services. Will need O2 arranged prior to discharge.
--- NOTE | 2024-10-26 13:06 | W.DS.TRANS ---
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
-
Discharge Instructions:
Sleep Apnea Risk Low
Discharge Diagnosis/Procedures Acute hypoxic respiratory failure.
Bilateral pleural effusions.
Metastatic lymphadenopathy.
Bilateral pneumonia suspected.
Immunocompromise state
Metastatic to the lung and liver pancreatic
carcinoma.
-On chemotherapy with gemcitabine and Abraxane 2
weeks prior to admission.
Elevated LFT
Protein calorie malnutrition BMI of 19
Diet Regular
Others Tests Follow-up echocardiogram 11/06/2024 at 1 PM at
[facility]. Please arrive 15 minutes
early to register.
Instructions:
Stand-Alone Forms:
Changes to Home Medications: Yes
Discharge Medications:
DC Medications w/original date entered in [employer]
levothyroxine 88 mcg tablet 88 mcg PO DAILY Thyroid 07/30/19
biotin 1 mg capsule 2 mg PO DAILY Supplement ##0 11/02/21
calcium carbonate 500 mg PO BID Supplement ##0 11/02/21
cholecalciferol (vitamin D3) 25 mcg (1,000 unit) tablet 1,000 units PO DAILY Supplement 11/02/21
ascorbic acid (vitamin C) 1,000 mg tablet (Vitamin C) 1 g PO DAILY 10/18/24
fexofenadine 180 mg tablet 180 mg PO HS 10/18/24
ondansetron HCl 8 mg tablet 8 mg PO Q8HPRN PRN nausea 10/18/24
therapeutic multivitamin 1 tab PO DAILY 10/18/24
gabapentin 300 mg capsule 300 mg PO TID #90 caps 10/26/24
ibuprofen 200 mg tablet (Advil) 400 mg (2 x 200 mg) PO Q6H PRN fever or pain #30 tabs 10/26/24
oxycodone 5 mg tablet 5 mg PO Q6H #30 tabs 10/26/24
propranolol 20 mg tablet 20 mg PO Q6HPRN PRN AFib/palpitations #60 tabs 10/26/24
Home Medication Changes
Neurontin started.
Propranolol started
Pending Results: No
[2024-10-26 15:25] VITALS: BP 109/63
--- NOTE | 2024-10-26 15:35 | W.PN.HOSP.TC ---
Today's Communication/Plan
-
Discharge planning
Assessment / Plan
Assessment / Plan
Impression:
Acute hypoxic respiratory failure.
Bilateral pleural effusions.
Metastatic lymphadenopathy.
Bilateral pneumonia suspected.
Immunocompromise state
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
-On chemotherapy with gemcitabine and Abraxane 2 weeks prior to admission.
Elevated LFT
Protein calorie malnutrition BMI of 19
Other conditions:
Bronchiectasis by history.
History of papillary thyroid cancer status post thyroidectomy and radiation treatment.
Mild intermittent asthma.
History of melanoma removal.
Osteopenia.
Mitral valve prolapse
Plan:
Acute hypoxic respiratory failure.
On exam she is saturating at 85% on room air.
Likely multifactorial and suspect secondary to metastatic lung disease and bilateral pleural effusion, possibly pneumonia.
Continue oxygen supplementation and following below.
No evidence of CHF upon presentation
Recent echocardiogram within normal limit
CT scan of the chest negative for PE
Patient is in need of oxygen supplementation.. Assessment showed desaturation down to 88% with exertion with improved pulse ox at 94% with 2 L of oxygen supplementation.
Patient is mobile within the home. Albuterol therapy has been discussed and is ineffective in treating hypoxemia-related symptoms.
Oxygen will improve the patient's symptoms.
Bilateral pleural effusion.
Status post right thoracentesis 10/18 900 cc with no evidence of empyema. Gram stain and cultures negative to date
Follow-up chest x-ray suggestive of pleural fluid recannulation of the right
Repeat right thoracentesis with 700 mL out on 10/22
Left thoracentesis 10/25 300 mL
Interventional radiology consult for right Pleurx placement inpatient versus outpatient depends on the fluid recannulation rate
Bilateral pneumonia suspected.
COVID/flu negative
Prior history of bronchiectasis.
Afebrile with normal white count, although immunocompromised to recent chemotherapy.
Reports nonproductive cough with minimal hemoptysis prior to presentation.
Check procalcitonin level. Normal
Narrow antibiotics to Unasyn and doxycycline
Pulmonology evaluation appreciated
Completed completed 6-day course of antibiotics on 10/24
Paroxysmal atrial fibrillation.
Updated echocardiogram with preserved LVEF, and mild to moderate pericardial effusion with no evidence of tamponade
Continue propranolol as ordered
Reported hallucinations
Will continue oxycodone with caution for now. Patient was informed not to take every 6 hours unless required for pain.
Pancreatic carcinoma
Status post partial pancreas resection.
Status post multiple rounds of chemotherapy including 5-FU regimen, clinical trials, currently on gemcitabine and Abraxane 2 weeks prior to presentation.
Primary oncology Dr. Pia LINDSEY [phone], [phone]
Malignant pain
Continue oxycodone 2.5 mg as needed with addition of Neurontin.
Full code.
DVT prophylaxis heparin
Anticipated Discharge: Today
Subjective/Interval History
-
Date of Service: October 26, 2024
Objective Data
-
Vital Signs:
Vital Signs
Temp Pulse Resp BP Pulse Ox
98.7 F 92 16 100/69 93
10/26/24 11:10 10/26/24 11:10 10/26/24 11:10 10/26/24 11:10 10/26/24 12:06
I&O
10/25/24 10/26/24 10/27/24
06:59 06:59 06:59
Intake Total 1320 / 1320 920 / 920
Balance 1320 / 1320 920 / 920
Physical Exam
-
General: Well Developed and No Apparent Distress
HEENT: Normocephalic, Atraumatic and Moist Mucous Membranes
Respiratory: Clear to Auscultation
Cardiac: Regular Rhythm and S1/S2; Negative Murmur, Rub or Gallop
GI: Soft, Nontender, Nondistended and Normal Bowel Sounds; Negative Organomegaly
Rectal: Deferred by Provider
Musculoskeletal: No Clubbing, No Cyanosis and No Edema
Skin: Negative Rash
Neuro: Nonfocal/Grossly Intact
--- NOTE | 2024-10-26 15:43 | VNURNOTE ---
Chart reviewed. Patient qualified for new home 02. Rx faxed to Genoveva at [facility] [phone]. She can deliver portable to bedside in 40 mins. Liaison spoke with patient. Reviewed to expect home 02 set up w/ [facility]. Patient is in agreement.
== END 2024-10-26 18:00 | disposition home health service (06) | DRG 180 ==
LOC: 2 NORTH 16:14
PROVIDERS: Internal Medicine Critical Care Medicine; Nurse Practitioner; Nurse Practitioner Family; Radiology Diagnostic Radiology; Radiology Vascular & Interventional Radiology; ADMITTING PHYSICIAN Hospitalist; ATTENDING PHYSICIAN Internal Medicine; CONSULT PHYSICIAN Internal Medicine Cardiovascular Disease; CONSULT PHYSICIAN Internal Medicine Critical Care Medicine; CONSULT PHYSICIAN Internal Medicine Hospice and Palliative Medicine; EMERGENCY PHYSICIAN Emergency Medicine; FAMILY PHYSICIAN Family Medicine
PROC: 0W993ZZ Drainage of Right Pleural Cavity, Percutaneous Approach (ICD-10-PCS; 2024-10-18)
PROC: 0W9B3ZZ Drainage of Left Pleural Cavity, Percutaneous Approach (ICD-10-PCS; 2024-10-25)
DX: C78.00 Secondary malignant neoplasm of unspecified lung (principal); J96.01 Acute respiratory failure with hypoxia; C25.9 Malignant neoplasm of pancreas, unspecified; J91.0 Malignant pleural effusion; C78.7 Secondary malignant neoplasm of liver and intrahepatic bile duct; E87.1 Hypo-osmolality and hyponatremia; E46 Unspecified protein-calorie malnutrition; Z68.1 Body mass index [BMI] 19.9 or less, adult; R44.3 Hallucinations, unspecified; I31.39 Other pericardial effusion (noninflammatory); D84.821 Immunodeficiency due to drugs; C79.89 Secondary malignant neoplasm of other specified sites; R74.01 Elevation of levels of liver transaminase levels; D69.6 Thrombocytopenia, unspecified; E89.0 Postprocedural hypothyroidism; I48.0 Paroxysmal atrial fibrillation; J45.20 Mild intermittent asthma, uncomplicated; R59.1 Generalized enlarged lymph nodes; J47.9 Bronchiectasis, uncomplicated; M85.80 Other specified disorders of bone density and structure, unspecified site; G89.3 Neoplasm related pain (acute) (chronic); I34.1 Nonrheumatic mitral (valve) prolapse; Z66 Do not resuscitate; Z85.820 Personal history of malignant melanoma of skin; Z92.3 Personal history of irradiation; Z92.21 Personal history of antineoplastic chemotherapy; Z88.2 Allergy status to sulfonamides; Z88.1 Allergy status to other antibiotic agents; Z91.040 Latex allergy status; Z85.850 Personal history of malignant neoplasm of thyroid; Z79.890 Hormone replacement therapy; Z11.52 Encounter for screening for COVID-19; Z79.60 Long term (current) use of unspecified immunomodulators and immunosuppressants
CPT/HCPCS: 88305; 32555; 71045; 71046; 71275; 76604; 76700; 80048; 80053; 80202; 82150; 82248; 82945; 83615; 83735; 83880; 83986; 84145; 84155; 84157; 84478; 85025; 87015; 87040; 87070; 87102; 87116; 87205; 87449; 87502; 87641; 87811; 87899; 88112; 88341; 88342; 89051; 93005; 93306; 93975; 96365; 99285; Q9967

== ENCOUNTER 2024-10-29 13:53 | Emergency (ER) | payer MEDICARE, OTHER, SELFPAY ==
[2024-10-29] VITALS (18 sets, daily range): BP systolic 86–124; BP diastolic 61–96; BMI 20.8
[2024-10-29 14:34] LABS: ALT (SGPT) 80 U/L (0-35); AST (SGOT) 172 U/L (14-36); Albumin 3.4 g/dl (3.5-5.0); Alkaline Phosphatase 492 U/L (38-126); Blood Urea Nitrogen 24 mg/dl (7-17); Calcium 9.1 mg/dl (8.4-10.2); Carbon Dioxide 27 mmol/L (22-30); Chloride 97 mmol/L (98-107); Glucose 151 mg/dl (70-99); Potassium 4.6 mmol/L (3.5-5.1); Sodium 132 mmol/L (135-145); Total Bilirubin 0.4 mg/dl (0.2-1.3); Total Protein 5.9 g/dl (6.3-8.2); eGFR > 60.00
[2024-10-29 14:44] LABS: Absolute Neutrophils -Man Diff 18.2 10^3/uL (1.4-6.5); Band Neutrophils 10 % (0-3); Eosinophils 1 % (0-6); Hematocrit 33.9 % (37.0-47.0); Hemoglobin 11.6 g/dL (12.0-16.0); Lymphocytes 7 % (20-51); Mean Corp Hgb Conc. 34.2 g/dL (33.0-37.0); Mean Corpuscular Volume 93.6 fL (81.0-99.0); Mean Platelet Volume 9.7 fL (7.4-10.4); Metamyelocytes 3 % (-); Monocytes 9 % (2-9); Normal RBC Morphology No; Nucleated Red Blood Cells 1 (-); Platelet Count 698 10^3/uL (130-400); Platelets Checked Yes; Red Blood Cell Count 3.62 10^6/uL (4.20-5.40); Red Cell Dist. Width 18.2 % (11.5-14.5); Segmented Neutrophils 70 % (42-75); White Blood Cell Count 22.8 10^3/uL (4.8-10.8)
[2024-10-29 14:45] LABS: Acanthocytes 1+; Anisocytosis 1+; Hypochromasia 1+; NT-proBNP 1040 pg/ml; Ovalocytes 1+; Polychromasia 1+; Target Cells 1+; Total Cells Counted 100; Troponin I 0.015 ng/ml
--- NOTE | 2024-10-29 15:15 | EDRN ---
Rj RAGSDALE in room w/ pt
--- NOTE | 2024-10-29 15:26 | EDRN ---
Portable CXR done at stretcher side at this time.
--- NOTE | 2024-10-29 15:35 | ED.GENMED ---
History of Present Illness
<FAHAD Vega Last Filed: 10/29/24 18:41>
General
Chief Complaint: Breathing Problem
Source: patient
Exam Limitations: none
Time Seen by Provider: 10/29/24 15:11
History of Present Illness
History of Present Illness:
74-year-old female with history of metastatic pancreatic cancer with mets to the liver and lung presents with shortness of breath and elevated heart rate. She has a history of paroxysmal atrial fibrillation. She is not anticoagulated. She was
working with occupational therapy today and they noticed that her heart rate was fast and she was hypotensive. She was discharged on 2 L of nasal oxygen. She has been on this. While here she received thoracentesis bilaterally. They considered a
Pleurx catheter however upon recheck there was not enough fluid to indicate a catheter. She denies chest pain. She does feel short of breath.
Past History
<Alvin Carson PA-C - Last Filed: 10/29/24 18:41>
Past History
ED Past Medical History: Cancer and Hypothyroidism
ED Past Surgical History: Other
Social History
Tobacco: Non-smoker
Personal:
Living: with family
Phy Exam
<FAHAD Vega Last Filed: 10/29/24 18:41>
Physical Exam
Physical Exam:
General: Cachectic appearing female with increased work of breathing.
HEENT: Normocephalic atraumatic
Heart: Tachycardic and irregular
Lungs: Diminished at the bases subtle rales at the bases as well
Abdomen is soft nontender
Extremities: Mild edema bilateral lower extremities
Scores
<FAHAD Vega Last Filed: 10/29/24 18:41>
Heart Failure Risk
Heart Failure Risk Score: Not Applicable
Course
<Alvin Carson PA-C - Last Filed: 10/29/24 18:41>
Orders/Labs/Results
Orders:
Orders
10/29/24
Electrocardiogram (*1) Stat
Comment: A-DN
10/29/24 14:00
Electrocardiogram (*1) Urgent
Reason for Study: Tachycardia
10/29/24 14:01
EKG- Treatment ONCE
10/29/24 14:11
Complete Blood Count/With Diff Urgent
Comprehensive Metabolic Panel Urgent
Manual Differential Urgent
NT-proBNP Urgent
Troponin I Urgent
10/29/24 15:22
Cr Chest Portable [CR Chest Portable - 1 View] Urgent
Comment:
Reason For Exam: SOB
Reason Study Needs to be Portable: Unable to Transport
10/29/24 15:31
Diltiazem HCl [Cardizem] 5 mg IV NOW STA
10/29/24 15:32
0.9% Sodium Chloride 250 ml [Nss] 250 ml IV BOLUS
10/29/24 15:45
Diltiazem 125 mg/125 ml Nss [Cardizem] 125 mg in 125 ml IV PER PROTOCOL
Initial dose in mg/hr, then titrate:: 5
Titrate to keep:: Heart rate 80-100 bpm
Titrate by mg/hr:: 5 mg/hr
Frequency of titrations (minutes):: 15
Maximum dose in mg/hr:: 15
Abnormal Lab Results
10/29/24
14:11
WBC 22.8 H 10^3/uL
(4.8-10.8)
RBC 3.62 L 10^6/uL
(4.20-5.40)
Hgb 11.6 L g/dL
(12.0-16.0)
Hct 33.9 L %
(37.0-47.0)
MCH 32.0 H pg
(27.0-31.0)
RDW 18.2 H %
(11.5-14.5)
Plt Count 698 H D 10^3/uL
(130-400)
Abs Neuts (Manual) 18.2 H 10^3/uL
(1.4-6.5)
Band Neutrophils 10 H %
(0-3)
Lymphocytes (Manual) 7 L %
(20-51)
Sodium 132 L mmol/L
(135-145)
Chloride 97 L mmol/L
(98-107)
BUN 24 H mg/dl
(7-17)
Glucose 151 H mg/dl
(70-99)
AST 172 H U/L
(14-36)
ALT 80 H U/L
(0-35)
Alkaline Phosphatase 492 H U/L
(38-126)
Total Protein 5.9 L g/dl
(6.3-8.2)
Albumin 3.4 L g/dl
(3.5-5.0)
10/29/24 14:11
10/29/24 14:11
Vital Signs
Initial and Last Documented VS:
Initial Vital Signs
Temp Pulse Resp BP Pulse Ox
98 F 90 16 124/96 95
10/29/24 13:57 10/29/24 13:57 10/29/24 13:57 10/29/24 13:57 10/29/24 13:57
Last Documented Vital Signs
Temp Pulse Resp BP Pulse Ox
98 F 92 24 110/66 93
10/29/24 13:57 10/29/24 18:30 10/29/24 18:30 10/29/24 18:30 10/29/24 18:30
<Tripp Luu DO - Last Filed: 10/29/24 15:43>
Orders/Labs/Results
Orders:
Orders
10/29/24
Electrocardiogram (*1) Stat
Comment: A-DN
10/29/24 14:00
Electrocardiogram (*1) Urgent
Reason for Study: Tachycardia
10/29/24 14:01
EKG- Treatment ONCE
10/29/24 14:11
Complete Blood Count/With Diff Urgent
Comprehensive Metabolic Panel Urgent
Manual Differential Urgent
NT-proBNP Urgent
Troponin I Urgent
10/29/24 15:22
Cr Chest Portable [CR Chest Portable - 1 View] Urgent
Comment:
Reason For Exam: SOB
Reason Study Needs to be Portable: Unable to Transport
10/29/24 15:31
Diltiazem HCl [Cardizem] 5 mg IV NOW STA
10/29/24 15:32
0.9% Sodium Chloride 250 ml [Nss] 250 ml IV BOLUS
10/29/24 15:45
Diltiazem 125 mg/125 ml Nss [Cardizem] 125 mg in 125 ml IV PER PROTOCOL
Initial dose in mg/hr, then titrate:: 5
Titrate to keep:: Heart rate 80-100 bpm
Titrate by mg/hr:: 5 mg/hr
Frequency of titrations (minutes):: 15
Maximum dose in mg/hr:: 15
Abnormal Lab Results
10/29/24
14:11
WBC 22.8 H 10^3/uL
(4.8-10.8)
RBC 3.62 L 10^6/uL
(4.20-5.40)
Hgb 11.6 L g/dL
(12.0-16.0)
Hct 33.9 L %
(37.0-47.0)
MCH 32.0 H pg
(27.0-31.0)
RDW 18.2 H %
(11.5-14.5)
Plt Count 698 H D 10^3/uL
(130-400)
Abs Neuts (Manual) 18.2 H 10^3/uL
(1.4-6.5)
Band Neutrophils 10 H %
(0-3)
Lymphocytes (Manual) 7 L %
(20-51)
Sodium 132 L mmol/L
(135-145)
Chloride 97 L mmol/L
(98-107)
BUN 24 H mg/dl
(7-17)
Glucose 151 H mg/dl
(70-99)
AST 172 H U/L
(14-36)
ALT 80 H U/L
(0-35)
Alkaline Phosphatase 492 H U/L
(38-126)
Total Protein 5.9 L g/dl
(6.3-8.2)
Albumin 3.4 L g/dl
(3.5-5.0)
10/29/24 14:11
10/29/24 14:11
Vital Signs
Initial and Last Documented VS:
Initial Vital Signs
Temp Pulse Resp BP Pulse Ox
98 F 90 16 124/96 95
10/29/24 13:57 10/29/24 13:57 10/29/24 13:57 10/29/24 13:57 10/29/24 13:57
Last Documented Vital Signs
Temp Pulse Resp BP Pulse Ox
98 F 92 24 110/66 93
10/29/24 13:57 10/29/24 18:30 10/29/24 18:30 10/29/24 18:30 10/29/24 18:30
Juanlt;Alvin Carson PA-C - Last Filed: 10/29/24 18:41>
MDM/Problems Addressed
Differential Diagnosis Includes:
Shortness of breath racing heart. Differential could include recurrent pleural effusion versus arrhythmia versus anemia versus infection.
Reviewed labs. She has leukocytosis with a white count of 22,000. Portable chest x-ray ordered. Heart rate in the room is as high as 190 and as low as 142. Looks like A-fib on the monitor. Blood pressure 101/89. Will administer small fluid
bolus and started on Cardizem bolus with Cardizem drip. Discussed with emergency room attending
<Tripp Luu DO - Last Filed: 10/29/24 15:43>
*Critical Care Note
Total Time (30-74mins, 75-104mins- exclusive of procedures): 45min
comment:
Patient arrives in rapid A-fib with transient hypotension. Placing on Cardizem with bolus and very closely monitoring vital signs.
<Alvin Carson PA-C - Last Filed: 10/29/24 18:41>
Update Note
Update Note:
Patient initially came into rapid atrial fibrillation that broke on its own just prior to receiving Cardizem. She did receive a small fluid bolus. Discussed findings with emergency room attending and pulmonology. X-ray actually looks a little bit
improved from most recent. She is on her baseline 2 L of oxygen. Revisited patient. Looks more comfortable blood pressure 110/60. No indication for admission at this point. Stable for discharge
I reviewed echocardiogram from October 22 of this year which showed an ejection fraction of 64%
ED Attending Note
<Alvin Carson PA-C - Last Filed: 10/29/24 18:41>
-
Portions of this chart may have been created with voice recognition software.� Occasional wrong word or��sound alike� substitutions may have occurred due to the inherent limitations of voice recognition software.
<Tripp Luu DO - Last Filed: 10/29/24 15:43>
ED Attending Note
Patient seen and examined by attending physician: Yes
I performed the substantive portion of visit, reviewed & personally made and approve the management plan that is documented in note by myself or ANDREWS.: Yes
ED Attending Note:
I evaluated the patient bedside. The patient's blood pressure currently is 120s over 90s. Heart rate is primarily in the 140s to 150s range. Will place on Cardizem. I spoke to family at bedside�requesting pulmonary be involved as well. There
was some talk about a Pleurx catheter as well.
Discharge Plan
Departure
Patient Disposition: Home (Routine Discharge)
Date of Disposition: 10/29/24
Time of Disposition: 18:39
Patient with high blood pressure during this ER visit?: No
Discharge Problem:
Atrial fibrillation
Prescriptions:
No Action
levothyroxine 88 MCG tablet
88 mcg PO DAILY
calcium carbonate 500 mg calcium (1,250 mg) Tablet
500 mg PO BID Qty: 0
cholecalciferol (vitamin D3) 1,000 UNITS tablet
1,000 units PO DAILY
biotin 1 mg Capsule
2 mg PO DAILY Qty: 0
ascorbic acid (vitamin C) [Vitamin C] 1,000 mg Tablet
1 g PO DAILY
ondansetron HCl 8 mg Tablet
8 mg PO Q8HPRN PRN (Reason: nausea)
therapeutic multivitamin Tablet
1 tab PO DAILY
fexofenadine 180 mg Tablet
180 mg PO HS
gabapentin 300 mg Capsule
300 mg PO TID Qty: 90 0RF
propranolol 20 mg Tablet
20 mg PO Q6HPRN PRN (Reason: AFib/palpitations) Qty: 60 0RF
acetaminophen [Tylenol] 325 mg Tablet
325 mg PO Q6HPRN PRN (Reason: mild pain/fever)
ibuprofen [Advil] 200 mg tablet
400 mg PO Q6HPRN PRN (Reason: fever/mild pain)
oxycodone 5 mg tablet
2.5 mg PO Q6H
Referrals:
Damon Sousa MD [Family Provider] -
Activity Restrictions/Additional Instructions:
Continue your oxygen and current medicine regimen. Return here for worsening symptoms otherwise follow-up with your doctor
Interventions
Interventions:
*Risk Screen - Suicide Last Done: 10/29/24 14:00
*General Assessment Last Done: 10/29/24 15:29
*Neglect/Abuse Screening Last Done: 10/29/24 14:00
ED- Fall Risk Assessment Last Done: 10/29/24 15:30
*ED COVID-19 Vaccine History Last Done: 10/29/24 15:29
ED- Cardiac Assessment Last Done: 10/29/24 15:30
ED- Pulmonary Assessment Last Done: 10/29/24 15:30
Discharge Date and Time
Print Language: KYRGYZ
--- NOTE | 2024-10-29 15:38 | EDRN ---
Dr. Alonso in room w/pt and spouse at this time.
--- NOTE | 2024-10-29 15:50 | EDRN ---
This RN went in to administer cardizem IV bolus, initiate infusion and NSS 250 mL IV bolus. This RN looked up and HR 96 and I noted NSR at the time. Rj RAGSDALE informed w/ EKG done and confirmed the rhythm change to NSR. Pt still breathing
heavy at the time.
--- NOTE | 2024-10-29 15:55 | EDRN ---
Rj RAGSDALE said to hold cardizem bolus and infusion as pt is presently in NSR as well as hold the IV NSS 250 mL fluid bolus as pt states her breathing remains heavy at this time.
[2024-10-29] MEDS: NSS IV (16:03)
--- NOTE | 2024-10-29 16:57 | EDRN ---
SBP in 80's w/ fluid bolus 250 NSS ordered by Rj RAGSDALE.
[2024-10-29] MEDS: NSS 250 IV (16:58)
--- NOTE | 2024-10-29 18:21 | EDRN ---
Rj RAGSDALE in room w/pt at this time.
--- NOTE | 2024-10-29 18:22 | EDRN ---
Pt has been tachypneic at rest w/ rates 28-38.
[2024-10-29] MEDS: ROXICODONE 2.5 MG PO (19:19)
== END 2024-10-29 19:52 | disposition home or self-care (01) ==
LOC: EMR 13:53
PROVIDERS: Student in an Organized Health Care Education/Training Program; EMERGENCY PHYSICIAN Emergency Medicine; FAMILY PHYSICIAN Family Medicine
DX: I48.91 Unspecified atrial fibrillation (principal); E03.9 Hypothyroidism, unspecified; C25.9 Malignant neoplasm of pancreas, unspecified; C78.00 Secondary malignant neoplasm of unspecified lung; C78.7 Secondary malignant neoplasm of liver and intrahepatic bile duct; Z99.81 Dependence on supplemental oxygen
CPT/HCPCS: 99285; 71045; 80053; 83880; 84484; 85025; 93005

== ENCOUNTER → 2024-11-06 12:41 | Outpatient (REF) | payer MEDICARE, OTHER, SELFPAY | LOC: RCS 12:41 | PROVIDERS: ATTENDING PHYSICIAN Internal Medicine Cardiovascular Disease; FAMILY PHYSICIAN Family Medicine; REFERRING PHYSICIAN Internal Medicine Hospice and Palliative Medicine | DX: I31.39 Other pericardial effusion (noninflammatory) (principal); C25.9 Malignant neoplasm of pancreas, unspecified; J91.0 Malignant pleural effusion | CPT/HCPCS: 93308; 71046; 93321; 93325 ==

== ENCOUNTER → 2024-11-09 09:43 | Outpatient (REF) | payer MEDICARE, OTHER, SELFPAY ==
[2024-11-09] VITALS (11 sets, daily range): BP systolic 84–138; BP diastolic 66–88
[2024-11-09 10:16] LABS: INR 1.04; PT 13.9 Sec (11.4-14.6)
[2024-11-09] MEDS: VANCOCIN 200 IV (10:47)
== END ==
LOC: REG 09:43
PROVIDERS: ATTENDING PHYSICIAN Physician Assistant; FAMILY PHYSICIAN Family Medicine; REFERRING PHYSICIAN Internal Medicine Critical Care Medicine
DX: D68.8 Other specified coagulation defects (principal); D68.9 Coagulation defect, unspecified
CPT/HCPCS: 32550; 36415; 75989; 85610; 99152; 99153; C1729; C1769